=== PATIENT | male | born 1960 | race Caucasian/White ===

== ENCOUNTER 2018-10-30 20:01 | Inpatient (IN) | payer MEDICARE, OTHER ==
[~2018-10-30] VITALS: Ht 363.2 cm; Wt 103.7 kg
[~2018-10-30 20:01] MED LIST: NO MEDS
--- NOTE | 2018-10-30 20:15 | ERD ---
ER Documentation Chief Complaint Chief Complaint Bilateral leg edema HPI The patient is a 58-year-old male, presenting to the ER because of worsening bilateral ankle edema for more than a month and general body swelling, gaining weight. He has been on steroid for more than a month for his kidney disease, denies fever, chills, neck pain, chest pain, dyspnea, abdominal pain, vomiting, complains of constipation, denies dysuria. He does smoke a pack a day, denies drinking Past medical history: Chronic kidney disease, CAD, hypertension Past surgical history: Stent PCI ROS All systems reviewed and are negative except as per history of present illness. Medications Home Meds Reported Medications [No Meds] No Conflict Check 03/09/15 Allergies Allergies: Coded Allergies: No Known Allergy (Unverified , 03/09/15) PMhx/Soc History of Surgery: Yes (NASAL, RIGHT EAR, BILATERAL EYE) Anesthesia Reaction: No Hx Neurological Disorder: No Hx Respiratory Disorders: No Hx Cardiac Disorders: No Hx Psychiatric Problems: No Hx Miscellaneous Medical Probl: No Hx Alcohol Use: No Hx Substance Use: No Hx Tobacco Use: No Physical Exam Vitals Vital Signs Date Temp Pulse Resp B/P (MAP) Pulse Ox O2 O2 Flow FiO2 Time Delivery Rate 10/30/18 97.4 90 23 121/97 100 Room Air 23:44 (105) 10/30/18 92 20 100 Nasal 4.0 23:37 Cannula 10/30/18 98.4 94 16 150/78 100 20:18 (102) Physical Exam Const: No acute distress. Anasarca Head: Atraumatic. Eyes: Normal Conjunctiva. ENT: Normal External Ears, Nose and Mouth. Neck: Full range of motion. No meningismus. Resp: Clear to auscultation bilaterally. Cardio: Regular rate and rhythm. Abd: Soft, non distended, normal bowel sounds, non tender. Skin: No petechiae or rashes. Back: No midline or flank tenderness. Ext: Bilateral leg pitting edema, no calf tenderness Neur: Awake and alert. No focal deficit Psych: Normal Mood and Affect. Result Diagram: 10/30/18203510/30/182035 Results 24 hrs Laboratory Tests Test 10/30/18 20:36 10/30/18 23:31 White Blood Count 14.4 10^3/ul Red Blood Count 1.94 10^6/ul Hemoglobin 5.6 g/dl Hematocrit 17.1 % Mean Corpuscular Volume 88.1 fl Mean Corpuscular Hemoglobin 28.9 pg Mean Corpuscular Hemoglobin Concent 32.7 g/dl Red Cell Distribution Width 16.6 % Platelet Count 221 10^3/UL Mean Platelet Volume 8.9 fl Immature Granulocytes % 2.400 % Neutrophils % % Segmented Neutrophils % (Manual) 79 % Band Neutrophils % (Manual) 3 % Lymphocytes % % Lymphocytes % (Manual) 14 % Monocytes % % Monocytes % (Manual) 4 % Eosinophils % % Basophils % % Nucleated Red Blood Cells % 0.0 /100WBC Immature Granulocytes # 0.340 10^3/ul Neutrophils # 10^3/ul Neutrophils # (Manual) 11.4 10^3/ul Band Neutrophils # 0.4 10^3/ul Lymphocytes (Manual) 2.0 10^3/ul Lymphocytes # 10^3/ul Monocytes # 10^3/ul Monocytes # (Manual) 0.5 10^3/ul Eosinophils # 10^3/ul Basophils # 10^3/ul Nucleated Red Blood Cells # 10^3/ul Platelet Estimate NORMAL Anisocytosis 2+ Microcytosis 2+ Sodium Level 137 mmol/L Potassium Level 5.5 mmol/L Chloride Level 110 mmol/L Carbon Dioxide Level 22 mmol/L Anion Gap 5 Blood Urea Nitrogen 55 mg/dl Creatinine 2.04 mg/dl Est Glomerular Filtrat Rate mL/min 34 mL/min Glucose Level 153 mg/dl Calcium Level 6.7 mg/dl Total Bilirubin 0.2 mg/dl Direct Bilirubin 0.00 mg/dl Indirect Bilirubin 0.2 mg/dl Aspartate Amino Transf (AST/SGOT) 19 IU/L Alanine Aminotransferase (ALT/SGPT) 31 IU/L Alkaline Phosphatase 52 IU/L Troponin I 0.037 ng/ml B-Type Natriuretic Peptide 3220 PG/ML Total Protein 4.0 g/dl Albumin 2.1 g/dl Globulin 1.90 g/dl Albumin/Globulin Ratio 1.10 Bedside Glucose 174 mg/dL Current Medications Medications Dose Sig/Mamadou Start Time Status Last (Trade) Ordered Route PRN Stop Time Admin Dose Reason Admin Ondansetron 4 mg ONCE STAT 10/30/18 DC 10/30/18 HCl (Zofran IV 21:31 22:07 Inj) 10/30/18 21:34 Furosemide 80 mg ONCE ONCE 10/30/18 DC 10/30/18 (Lasix) IV 22:00 22:52 10/30/18 22:01 Sodium 30 gm ONCE STAT 10/30/18 DC 10/30/18 Polystyrene PO 22:07 23:39 Sulfonate 10/30/18 22:13 (Kayexelate 15 Gm Kit (Powder+Sorbi hardeep)) Insulin 5 unit ONCE STAT 10/30/18 DC 10/30/18 Human IVP 22:07 23:38 Regular 10/30/18 22:13 (Humulin R) Dextrose 50 ml ONCE ONCE 10/30/18 DC 10/30/18 (D50w IV 22:30 23:38 Syringe) 10/30/18 22:31 Albuterol 5 mg ONCE STAT 10/30/18 DC 10/30/18 (Proventil HHN 22:07 23:35 0.083% (Neb)) 10/30/18 22:13 IV Flush 3 ml PER 10/30/18 (NS 3 ml) PROTOCOL IV 22:30 Ondansetron 4 mg Q6H PRN 10/30/18 HCl (Zofran PO 22:30 Tab) NAUSEA/VOMITI NG Ondansetron 4 mg Q6H PRN 10/30/18 HCl (Zofran IV 22:30 Inj) NAUSEA/VOMITI NG 650 mg Q6H PRN 10/30/18 Acetaminophen PO .PAIN 1-3 22:30 (Tylenol OR TEMP Tab) 1 tab Q6H PRN 10/30/18 Acetaminophen PO .PAIN 4-6 22:30 / Hydrocodone Bitart ([place] (5/325)) Docusate 100 mg Q12H PRN 10/30/18 Sodium PO 22:30 (Colace) .CONSTIPATION Bisacodyl 5 mg DAILY PRN 10/30/18 (Dulcolax) PO 22:30 .CONSTIPATION Hydralazine 10 mg Q4H PRN 10/30/18 HCl IV ELEVATED 22:30 (Apresoline) BLOOD PRESSURE Procedures/[place] [id number] [place] [id number] Radiology Main Line: [phone] DIAGNOSTIC IMAGING REPORT Patient: PEDRO HERNÁNDEZ : 1960 Age: 58 Sex: M MR #: [id number] DOS: 10/30/182036 Ordering MD: KRISTINE NAVA MD Location: E/R Room/Bed: PROCEDURE: XR Chest. CLINICAL INDICATION: Shortness of breath TECHNIQUE: Frontal chest x-ray was obtained. COMPARISON: None. FINDINGS: The heart is not enlarged. Mediastinum is not widened. No hilar masses seen. Lungs are clear of any infiltrates. There is no effusion or pneumothorax. The osseous structures appear normal. IMPRESSION: No evidence for active cardiopulmonary disease. .Rui Monson MD, Date Time Electronically viewed and signed by .Rui Monson MD, MD on 10/30/2018 22:02 .A/ CC: KRISTINE NAVA MD [id number] [place] [address] Radiology Main Line: [phone] DIAGNOSTIC IMAGING REPORT Patient: PEDRO HERNÁNDEZ : 1960 Age: 58 Sex: M MR #: [id number] DOS: 10/30/182036 Ordering MD: KRISTINE NAVA MD Location: E/R Room/Bed: PROCEDURE: US Lower extremity Venous. CLINICAL INDICATION: Shortness of breath TECHNIQUE: Multiple sonographic images of the bilateral lower extremity deep venous system were obtained utilizing grayscale, color-flow, compressive sonography and doppler imaging with augmentation. The images were reviewed on a PACS workstation. COMPARISON: None. FINDINGS: There is normal compressibility and flow within the bilateral common femoral, deep femoral, superficial femoral and popliteal veins. The deep veins of the calf were incompletely visualized. IMPRESSION: No sonographic evidence for deep venous thrombosis. .Rui Monson MD, Date Time Electronically viewed and signed by .Rui Monson MD, MD on 10/30/2018 22:02 .A/ CC: KRISTINE NAVA MD [phone] EKG: Read by emergency physician Rate/Rhythm: Normal Sinus Rhythm 93 beats/min QRS, ST, T-waves: No ST elevation, no T inversion, nonspecific T abnormality Impression: Abnormal EKG MEDICAL MAKING DECISION: The patient is a 58-year-old male, presenting with acute anasarca, acute symptomatic anemia, acute hyperkalemia. He was treated with Zofran 4 mg IV x2 for nausea, 2 unit of packed red blood cell for acute symptomatic anemia, Lasix 80 mg IV for acute anasarca, 1 amp D50 IV, 5 unit of regular insulin IV, Kayexalate 30 g p.o. and albuterol 5 mg nebulizer for acute hyperkalemia with good response. He requested a Weber catheter The differential diagnoses considered include but are not limited to gastrointestinal bleeding, electrolyte imbalance, asthma, COPD, pneumonia, pulmonary embolus, pleural effusion, congestive heart failure. Critical Care: Time: 35 minutes excluding all billable procedures. Treatments/Evaluations: Close monitoring and treatment of unstable vital signs, cardiorespiratory, and neurologic status, while maintaining tight balance of fluid, respiratory, and cardiac interventions. Departure Diagnosis: Primary Impression: Anasarca Additional Impressions: Hyperkalemia Symptomatic anemia Condition: Stable Comments I discussed the findings with the patient. I discussed the patient with Dr Valiente at 10:10 PM, who was made aware of the lab, the treatment, the patient condition. The patient is admitted to Tel Disclaimer: Inadvertent spelling and grammatical errors are likely due to EHR/dictation software use and do not reflect on the overall quality of patient care. Also, please note that the electronic time recorded on this note does not necessarily reflect the actual time of the patient encounter. KRISTINE NAVA MD Oct 30, 2018 20:15
[2018-10-30] MEDS ORDERED: ONDANSETRON 4 MG INJ IV STA (21:31)
[2018-10-30] MEDS ORDERED: FUROSEMIDE 40 MG INJ IV ONE (22:00)
[2018-10-30] MEDS ORDERED: SODIUM POLYSTYRENE 15 GM KIT (POWDER + SORBITOL) PO STA (22:07)
[2018-10-30] MEDS ORDERED: ALBUTEROL 0.083% (NEB) 2.5 MG/3 ML AMP HHN STA (22:07)
[2018-10-30] MEDS ORDERED: INSULIN REGULAR, HUMAN 100 UNIT/1 ML 3ML VIAL IVP STA (22:07)
[2018-10-30] MEDS ORDERED: HYDROCODONE/APAP (5/325) TAB PO PRN (22:30)
[2018-10-30] MEDS ORDERED: ONDANSETRON 4 MG INJ IV PRN (22:30)
[2018-10-30] MEDS ORDERED: DEXTROSE 50% 50 ML SYRINGE IV ONE (22:30)
[2018-10-30] MEDS ORDERED: ACETAMINOPHEN 325 MG TAB PO PRN (22:30)
[2018-10-30] MEDS ORDERED: NACL 0.9% 3 ML SYG IV SCH (22:30)
[2018-10-30] MEDS ORDERED: BISACODYL (EC) 5 MG TAB PO PRN (22:30)
[2018-10-30] MEDS ORDERED: DOCUSATE SODIUM 100 MG CAP PO PRN (22:30)
[2018-10-30] MEDS ORDERED: ONDANSETRON 4 MG TAB PO PRN (22:30)
[2018-10-30] MEDS ORDERED: hydrALAzine 20 MG INJ IV PRN (22:30)
[2018-10-31] VITALS (27 sets, daily range): BP systolic 132–196; BP diastolic 72–141; PULSE 80–111; RESP 11–25; Ht 363.2 cm; Wt 103.7 kg
[2018-10-31] MEDS ORDERED: CLOP75TA28 PO (00:31)
[2018-10-31] MEDS ORDERED: NIFE90TA11 PO (00:31)
[2018-10-31] MEDS ORDERED: PRED20TA PO (00:43)
[2018-10-31] MEDS ORDERED: CALC1TAB93 PO (01:18)
[2018-10-31] MEDS ORDERED: CARV6.2579 PO (01:18)
[2018-10-31] MEDS ORDERED: FURO20TA3 PO (01:18)
[2018-10-31] MEDS ORDERED: ASPI-817 PO (01:18)
[2018-10-31] MEDS ORDERED: FAMO20TA18 PO (01:18)
[2018-10-31] MEDS ORDERED: FAMOTIDINE IV 40 MG in SOD CHLORIDE 0.9% 250 ML IV SCH (04:00)
--- NOTE | 2018-10-31 04:25 | HP ---
Date/Time of Note Date/Time of Note DATE: 10/31/18 TIME: 03:52 Assessment/Plan VTE Prophylaxis SCD applied (from Nsg): Yes Pharmacological prophylaxis: NA/contraindicated Pharm contraindication: low risk/ambulating Lines/Catheters IV Catheter Type (from Nrsg): Saline Lock Assessment/Plan Hospital Course This is a 58-year-old male who was originally admitted to telemetry but is now being transferred to the ICU for: #1 active GI bleed: Patient does have a history of gastritis based on previous endoscopy/colonoscopy results. He had a dark bloody bowel movement followed by a dark vomitus during my encounter. Patient initially presented with hemoglobin of 5.6. He was ordered 2 units of PRBCs. At the current time I am going to be transferring him him in urgently to the ICU. We will start him on a famotidine drip as well as octreotide drip. I will order an additional 2 units of PRBC so a total of 4. Will check CBC every 6 hours. I will obtain a KUB. Once he is more stabilized will obtain a CT of the abdomen pelvis for a nuclear medicine scan bleeding scan. Will consult GI he has seen him in the past. #2 Acute on chronic kidney disease: I am concerned for possible nephrotic syndrome, though patient reports that his kidneys were fine up until May and that they went bad after he got contrast. He is currently been on steroids for the last month which leads me to believe that he may have some underlying medical renal disease. We will check a renal ultrasound. He microscopic UA, urinalysis, protein [employer]ING [employer]. We will check complement C3-C4. Will consult Dr. Brand. #3 coronary artery disease: Patient is status post stenting in May. He is currently on aspirin and Plavix. Given his GI bleed I will hold these. Will consult cardiology. #4 elevated BNP: we will check an echocardiogram, CHF could explain the lower extremity edema however his generalized anasarca I suspect is more likely secondary to another underlying disease. Will consult cardiology #5 Hyperkalemia: Patient present with a potassium 5.5. He did receive insulin albuterol, Kayexalate in the emergency department. #6 hypoalbuminemia: Possibly secondary to nephrotic syndrome, versus other. Will assess for underlying medical renal disease, #7 hypertension: Monitor closely PRN hydralazine #8 DVT GI prophylaxis: SCDs, famotidine drip Further treatment strategy will be implemented as per the clinical course Greater than 45 minutes critical care time was spent on the care management this patient. Result Diagram: 10/30/18203510/30/182035 Results 24hrs Laboratory Tests Test 10/30/18 20:36 10/30/18 23:31 10/31/18 00:34 White Blood Count 14.4 H Red Blood Count 1.94 L Hemoglobin 5.6 *L Hematocrit 17.1 L Mean Corpuscular Volume 88.1 Mean Corpuscular Hemoglobin 28.9 L Mean Corpuscular Hemoglobin Concent 32.7 Red Cell Distribution Width 16.6 H Platelet Count 221 Mean Platelet Volume 8.9 Immature Granulocytes % 2.400 H Neutrophils % Segmented Neutrophils % (Manual) 79 H Band Neutrophils % (Manual) 3 Lymphocytes % Lymphocytes % (Manual) 14 L Monocytes % Monocytes % (Manual) 4 Eosinophils % Basophils % Nucleated Red Blood Cells % 0.0 Immature Granulocytes # 0.340 H Neutrophils # Neutrophils # (Manual) 11.4 H Band Neutrophils # 0.4 Lymphocytes (Manual) 2.0 Lymphocytes # Monocytes # Monocytes # (Manual) 0.5 Eosinophils # Basophils # Nucleated Red Blood Cells # Platelet Estimate NORMAL Anisocytosis 2+ Microcytosis 2+ Sodium Level 137 Potassium Level 5.5 H Chloride Level 110 Carbon Dioxide Level 22 Anion Gap 5 Blood Urea Nitrogen 55 H Creatinine 2.04 H Est Glomerular Filtrat Rate mL/min 34 L Glucose Level 153 Calcium Level 6.7 L Total Bilirubin 0.2 Direct Bilirubin 0.00 Indirect Bilirubin 0.2 Aspartate Amino Transf (AST/SGOT) 19 Alanine Aminotransferase (ALT/SGPT) 31 Alkaline Phosphatase 52 Troponin I 0.037 B-Type Natriuretic Peptide 3220 H Total Protein 4.0 L Albumin 2.1 L Globulin 1.90 Albumin/Globulin Ratio 1.10 Bedside Glucose 174 248 H HPI/ROS Admit Date/Time Admit Date/Time Oct 30, 2018 at 22:13 Hx of Present Illness cc: worsening body swelling Patient is a poor historian The patient is a 58-year-old male, presenting to the ER because of worsening bilateral ankle edema for more than a month and general body swelling, gaining weight. He has been on steroid for more than a month for his kidney disease. He denies any hemetemesis, or melena, or bright red blood per rectum. During my encounter with the patient he actively had a very dark bowel movement and vomited dark blood as well. He denied any abd pain. he states he was stented in May at an outside hospital and he states he was told he developed kidney problems after due to the contrast he received. He has been on prednisone for that according to him. allergies: nkda meds: see jul ROS Const: As per HPI Eyes : No pain discharge or redness or change in visual acuity ENT: No pain, sore throat, congestion, congestion, dysphagia or discharge Respiratory: No shortness of breath, cough, sputum, wheezing, or pleuritic pain Cardiovascular: No chest pain, palpitation, PND, or edema GI : As per HPI Genitourinary: No dysuria, hematuria, flank pain , discharge or CVA tenderness Musculoskeletal: No joint pain, back pain, neck pain, restricted range of motion in neck or joints Skin: No rash, bruising or hives Neuro: No headache, dizziness, syncope, seizure, focal weakness Endocrine: No polyuria, polydipsia, temperature intolerance Psych: No hallucination, depression, anxiety or suicidal ideation PMH/Family/Social Past Medical History 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?, CAD, hype rtension Medications Current Medications IV Flush (NS 3 ml) 3 ml PER PROTOCOL IV ; Start 10/30/18 at 22:30 Ondansetron HCl (Zofran Tab) 4 mg Q6H PRN PO NAUSEA/VOMITING; Start 10/30/18 at 22:30 Ondansetron HCl (Zofran Inj) 4 mg Q6H PRN IV NAUSEA/VOMITING; Start 10/30/18 at 22:30 Acetaminophen (Tylenol Tab) 650 mg Q6H PRN PO .PAIN 1-3 OR TEMP; Start 10/30/18 at 22:30 Acetaminophen/ Hydrocodone Bitart ([place] (5/325)) 1 tab Q6H PRN PO .PAIN 4-6; Start 10/30/18 at 22:30 Bisacodyl (Dulcolax) 5 mg DAILY PRN PO .CONSTIPATION; Start 10/30/18 at 22:30 Octreotide Acetate 1 mg/ Dextrose 100 ml @ 5 mls/hr Q20H IV ; Start 10/31/18 at 04:00; Status UNV Famotidine 40 mg/ Sodium Chloride 254 ml @ 11 mls/hr Q23H6M IV ; Start 10/31/18 at 04:00; Status UNV Albumin Human 100 ml @ 100 mls/hr Q8H IV ; Start 10/31/18 at 04:00; Stop 10/31/18 at 20:59; Status UNV Metoprolol Tartrate (Lopressor) 2.5 mg Q6 PRN IV ELEVATED BLOOD PRESSURE; Start 10/31/18 at 04:00; Status UNV Miscellaneous Information (* Miscellaneous Pharmacy Order) Discontinue current oral sulfonylur... ONCE ONCE XX ; Start 10/31/18 at 04:00; Stop 10/31/18 at 04:01; Status UNV Diagnostic Test (Pha) (Accu-Chek) 1 XX ; Start 11/01/18 at 02:00; Status UNV Miscellaneous Information (* Miscellaneous Pharmacy Order) HYPOGLYCEMIA PROTOCOL w... ONCE ONCE XX ; Start 10/31/18 at 04:00; Stop 10/31/18 at 04:01; Status UNV Insulin Aspart (Novolog Insulin Pen) NOVOLOG *MILD* ALGORI... Q4 SC ; Start 10/31/18 at 05:00; Status UNV Miscellaneous Information (* Miscellaneous Pharmacy Order) Discontinue all previ... ONCE ONCE XX ; Start 10/31/18 at 04:00; Stop 10/31/18 at 04:01; Status UNV Coded Allergies: No Known Allergy (Unverified , 10/31/18) Past Surgical History Stent PCI Family History Significant Family History: no pertinent family hx Social History Alcohol Use: none Smoking Status: Current every day smoker Drug Use: none Exam/Review of Systems Vital Signs Vitals Vital Signs Date Temp Pulse Resp B/P (MAP) Pulse Ox O2 O2 Flow FiO2 Time Delivery Rate 10/31/18 97.7 102 18 154/86 99 Room Air 02:50 (108) 10/30/18 4.0 23:37 Exam Exam General: Patient is currently sitting upright in bed, he was actively vomiting dark blood while it was during my assessment, he also had a very dark bloody bowel movement HEENT: Atraumatic, normocephalic. The pupils are equal, round and reactive. Extraocular motor are intact Neck: Supple with full range of motion. No rigidity or meningismus Chest: Nontender Lungs: Clear to auscultation bilaterally no crackles rales or wheezing Heart: Normal S1-S2, Regular rhythm and rate. No murmur, S3, or S4 Abdomen: Obese, nontender, nondistended , bowel sounds are present. No guarding no rebound tenderness , No masses or organomegaly. No costovertebral temporal angle mass. Patient had a active dark bowel movement during my encounter Extremities: Normal to inspection, no edema no cyanosis Genitourinary: Weber in place Skin: Generalized anasarca of the bilateral upper and lower extremities as well as abdomen Neurologic: Normal mental status, speech normal, cranial nerves II through XII are intact, motor and sensory are intact, Additional Comments PROCEDURE: XR Chest. CLINICAL INDICATION: Shortness of breath TECHNIQUE: Frontal chest x-ray was obtained. COMPARISON: None. FINDINGS: The heart is not enlarged. Mediastinum is not widened. No hilar masses seen. Lungs are clear of any infiltrates. There is no effusion or pneumothorax. The osseous structures appear normal. IMPRESSION: No evidence for active cardiopulmonary disease. .Rui Monson MD, MD Date Time Electronically viewed and signed by .Rui Monson MD, MD on 10/30/2018 22:02 .A/ CC: KRISTINE NAVA MD [phone] PROCEDURE: US Lower extremity Venous. CLINICAL INDICATION: Shortness of breath TECHNIQUE: Multiple sonographic images of the bilateral lower extremity deep venous system were obtained utilizing grayscale, color-flow, compressive sonography and doppler imaging with augmentation. The images were reviewed on a PACS workstation. COMPARISON: None. FINDINGS: There is normal compressibility and flow within the bilateral common femoral, deep femoral, superficial femoral and popliteal veins. The deep veins of the calf were incompletely visualized. IMPRESSION: No sonographic evidence for deep venous thrombosis. .Rui Monson MD, Date Time Electronically viewed and signed by .Rui Monson MD, MD on 10/30/2018 22:02 .A/ CC: KRISTINE NAVA MD [id number] BONNIE LEACH Oct 31, 2018 04:02
[2018-10-31] MEDS: INSULIN ASPART [NOVOLOG] 3 ML PEN SC SCH ×5 (05:28→20:27)
[2018-10-31] MEDS: ALBUMIN HUMAN 25% 100 ML IV SCH ×3 (05:29→19:33)
[2018-10-31] MEDS: OCTREOTIDE 1 MG in DEXTROSE 5% 95 ML IV SCH (05:39)
[2018-10-31] MEDS ORDERED: METOLAZONE 5 MG TAB PO ONE (08:30)
[2018-10-31] MEDS ORDERED: INSULIN REGULAR, HUMAN 100 UNIT/1 ML 3ML VIAL IVP STA (10:18)
[2018-10-31] MEDS ORDERED: ALBUTEROL 0.083% (NEB) 2.5 MG/3 ML AMP HHN STA (10:26)
[2018-10-31] MEDS ORDERED: DEXTROSE 50% 50 ML SYRINGE IV PRN (10:30)
[2018-10-31] MEDS ORDERED: LIDOCAINE 1% (MPF) 5 ML VIAL SC ONE (10:30)
[2018-10-31] MEDS ORDERED: BUMETANIDE 6 MG in DEXTROSE 5% 36 ML IV ONE (12:00)
--- NOTE | 2018-10-31 12:31 | CONS ---
DATE OF ADMISSION: 10/30/2018 DATE OF CONSULTATION: 10/31/2018 TYPE OF CONSULTATION: Nephrology. REASON FOR CONSULTATION: Acute kidney injury, chronic kidney disease, volume overload. PHYSICIAN REQUESTING CONSULTATION: Dr. Leach. HISTORY OF PRESENT ILLNESS: This is a 58-year-old male with a past medical history of hypertension, history of coronary artery disease who presents to [facility] with increased total body swelling. The patient states that his history began about a month ago when he underwent coronary angiogram with PCI and stent placement. Following that the patient states he went into acute kidney injury. He also developed severe swelling and total body anasarca. The patient went to her primary shroudman, which placed him on steroids. The patient states that his swelling has progressively worsened. As a result, he was brought into [facility] Emergency Room. The patient also describes having abdominal pain and dark stools. Upon arrival to the emergency room, the patient had a CT scan of abdomen and pelvis, which showed mild ascites, diverticulosis and possible cirrhosis of the liver. The patient was placed on octreotide drip and admitted to ICU for observation. In terms of the patient's renal history, the patient as stated above month ago developed acute kidney injury after cardiac procedure. The patient was also told that he had protein in his urine. The patient states his primary shroudman placed him on steroids. Renal biopsy was unable to be performed as the patient was on antiplatelet therapy. The patient states, however, his swelling and edema has progressively worsened. The patient describes frothy urine, no rashes. PAST MEDICAL HISTORY: History of coronary artery disease, history of hypertension, questionable history of nephrotic syndrome. FAMILY HISTORY: No family history of kidney disease. SOCIAL HISTORY: He does not drink, smoke, do drugs. MEDICATIONS: The patient's medications have been reviewed. ALLERGIES: NO KNOWN DRUG ALLERGIES. REVIEW OF SYSTEMS: A 14-point review of systems was conducted. Pertinent positives stated in HPI, otherwise negative. PHYSICAL EXAMINATION: VITAL SIGNS: Blood pressure is 162/83, respirations 25, pulse 104, temperature 97.7. HEENT: Head is normocephalic. NECK: Supple. HEART: Regular rate. LUNGS: Show diminished breath sounds at the base. ABDOMEN: Soft, nontender to palpation. No rebound or guarding. EXTREMITIES: Negative for clubbing, cyanosis. Positive edema, diffuse anasarca. DERMATOLOGIC: No rashes. MUSCULOSKELETAL: No joint effusion. NEUROLOGIC: No deficits. LABORATORY DATA: Reviewed. Urinalysis was reviewed. IMAGING STUDIES: Reviewed. ASSESSMENT AND PLAN: This is a 58-year-old male who presents with: 1. oliguric acute kidney injury with unknown baseline creatinine. Etiology of acute kidney injury is likely possibly multifactorial, i.e. tubular injury, hemodynamics. The patients Fena <1%, which can be seen in decreased effective arterial volume, ie, CRS, sepsis possible Cardiorenal syndrome. Other possibilities include primary glomerulopathy. The patient's urinalysis does show evidence of transitional epithelial cells, which can be seen in tubular injury. The patient has nonglomerular proteinuria approximately 1.8 grams per gram of creatinine. CT scans do not show evidence of obstruction. Recommendation at this point is to undergo full evaluation. We will check serologies. We will re-quantify the patient's proteinuria. Check an SPEP, UPEP. We would continue diuretic therapy, monitor renal function and electrolytes closely. Please note a diagnosis of HRS cannot be made given patients proteinuria which is an exclusionary criteria. 2. Hyperkalemia, likely secondary to acute kidney injury. The patient is status post Kayexalate. The patient will be placed on low potassium diet and monitor. 3. Volume overload, diffuse anasarca. Etiology is unclear, possible heart failure, right-sided diastolic. The possibility of nephrotic syndrome is less likely as the patient does not have significant proteinuria. Plan is to repeat a protein creatinine ratio, microalbumin creatinine ratio. We will continue diuretic therapy. Follow up 2D echo. Monitor closely. 4. Mineral bone disorder, monitor calcium and phosphorus levels. 5. Possible cirrhosis. Continue to monitor. Continue medical management. 6. Active gastrointestinal bleed. Etiology may be secondary to varices. The patient is pending blood transfusion. Continue octreotide, proton pump inhibitor. Follow up with GI. 7. Hypertension. Continue current blood pressure regimen. Continue diuretic therapy. 8. History of coronary artery disease, status post PCI. Continue medical management. 9. Systemic inflammatory response syndrome. The patient has elevated white count. Etiology may be reactive versus infectious in etiology. Continue to monitor. Workup is ongoing. Thank you, Dr. Leach, for this interesting consult. It will be a pleasure to follow the patient with you throughout the hospital course. Dictated By: ARDEN BECKHAM DO NR/NTS Conf#: [id number] DID#: [id number] CC: BONNIE LEACH MD; LENARD PIÑA MD; DAYNA GOODEN MD;*EndCC* MTDD
[2018-10-31] MEDS: METOPROLOL 5 MG INJ IV PRN ×2 (13:14→21:43)
--- NOTE | 2018-10-31 14:58 | CONS ---
Assessment/Plan Assessment/Plan Hospital Course (Demo Recall) Acute kidney injury Volume overload Acute blood loss anemia CAD with history of PCI April 2018 Hypertension Dyslipidemia Tobacco use Patient with evidence of significant volume overload with anasarca, acute kidney injury and hyperkalemia. He is currently being initiated on a Bumex drip as per nephrology. As per the patient, his renal dysfunction began after coronary angiogram of April 2018 Given patient with severe anemia, and cardiac stent greater than 6 months, would hold Plavix at the current time given the risks of antiplatelet therapy appeared to outweigh the benefits. I will request records from [facility] We will restart patient's oral beta-dotty, statin therapy if no contraindication Check echocardiogram Consultation Date/Type/Reason Admit Date/Time Oct 30, 2018 at 22:13 Type of Consult Cardiology Reason for Consultation Cardiology evaluation Date/Time of Note DATE: 10/31/18 TIME: 14:52 Hx of Present Illness This is a 58-year-old male with past medical history of coronary artery disease with PCI in April 2018, hypertension, renal dysfunction who presents with progressive worsening edema over the past 6 months, and shortness of breath since yesterday. Symptoms of edema began after he had his cardiac catheterization in April 2018. Patient was admitted at [facility] and had an angiogram and had a stent placed at that time. As per the patient, this was not in the setting of a myocardial infarction. After that, he noticed abnormal renal function and progressive worsening edema. 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 He has noticed more fatigue over the past few weeks and shortness of breath which began yesterday with exertion. His symptoms are improved at rest. Denies any exertional chest pain. Denies any dizziness or lightheadedness. 12 point review of systems was performed with all pertinent positives and negatives mentioned above and all else is negative Past Medical History Medical History: coronary artery disease, high cholesterol, hypertension Home Meds Reported Medications Aspirin* (Aspirin* EC) 81 Mg Tablet.dr, 81 MG PO DAILY for 30 Days, #30 10/31/18 Furosemide* (Furosemide*) 20 Mg Tablet, 20 MG PO for EVERY OTHER DAY for 30 Days TAKE ONE TABLET BY MOUTH EVERY OTHER DAY 10/31/18 Calcium Carbonate/Vitamin D3 (OYSTER SHELL 500 MG + VIT D TB) 1 Each Tablet, 1 TAB PO BID TAKE ONE TABLET BY MOUTH 2 TIMES A DAY 10/31/18 Carvedilol* (Carvedilol*) 6.25 Mg Tablet, 6.25 MG PO Q12H for 30 Days TAKE 1 TAB BY MOUTH EVERY 12 HOURS HOLD IF HEART RATE UNDER 60 OR SBP UNDER 100 10/31/18 Famotidine* (Famotidine*) 20 Mg Tablet, 20 MG PO DAILY for 30 Days, #30 10/31/18 Prednisone* (Prednisone*) 20 Mg Tab, 20 MG PO DAILY 10/31/18 Clopidogrel Bisulfate (Clopidogrel) 75 Mg Tablet, 75 MG PO DAILY 10/31/18 Nifedipine* (Nifedipine ER*) 90 Mg Tablet.er, 90 MG PO DAILY for 30 Days, #30 10/31/18 Discontinued Reported Medications [No Meds] No Conflict Check 03/09/15 Medications Current Medications IV Flush (NS 3 ml) 3 ml PER PROTOCOL IV ; Start 10/30/18 at 22:30 Ondansetron HCl (Zofran Tab) 4 mg Q6H PRN PO NAUSEA/VOMITING; Start 10/30/18 at 22:30 Ondansetron HCl (Zofran Inj) 4 mg Q6H PRN IV NAUSEA/VOMITING; Start 10/30/18 at 22:30 Acetaminophen (Tylenol Tab) 650 mg Q6H PRN PO .PAIN 1-3 OR TEMP; Start 10/30/18 at 22:30 Acetaminophen/ Hydrocodone Bitart (Metaline (5/325)) 1 tab Q6H PRN PO .PAIN 4-6; Start 10/30/18 at 22:30 Bisacodyl (Dulcolax) 5 mg DAILY PRN PO .CONSTIPATION; Start 10/30/18 at 22:30 Octreotide Acetate 1 mg/ Dextrose 100 ml @ 5 mls/hr Q20H IV Last administered on 10/31/18at 05:39; Admin Dose 5 MLS/HR; Start 10/31/18 at 04:00 Famotidine 40 mg/ Sodium Chloride 254 ml @ 11 mls/hr Q23H6M IV Last administered on 10/31/18at 05:39; Admin Dose 11 MLS/HR; Start 10/31/18 at 04:00 Albumin Human 100 ml @ 100 mls/hr Q8H IV Last administered on 10/31/18at 13:03; Admin Dose 100 MLS/HR; Start 10/31/18 at 04:00; Stop 10/31/18 at 20:59 Metoprolol Tartrate (Lopressor) 2.5 mg Q6H PRN IV for systolic above 170 Last administered on 10/31/18at 13:14; Admin Dose 2.5 MG; Start 10/31/18 at 04:00 Insulin Aspart (Novolog Insulin Pen) NOVOLOG *MILD* ALGORI... Q4 SC Last a dministered on 10/31/18at 05:28; Admin Dose 1 UNIT; Start 10/31/18 at 05:00 Dextrose (D50w Syringe) ONCE PRN IV DECREASED GLUCOSE Last administered on 10/31/18at 11:36; Admin Dose 50 ML; Start 10/31/18 at 10:30; Stop 11/01/18 at 10:29 Bumetanide 6 mg/ Dextrose 60 ml @ 10 mls/hr Q6H ONCE IV Last administered on 10/31/18at 13:05; Admin Dose 10 MLS/HR; Start 10/31/18 at 12:00; Stop 10/31/18 at 17:59 Allergies: Coded Allergies: No Known Allergy (Unverified , 10/31/18) Past Surgical History Past Surgical Hx: angioplasty Social History Alcohol Use: none Smoking Status: Current every day smoker Drug Use: none Exam/Review of Systems Vital Signs Vitals Vital Signs Date Temp Pulse Resp B/P (MAP) Pulse Ox O2 O2 Flow FiO2 Time Delivery Rate 10/31/18 101 12:00 10/31/18 15 98 21 11:09 10/31/18 162/83 Room Air 07:00 (109) 10/31/18 97.7 05:05 10/30/18 4.0 23:37 Intake and Output 10/30/18 10/30/18 10/31/18 1515:00 23:00 07:00 IntakeIntake Total 350 ml OutputOutput Total 35 ml BalanceBalance 315 ml Exam Constitutional: alert, oriented, other (Obese, no apparent distress, no dyspnea with speaking) Head: normocephalic Respiratory: other (Coarse breath sounds bilaterally, no wheezing) Cardiovascular: regular rate and rhythm (S1-S2 heard) Gastrointestinal: soft, non-tender, bowel sounds Extremities: edema Labs Result Diagram: 10/31/18 1425 10/31/18 0819 Results 24hrs Laboratory Tests Test 10/30/18 20:36 10/30/18 23:31 10/31/18 00:34 10/31/18 03:10 White Blood Count 14.4 H Red Blood Count 1.94 L Hemoglobin 5.6 *L Hematocrit 17.1 L Mean Corpuscular 88.1 Volume Mean Corpuscular 28.9 L Hemoglobin Mean Corpuscular 32.7 Hemoglobin Concent Red Cell 16.6 H Distribution Width Platelet Count 221 Mean Platelet Volume 8.9 Immature 2.400 H Granulocytes % Neutrophils % Segmented 79 H Neutrophils % (Manual) Band Neutrophils % 3 (Manual) Lymphocytes % Lymphocytes % 14 L (Manual) Monocytes % Monocytes % (Manual) 4 Eosinophils % Basophils % Nucleated Red Blood 0.0 Cells % Immature 0.340 H Granulocytes # Neutrophils # Neutrophils # 11.4 H (Manual) Band Neutrophils # 0.4 Lymphocytes (Manual) 2.0 Lymphocytes # Monocytes # Monocytes # (Manual) 0.5 Eosinophils # Basophils # Nucleated Red Blood Cells # Platelet Estimate NORMAL Anisocytosis 2+ Microcytosis 2+ Sodium Level 137 Potassium Level 5.5 H Chloride Level 110 Carbon Dioxide Level 22 Anion Gap 5 Blood Urea Nitrogen 55 H Creatinine 2.04 H Est Glomerular 34 L Filtrat Rate mL/min Glucose Level 153 Calcium Level 6.7 L Total Bilirubin 0.2 Direct Bilirubin 0.00 Indirect Bilirubin 0.2 Aspartate Amino 19 Transf (AST/SGOT) Alanine 31 Aminotransferase (AL T/SGPT) Alkaline Phosphatase 52 Troponin I 0.037 B-Type Natriuretic 3220 H Peptide Total Protein 4.0 L Albumin 2.1 L Globulin 1.90 Albumin/Globulin 1.10 Ratio Bedside Glucose 174 248 H Urine Color YELLOW Urine Clarity CLOUDY A Urine pH 5.0 Urine Specific 1.013 Streeter Urine Ketones NEGATIVE Urine Nitrite NEGATIVE Urine Bilirubin NEGATIVE Urine Urobilinogen NEGATIVE Urine Leukocyte NEGATIVE Esterase Urine Microscopic 9 H RBC Urine Microscopic 3 WBC Urine Squamous FEW Epithelial Cells Urine Transitional FEW A Epithelial Cells Urine Bacteria FEW A Urine Mucus FEW A Urine Hemoglobin 1+ H Urine Random 96.11 Creatinine Urine Random Sodium 26 L Urine 1.80 Protein/Creatinine Ratio Urine Glucose 1+ H Urine Total Protein 173.0 H Test 10/31/18 05:25 10/31/18 08:19 10/31/18 08:20 10/31/18 08:26 Bedside Glucose 145 107 White Blood Count 19.0 #H Red Blood Count 2.17 L Hemoglobin 6.3 *L Hematocrit 19.1 L Mean Corpuscular 88.0 Volume Mean Corpuscular 29.0 Hemoglobin Mean Corpuscular 33.0 Hemoglobin Concent Red Cell 16.1 H Distribution Width Platelet Count 164 # Mean Platelet Volume 9.5 Immature 2.300 H Granulocytes % Neutrophils % 60.9 Lymphocytes % 26.3 Monocytes % 10.1 Eosinophils % 0.3 Basophils % 0.1 Nucleated Red Blood 0.2 H Cells % Immature 0.430 H Granulocytes # Neutrophils # 11.6 H Lymphocytes # 5.0 H Monocytes # 1.9 H Eosinophils # 0.1 Basophils # 0.0 Nucleated Red Blood 0.0 Cells # Prothrombin Time 16.5 H Prothrombin Time 1.3 Ratio INR International 1.32 Normalized Ratio Activated 27.1 Partial Thromboplast Time Sodium Level 140 Potassium Level 5.9 H Chloride Level 110 Carbon Dioxide Level 21 Anion Gap 9 Blood Urea Nitrogen 65 H Creatinine 2.51 H Est Glomerular 27 L Filtrat Rate mL/min Glucose Level 93 # Hemoglobin A1c 5.7 Calcium Level 6.3 L Phosphorus Level 5.9 H Ferritin 1270.0 H Hepatitis B Surface NEGATIVE Antibody Magnesium Level 2.1 Iron Level 129 Total Iron Binding 168 L Capacity Percent Iron 77 H Saturation Triglycerides Level 338 H Cholesterol Level 174 LDL Cholesterol, 72 Calculated HDL Cholesterol 34 Cholesterol/HDL 5.1 Ratio Thyroid Stimulating 4.950 H Hormone (TSH) Complement C3 61 L Complement C4 23 Hepatitis A Antibody POSITIVE H Total Hepatitis B Surface NEGATIVE Antigen Hepatitis B Core NEGATIVE Total Antibody Hepatitis C Antibody NEGATIVE Test 10/31/18 09:00 10/31/18 11:35 10/31/18 12:16 10/31/18 13:04 Urine Color YELLOW Urine Clarity CLOUDY A Urine pH 5.0 Urine Specific 1.014 Streeter Urine Ketones NEGATIVE Urine Nitrite NEGATIVE Urine Bilirubin NEGATIVE Urine Urobilinogen NEGATIVE Urine Leukocyte TRACE A Esterase Urine Microscopic 4 RBC Urine Microscopic 11 H WBC Urine Squamous FEW Epithelial Cells Urine Amorphous FEW A Crystals Urine Bacteria FEW A Urine Mucus FEW A Urine Hemoglobin 1+ H Urine Random 154.52 Creatinine Urine Random Sodium < 13 L Urine Glucose NEGATIVE Urine Total Protein 193.0 H Bedside Glucose 114 138 89 Test 10/31/18 14:25 White Blood Count 16.0 H Red Blood Count 2.72 #L Hemoglobin 8.1 #L Hematocrit 23.7 #L Mean Corpuscular 87.1 Volume Mean Corpuscular 29.8 Hemoglobin Mean Corpuscular 34.2 Hemoglobin Concent Red Cell 16.3 H Distribution Width Platelet Count 116 #L Mean Platelet Volume 10.5 H Immature 2.100 H Granulocytes % Neutrophils % 61.2 Lymphocytes % 27.9 Monocytes % 8.2 Eosinophils % 0.5 Basophils % 0.1 Nucleated Red Blood 0.2 H Cells % Immature 0.340 H Granulocytes # Neutrophils # 9.8 H Lymphocytes # 4.5 H Monocytes # 1.3 H Eosinophils # 0.1 Basophils # 0.0 Nucleated Red Blood 0.0 Cells # Imaging Imaging ECG with sinus rhythm at 93 bpm, normal QRS duration, nonspecific ST abnormalities Medications Medications Current Medications IV Flush (NS 3 ml) 3 ml PER PROTOCOL IV ; Start 10/30/18 at 22:30 Ondansetron HCl (Zofran Tab) 4 mg Q6H PRN PO NAUSEA/VOMITING; Start 10/30/18 at 22:30 Ondansetron HCl (Zofran Inj) 4 mg Q6H PRN IV NAUSEA/VOMITING; Start 10/30/18 at 22:30 Acetaminophen (Tylenol Tab) 650 mg Q6H PRN PO .PAIN 1-3 OR TEMP; Start 10/30/18 at 22:30 Acetaminophen/ Hydrocodone Bitart (Metaline (5/325)) 1 tab Q6H PRN PO .PAIN 4-6; Start 10/30/18 at 22:30 Bisacodyl (Dulcolax) 5 mg DAILY PRN PO .CONSTIPATION; Start 10/30/18 at 22:30 Octreotide Acetate 1 mg/ Dextrose 100 ml @ 5 mls/hr Q20H IV Last administered on 10/31/18at 05:39; Admin Dose 5 MLS/HR; Start 10/31/18 at 04:00 Famotidine 40 mg/ Sodium Chloride 254 ml @ 11 mls/hr Q23H6M IV Last administered on 10/31/18at 05:39; Admin Dose 11 MLS/HR; Start 10/31/18 at 04:00 Albumin Human 100 ml @ 100 mls/hr Q8H IV Last administered on 10/31/18at 13:03; Admin Dose 100 MLS/HR; Start 10/31/18 at 04:00; Stop 10/31/18 at 20:59 Metoprolol Tartrate (Lopressor) 2.5 mg Q6H PRN IV for systolic above 170 Last administered on 10/31/18at 13:14; Admin Dose 2.5 MG; Start 10/31/18 at 04:00 Insulin Aspart (Novolog Insulin Pen) NOVOLOG *MILD* ALGORI... Q4 SC Last administered on 10/31/18 05:28; Admin Dose 1 UNIT; Start 10/31/18 at 05:00 Dextrose (D50w Syringe) ONCE PRN IV DECREASED GLUCOSE Last administered on 10/31/18at 11:36; Admin Dose 50 ML; Start 10/31/18 at 10:30; Stop 11/01/18 at 10:29 Bumetanide 6 mg/ Dextrose 60 ml @ 10 mls/hr Q6H ONCE IV Last administered on 10/31/18at 13:05; Admin Dose 10 MLS/HR; Start 10/31/18 at 12:00; Stop 10/31/18 at 17:59 Anirudh Downey DO Oct 31, 2018 14:58
[2018-10-31] MEDS ORDERED: hydrALAzine 20 MG INJ IV PRN ×2 (15:00→23:00)
--- NOTE | 2018-10-31 15:01 | PN ---
Date/Time of Note Date/Time of Note DATE: 10/31/18 TIME: 14:51 Assessment/Plan VTE Prophylaxis SCD applied (from Nsg): Yes Pharmacological prophylaxis: NA/contraindicated Pharm contraindication: bleeding Lines/Catheters IV Catheter Type (from Nrsg): Peripheral IV Assessment/Plan Hospital Course 1. Anemia secondary to active GI bleed Patient with a history of gastritis per previous endoscopy, patient with melena and upper GI bleed on admission as well as anemia Status post blood transfusion Continue famotidine drip as well as octreotide drip. GI consultation with Dr. Whitaker has been obtained CT abdomen does show cirrhosis and possible colitis 2. Acute kidney injury on possible CKD Nephrology consultation appreciated Baseline creatinine unknown 3. Anasarca secondary to cirrhosis and/or heart failure Nephrotic syndrome less likely as patient does not have significant proteinuria Bumex IV Follow-up on echo 4. Coronary disease Patient is status post stenting in May Hold home aspirin and Plavix given GI bleed Cardiology consultation obtained 5. Hypertension Hydralazine PRN 6. Morbid obesity Lifestyle changes Prophylaxis: SCDs, famotidine drip Result Diagram: 10/31/18 1425 10/31/18 0819 Results 24hrs Laboratory Tests Test 10/30/18 20:36 10/30/18 23:31 10/31/18 00:34 10/31/18 03:10 White Blood Count 14.4 H Red Blood Count 1.94 L Hemoglobin 5.6 *L Hematocrit 17.1 L Mean Corpuscular 88.1 Volume Mean Corpuscular 28.9 L Hemoglobin Mean Corpuscular 32.7 Hemoglobin Concent Red Cell 16.6 H Distribution Width Platelet Count 221 Mean Platelet Volume 8.9 Immature 2.400 H Granulocytes % Neutrophils % Segmented 79 H Neutrophils % (Manual) Band Neutrophils % 3 (Manual) Lymphocytes % Lymphocytes % 14 L (Manual) Monocytes % Monocytes % (Manual) 4 Eosinophils % Basophils % Nucleated Red Blood 0.0 Cells % Immature 0.340 H Granulocytes # Neutrophils # Neutrophils # 11.4 H (Manual) Band Neutrophils # 0.4 Lymphocytes (Manual) 2.0 Lymphocytes # Monocytes # Monocytes # (Manual) 0.5 Eosinophils # Basophils # Nucleated Red Blood Cells # Platelet Estimate NORMAL Anisocytosis 2+ Microcytosis 2+ Sodium Level 137 Potassium Level 5.5 H Chloride Level 110 Carbon Dioxide Level 22 Anion Gap 5 Blood Urea Nitrogen 55 H Creatinine 2.04 H Est Glomerular 34 L Filtrat Rate mL/min Glucose Level 153 Calcium Level 6.7 L Total Bilirubin 0.2 Direct Bilirubin 0.00 Indirect Bilirubin 0.2 Aspartate Amino 19 Transf (AST/SGOT) Alanine 31 Aminotransferase (AL T/SGPT) Alkaline Phosphatase 52 Troponin I 0.037 B-Type Natriuretic 3220 H Peptide Total Protein 4.0 L Albumin 2.1 L Globulin 1.90 Albumin/Globulin 1.10 Ratio Bedside Glucose 174 248 H Urine Color YELLOW Urine Clarity CLOUDY A Urine pH 5.0 Urine Specific 1.013 [place] Urine Ketones NEGATIVE Urine Nitrite NEGATIVE Urine Bilirubin NEGATIVE Urine Urobilinogen NEGATIVE Urine Leukocyte NEGATIVE Esterase Urine Microscopic 9 H RBC Urine Microscopic 3 WBC Urine Squamous FEW Epithelial Cells Urine Transitional FEW A Epithelial Cells Urine Bacteria FEW A Urine Mucus FEW A Urine Hemoglobin 1+ H Urine Random 96.11 Creatinine Urine Random Sodium 26 L Urine 1.80 Protein/Creatinine Ratio Urine Glucose 1+ H Urine Total Protein 173.0 H Test 10/31/18 05:25 10/31/18 08:19 10/31/18 08:20 10/31/18 08:26 Bedside Glucose 145 107 White Blood Count 19.0 #H Red Blood Count 2.17 L Hemoglobin 6.3 *L Hematocrit 19.1 L Mean Corpuscular 88.0 Volume Mean Corpuscular 29.0 Hemoglobin Mean Corpuscular 33.0 Hemoglobin Concent Red Cell 16.1 H Distribution Width Platelet Count 164 # Mean Platelet Volume 9.5 Immature 2.300 H Granulocytes % Neutrophils % 60.9 Lymphocytes % 26.3 Monocytes % 10.1 Eosinophils % 0.3 Basophils % 0.1 Nucleated Red Blood 0.2 H Cells % Immature 0.430 H Granulocytes # Neutrophils # 11.6 H Lymphocytes # 5.0 H Monocytes # 1.9 H Eosinophils # 0.1 Basophils # 0.0 Nucleated Red Blood 0.0 Cells # Prothrombin Time 16.5 H Prothrombin Time 1.3 Ratio INR International 1.32 Normalized Ratio Activated 27.1 Partial Thromboplast Time Sodium Level 140 Potassium Level 5.9 H Chloride Level 110 Carbon Dioxide Level 21 Anion Gap 9 Blood Urea Nitrogen 65 H Creatinine 2.51 H Est Glomerular 27 L Filtrat Rate mL/min Glucose Level 93 # Hemoglobin A1c 5.7 Calcium Level 6.3 L Phosphorus Level 5.9 H Ferritin 1270.0 H Hepatitis B Surface NEGATIVE Antibody Magnesium Level 2.1 Iron Level 129 Total Iron Binding 168 L Capacity Percent Iron 77 H Saturation Triglycerides Level 338 H Cholesterol Level 174 LDL Cholesterol, 72 Calculated HDL Cholesterol 34 Cholesterol/HDL 5.1 Ratio Thyroid Stimulating 4.950 H Hormone (TSH) Complement C3 61 L Complement C4 23 Hepatitis A Antibody POSITIVE H Total Hepatitis B Surface NEGATIVE Antigen Hepatitis B Core NEGATIVE Total Antibody Hepatitis C Antibody NEGATIVE Test 10/31/18 09:00 10/31/18 11:35 10/31/18 12:16 10/31/18 13:04 Urine Color YELLOW Urine Clarity CLOUDY A Urine pH 5.0 Urine Specific 1.014 [place] Urine Ketones NEGATIVE Urine Nitrite NEGATIVE Urine Bilirubin NEGATIVE Urine Urobilinogen NEGATIVE Urine Leukocyte TRACE A Esterase Urine Microscopic 4 RBC Urine Microscopic 11 H WBC Urine Squamous FEW Epithelial Cells Urine Amorphous FEW A Crystals Urine Bacteria FEW A Urine Mucus FEW A Urine Hemoglobin 1+ H Urine Random 154.52 Creatinine Urine Random Sodium < 13 L Urine Glucose NEGATIVE Urine Total Protein 193.0 H Bedside Glucose 114 138 89 Test 10/31/18 14:25 White Blood Count 16.0 H Red Blood Count 2.72 #L Hemoglobin 8.1 #L Hematocrit 23.7 #L Mean Corpuscular 87.1 Volume Mean Corpuscular 29.8 Hemoglobin Mean Corpuscular 34.2 Hemoglobin Concent Red Cell 16.3 H Distribution Width Platelet Count 116 #L Mean Platelet Volume 10.5 H Immature 2.100 H Granulocytes % Neutrophils % 61.2 Lymphocytes % 27.9 Monocytes % 8.2 Eosinophils % 0.5 Basophils % 0.1 Nucleated Red Blood 0.2 H Cells % Immature 0.340 H Granulocytes # Neutrophils # 9.8 H Lymphocytes # 4.5 H Monocytes # 1.3 H Eosinophils # 0.1 Basophils # 0.0 Nucleated Red Blood 0.0 Cells # Subjective 24 Hr Interval Summary Constitutional: no complaints Exam/Review of Systems Exam Vitals Vital Signs Date Temp Pulse Resp B/P (MAP) Pulse Ox O2 O2 Flow FiO2 Time Delivery Rate 10/31/18 101 12:00 10/31/18 15 98 21 11:09 10/31/18 162/83 Room Air 07:00 (109) 10/31/18 97.7 05:05 10/30/18 4.0 23:37 Intake and Output 10/30/18 10/30/18 10/31/18 1515:00 23:00 07:00 IntakeIntake Total 350 ml OutputOutput Total 35 ml BalanceBalance 315 ml Constitutional: alert, oriented Respiratory: clear to auscultation Cardiovascular: regular rate and rhythm Gastrointestinal: soft; No distended Musculoskeletal: nl extremities to inspection Results Results 24hrs Laboratory Tests Test 10/30/18 20:36 10/30/18 23:31 10/31/18 00:34 10/31/18 03:10 White Blood Count 14.4 H Red Blood Count 1.94 L Hemoglobin 5.6 *L Hematocrit 17.1 L Mean Corpuscular 88.1 Volume Mean Corpuscular 28.9 L Hemoglobin Mean Corpuscular 32.7 Hemoglobin Concent Red Cell 16.6 H Distribution Width Platelet Count 221 Mean Platelet Volume 8.9 Immature 2.400 H Granulocytes % Neutrophils % Segmented 79 H Neutrophils % (Manual) Band Neutrophils % 3 (Manual) Lymphocytes % Lymphocytes % 14 L (Manual) Monocytes % Monocytes % (Manual) 4 Eosinophils % Basophils % Nucleated Red Blood 0.0 Cells % Immature 0.340 H Granulocytes # Neutrophils # Neutrophils # 11.4 H (Manual) Band Neutrophils # 0.4 Lymphocytes (Manual) 2.0 Lymphocytes # Monocytes # Monocytes # (Manual) 0.5 Eosinophils # Basophils # Nucleated Red Blood Cells # Platelet Estimate NORMAL Anisocytosis 2+ Microcytosis 2+ Sodium Level 137 Potassium Level 5.5 H Chloride Level 110 Carbon Dioxide Level 22 Anion Gap 5 Blood Urea Nitrogen 55 H Creatinine 2.04 H Est Glomerular 34 L Filtrat Rate mL/min Glucose Level 153 Calcium Level 6.7 L Total Bilirubin 0.2 Direct Bilirubin 0.00 Indirect Bilirubin 0.2 Aspartate Amino 19 Transf (AST/SGOT) Alanine 31 Aminotransferase (AL T/SGPT) Alkaline Phosphatase 52 Troponin I 0.037 B-Type Natriuretic 3220 H Peptide Total Protein 4.0 L Albumin 2.1 L Globulin 1.90 Albumin/Globulin 1.10 Ratio Bedside Glucose 174 248 H Urine Color YELLOW Urine Clarity CLOUDY A Urine pH 5.0 Urine Specific 1.013 [place] Urine Ketones NEGATIVE Urine Nitrite NEGATIVE Urine Bilirubin NEGATIVE Urine Urobilinogen NEGATIVE Urine Leukocyte NEGATIVE Esterase Urine Microscopic 9 H RBC Urine Microscopic 3 WBC Urine Squamous FEW Epithelial Cells Urine Transitional FEW A Epithelial Cells Urine Bacteria FEW A Urine Mucus FEW A Urine Hemoglobin 1+ H Urine Random 96.11 Creatinine Urine Random Sodium 26 L Urine 1.80 Protein/Creatinine Ratio Urine Glucose 1+ H Urine Total Protein 173.0 H Test 10/31/18 05:25 10/31/18 08:19 10/31/18 08:20 10/31/18 08:26 Bedside Glucose 145 107 White Blood Count 19.0 #H Red Blood Count 2.17 L Hemoglobin 6.3 *L Hematocrit 19.1 L Mean Corpuscular 88.0 Volume Mean Corpuscular 29.0 Hemoglobin Mean Corpuscular 33.0 Hemoglobin Concent Red Cell 16.1 H Distribution Width Platelet Count 164 # Mean Platelet Volume 9.5 Immature 2.300 H Granulocytes % Neutrophils % 60.9 Lymphocytes % 26.3 Monocytes % 10.1 Eosinophils % 0.3 Basophils % 0.1 Nucleated Red Blood 0.2 H Cells % Immature 0.430 H Granulocytes # Neutrophils # 11.6 H Lymphocytes # 5.0 H Monocytes # 1.9 H Eosinophils # 0.1 Basophils # 0.0 Nucleated Red Blood 0.0 Cells # Prothrombin Time 16.5 H Prothrombin Time 1.3 Ratio INR International 1.32 Normalized Ratio Activated 27.1 Partial Thromboplast Time Sodium Level 140 Potassium Level 5.9 H Chloride Level 110 Carbon Dioxide Level 21 Anion Gap 9 Blood Urea Nitrogen 65 H Creatinine 2.51 H Est Glomerular 27 L Filtrat Rate mL/min Glucose Level 93 # Hemoglobin A1c 5.7 Calcium Level 6.3 L Phosphorus Level 5.9 H Ferritin 1270.0 H Hepatitis B Surface NEGATIVE Antibody Magnesium Level 2.1 Iron Level 129 Total Iron Binding 168 L Capacity Percent Iron 77 H Saturation Triglycerides Level 338 H Cholesterol Level 174 LDL Cholesterol, 72 Calculated HDL Cholesterol 34 Cholesterol/HDL 5.1 Ratio Thyroid Stimulating 4.950 H Hormone (TSH) Complement C3 61 L Complement C4 23 Hepatitis A Antibody POSITIVE H Total Hepatitis B Surface NEGATIVE Antigen Hepatitis B Core NEGATIVE Total Antibody Hepatitis C Antibody NEGATIVE Test 10/31/18 09:00 10/31/18 11:35 10/31/18 12:16 10/31/18 13:04 Urine Color YELLOW Urine Clarity CLOUDY A Urine pH 5.0 Urine Specific 1.014 [place] Urine Ketones NEGATIVE Urine Nitrite NEGATIVE Urine Bilirubin NEGATIVE Urine Urobilinogen NEGATIVE Urine Leukocyte TRACE A Esterase Urine Microscopic 4 RBC Urine Microscopic 11 H WBC Urine Squamous FEW Epithelial Cells Urine Amorphous FEW A Crystals Urine Bacteria FEW A Urine Mucus FEW A Urine Hemoglobin 1+ H Urine Random 154.52 Creatinine Urine Random Sodium < 13 L Urine Glucose NEGATIVE Urine Total Protein 193.0 H Bedside Glucose 114 138 89 Test 10/31/18 14:25 White Blood Count 16.0 H Red Blood Count 2.72 #L Hemoglobin 8.1 #L Hematocrit 23.7 #L Mean Corpuscular 87.1 Volume Mean Corpuscular 29.8 Hemoglobin Mean Corpuscular 34.2 Hemoglobin Concent Red Cell 16.3 H Distribution Width Platelet Count 116 #L Mean Platelet Volume 10.5 H Immature 2.100 H Granulocytes % Neutrophils % 61.2 Lymphocytes % 27.9 Monocytes % 8.2 Eosinophils % 0.5 Basophils % 0.1 Nucleated Red Blood 0.2 H Cells % Immature 0.340 H Granulocytes # Neutrophils # 9.8 H Lymphocytes # 4.5 H Monocytes # 1.3 H Eosinophils # 0.1 Basophils # 0.0 Nucleated Red Blood 0.0 Cells # Medications Medication Current Medications IV Flush (NS 3 ml) 3 ml PER PROTOCOL IV ; Start 10/30/18 at 22:30 Ondansetron HCl (Zofran Tab) 4 mg Q6H PRN PO NAUSEA/VOMITING; Start 10/30/18 at 22:30 Ondansetron HCl (Zofran Inj) 4 mg Q6H PRN IV NAUSEA/VOMITING; Start 10/30/18 at 22:30 Acetaminophen (Tylenol Tab) 650 mg Q6H PRN PO .PAIN 1-3 OR TEMP; Start 10/30/18 at 22:30 Acetaminophen/ Hydrocodone Bitart (Branch (5/325)) 1 tab Q6H PRN PO .PAIN 4-6; Start 10/30/18 at 22:30 Bisacodyl (Dulcolax) 5 mg DAILY PRN PO .CONSTIPATION; Start 10/30/18 at 22:30 Octreotide Acetate 1 mg/ Dextrose 100 ml @ 5 mls/hr Q20H IV Last administered on 10/31/18at 05:39; Admin Dose 5 MLS/HR; Start 10/31/18 at 04:00 Famotidine 40 mg/ Sodium Chloride 254 ml @ 11 mls/hr Q23H6M IV Last administered on 10/31/18at 05:39; Admin Dose 11 MLS/HR; Start 10/31/18 at 04:00 Albumin Human 100 ml @ 100 mls/hr Q8H IV Last administered on 10/31/18 13:03; Admin Dose 100 MLS/HR; Start 10/31/18 at 04:00; Stop 10/31/18 at 20:59 Metoprolol Tartrate (Lopressor) 2.5 mg Q6H PRN IV for systolic above 170 Last administered on 10/31/18 13:14; Admin Dose 2.5 MG; Start 10/31/18 at 04:00 Insulin Aspart (Novolog Insulin Pen) NOVOLOG *MILD* ALGORI... Q4 SC Last administered on 10/31/18 05:28; Admin Dose 1 UNIT; Start 10/31/18 at 05:00 Dextrose (D50w Syringe) ONCE PRN IV DECREASED GLUCOSE Last administered on 10/31/18 11:36; Admin Dose 50 ML; Start 10/31/18 at 10:30; Stop 11/01/18 at 10:29 Bumetanide 6 mg/ Dextrose 60 ml @ 10 mls/hr Q6H ONCE IV Last administered on 10/31/18 13:05; Admin Dose 10 MLS/HR; Start 10/31/18 at 12:00; Stop 10/31/18 at 17:59 LENARD PIÑA Oct 31, 2018 15:01
--- NOTE | 2018-10-31 16:05 | RADRPT ---
Echocardiogram Report Patient Name: PEDRO HERNÁNDEZPatient ID: [id number] : 1960 (58y 5m)Study Date: 10/31/2018 7:27:42 AM Gender: MAccession #: [id number] Tech: Chris Mccarthy RDCS Location: 119 Ref.Physician: BONNIE LEACH Height(Cm): BSA: Weight(Kg): Quality: AdequateOrder Physician: BONNIE LEACH Account #: Procedures: Echocardiographic Report: Transthoracic echocardiogram with complete 2D, M-Mode, and doppler examination. Indications: Elevated bnp. Measurements: 2D/M Mode Doppler Measurement Value Normal Range Measurement Value Normal Range LVIDd 2D 4.1 [ 4.2 - 5.8 ] cm AV Peak Adrian 1.4 [ 100.0 - 170.0 ] cm/sec LVIDs 2D 2.9 [ 2.5 - 4.0 ] cm AV Peak PG 8.0 [ 2.0 - 9.0 ] mmHg LVPWd 2D 1.5 [ 0.6 - 1.0 ] cm LVOT Peak Adrian 1.0 [ 70.0 - 110.0 ] cm/sec IVSd 2D 1.4 [ 0.6 - 1.0 ] cm LVOT Peak PG 4.0 [ 2.0 - 6.0 ] mmHg AoR Diam 2D 3.6 [ 2.6 - 3.4 ] cm MV E Peak Adrian 0.8 [ 60.0 - 130.0 ] cm/sec EDV 2D 74.2 [ 62.0 - 150.0 ] ml MV A Peak Adrian 1.0 [ 100.0 - 120.0 ] cm/sec ESV 2D 33.0 [ 21.0 - 61.0 ] ml MV E/A 0.8 [ 0.8 - 1.5 ] ratio EF 2D 55.5 [ 52.0 - 72.0 ] percent MV Decel Time 155 [ 104 - 258 ] msec LA Dimen 2D 2.6 [ 3.0 - 4.0 ] cm Lat E` Adrian 0.1 [ 10.0 - 15.0 ] cm/sec Lateral E/E` 11.2 [ 1.0 - 2.0 ] ratio MV E/A 0.8 [ 0.8 - 1.5 ] ratio Findings: Left Ventricle: Overall, normal left ventricular systolic function. Not all segments visualized. Normal left ventricular cavity size. Moderate concentric left ventricular hypertrophy. Ejection fraction is visually estimated at 55 %. Tissue Doppler/Mitral Doppler indices are consistent with impaired relaxation (Stage I diastolic dysfunction). Right Ventricle: Normal right ventricular size. Normal right ventricular systolic function. Left Atrium: The left atrium is normal in size. Right Atrium: The right atrium is normal in size. Mitral Valve: Normal appearance and function of the mitral valve with trace physiologic regurgitation. Aortic Valve: Normal appearance of the aortic valve. No significant aortic stenosis or insufficiency. Tricuspid Valve: Normal appearance and function of the tricuspid valve with trace physiologic regurgitation. Pulmonic Valve: Normal pulmonic valve appearance. Pericardium: Normal pericardium with no significant pericardial effusion. Aorta: Normal aortic root. IVC: Normal size and normal respiratory collapse consistent with normal right atrial pressure. Conclusions: Overall, normal left ventricular systolic function. Not all segments visualized. Normal left ventricular cavity size. Moderate concentric left ventricular hypertrophy. Ejection fraction is visually estimated at 55 %. Tissue Doppler/Mitral Doppler indices are consistent with impaired relaxation (Stage I diastolic dysfunction). Normal right ventricular size. Normal right ventricular systolic function. The left atrium is normal in size. The right atrium is normal in size. No significant valvular stenosis or regurgitation seen. Normal pericardium with no significant pericardial effusion. Electronically Signed By: Anirudh Downey 2018-10-31 16:04:02 PDT
[2018-10-31] MEDS: BUMETANIDE 25 MG in DEXTROSE 5% 150 ML IV SCH (18:20)
[2018-10-31] MEDS ORDERED: ATORVASTATIN 40 MG TAB PO SCH (21:00)
[2018-10-31] MEDS ORDERED: NITROGLYCERIN (SL) 0.4 MG TAB SL ONE (21:00)
[2018-10-31] MEDS ORDERED: hydrALAzine 20 MG INJ IV ONE (22:00)
--- NOTE | 2018-10-31 23:00 | CONS ---
DATE OF ADMISSION: 10/30/2018 DATE OF CONSULTATION: Dear Dr. Leach: Thank you for asking me to see Mr. Jha in GI consultation. HISTORY OF PRESENT ILLNESS: The patient, as you know, is a 58-year-old Citizen Of [place] gentleman who was br ought to the hospital because of history of severe ankle edema which has been getting worse. He also gives a history of vomiting coffee-ground material prior to the admission, and he had several dark b loody stools prior to the admission. Hemoglobin was 5.6 on admission. He got 2 units of packed cell s transfusion. He has history of possible cirrhosis, history of chronic nephrotic syndrome with ankl e edema, history of coronary artery disease with stent placement in May, got high BUN and creatin ine, electrolyte imbalance, hypoalbuminemia, and hypertension. He has no history of vomiting blood in the past, for several years or so, although had a colonoscopy and EGD in the past. MEDICATIONS: Prior to this admission includes: 1. Zofran. 2. Tylenol. 3. Hydrocodone. 4. Dulcolax. 5. Famotidine 6. Octreotide drip in the ICU. 7. Lopressor. 8. NovoLog. PAST SURGICAL HISTORY: Includes coronary stent placement. PHYSICAL EXAMINATION: GENERAL: The patient is a 58-year-old Citizen [place] gentleman who, at this time, is mildly obese. He is alert. He is in ICU. VITAL SIGNS: Blood pressure 162/83. Pulse is 98%. CARDIOVASCULAR: Normal heart sounds. RESPIRATORY: Normal breath sounds. ABDOMEN: Shows soft abdomen with no palpable masses, no tenderness, and no distention. LABORATORY WORKUP: On admission, hemoglobin 5.6, subsequently 6.3 at 8:00 in the morning. WBC is 19 ,000, platelet 164,000. Potassium 5.9 early this morning. The liver panel, alkaline phosphatase is 52, ALT 31, AST 19. CT of the abdomen shows some small heterogenous liver consistent with cirrhosis, cyst noted in the ri ght kidney, and diverticulosis noted in the colon. CLINICAL IMPRESSION: 1. From the GI standpoint, he has history of hematemesis, rule out esophageal varices and peptic ulc er disease. He also has bloody stools, rule out colorectal neoplasm, arteriovenous malformation. He does have diverticulosis. 2. Coronary artery stent placement in the past. 3. Chronic kidney disease. 4. Electrolyte imbalance. PLAN: Recommend to continue Pepcid IV and octreotide. Recommend upper endoscopy, and when he is sta ble, colonoscopy as well. Once again, doctor, thank you for this consultation. Sincerely, Dictated By: DAYNA GOODEN MD NC/NTS Conf#: [id number] DID#: [id number] CC: LENARD PIÑA MD; BONNIE LEACH MD;*EndCC*
[2018-11-01] VITALS (73 sets, daily range): BP systolic 123–187; BP diastolic 59–139; PULSE 64–122; RESP 0–34
[2018-11-01] MEDS: OCTREOTIDE 1 MG in DEXTROSE 5% 95 ML IV SCH ×2 (00:16→17:14)
[2018-11-01] MEDS: INSULIN ASPART [NOVOLOG] 3 ML PEN SC SCH ×6 (00:29→21:00)
[2018-11-01] MEDS ORDERED: ACCU-CHEK XX SCH (02:00)
[2018-11-01] MEDS: PANTOPRAZOLE IV 80 MG in SOD CHLORIDE 0.9% 100 ML IVPB SCH ×3 (03:06→22:55)
[2018-11-01] MEDS ORDERED: METOLAZONE 5 MG TAB PO ONE (08:30)
[2018-11-01] MEDS ORDERED: BUMETANIDE 6 MG in DEXTROSE 5% 36 ML IV ONE (09:00)
--- NOTE | 2018-11-01 10:25 | PN ---
DATE: 11/01/2018 SUBJECTIVE: The patient remains stable, no acute events overnight. The patient had excellent urinar y output after being initiated on Bumex drip. No other events noted. OBJECTIVE: VITAL SIGNS: Blood pressure is 146/84, respirations 27, pulse 87, temperature 98.6. HEENT: Head is normocephalic. NECK: Supple. HEART: Regular rate. LUNGS: Show diminished breath sounds at the base. ABDOMEN: Soft, nontender to palpation without rebound or guarding. EXTREMITIES: Negative for clubbing, cyanosis. Diffuse anasarca. DERMATOLOGIC: No rashes. MUSCULOSKELETAL: No joint effusion. NEUROLOGIC: No change in exam. MEDICATIONS: Reviewed. LABORATORY DATA: Reviewed. IMAGING STUDIES: Reviewed. MICROBIOLOGY: Reviewed. ASSESSMENT AND PLAN: 1. Nonoliguric acute kidney injury with unknown previous baseline creatinine. Etiology of acute kid lupe injury is likely multifactorial secondary to hemodynamics, acute tubular necrosis. Possibility o f a cardiorenal syndrome or a primary glomerulopathy are considerations. The patient remains in inju ry phase of acute kidney injury as creatinine continues to decline. Plan at this point is to continu e current diuretic regimen. A serological workup was initiated. The patient does have a mildly low C3 level. Further serologies are pending. At this point, we will continue current treatment plan, s upportive care, renally dose all medications. We will also attempt to contact the patient's primary manager skilled, Dr. Rendon to ascertain underlying baseline renal function. 2. Hyperkalemia secondary to acute kidney injury, improved. Continue to monitor. 3. Volume overload, etiology may be multifactorial secondary to acute kidney injury, diastolic heart failure. The patient is grossly volume overloaded. Continue current diuretic regimen, monitor clos efraín. 4. Mineral bone disorder, monitor calcium and phosphorus levels. 5. Possible cirrhosis, per imaging studies the patient has evidence of cirrhotic liver. Continue to monitor. Continue medical management. 6. Acute gastrointestinal bleed. Etiology is unclear. The patient is pending possible EGD. Contin ue octreotide and proton pump inhibitor. 7. Hypertension. Continue current blood pressure regimen. 8. History of coronary artery disease, status post PCI. Continue medical management. Followup with cardiology. 9. Systemic inflammatory response syndrome. Continue to monitor. Please note I spent over 30 minutes of critical care time with this patient. Dictated By: ARDEN BECKHAM DO NR/NTS Conf#: [id number] DID#: [id number] CC: DAYNA GOODEN MD; LENARD PIÑA MD; BONNIE LEACH MD;*EndCC*
[2018-11-01] MEDS: hydrALAzine 20 MG INJ IV PRN (11:05)
[2018-11-01] MEDS: METOPROLOL 5 MG INJ IV SCH ×3 (12:57→21:28)
--- NOTE | 2018-11-01 14:42 | PN ---
Date/Time of Note Date/Time of Note DATE: 11/01/18 TIME: 14:38 Assessment/Plan VTE Prophylaxis Risk score (from Nsg)>0 risk: 4 Pharmacological prophylaxis: NA/contraindicated Pharm contraindication: bleeding Assessment/Plan Hospital Course 1. Anemia secondary to active GI bleed Patient with a history of gastritis per previous endoscopy, patient with melena and upper GI bleed on admission as well as anemia Status post blood transfusion Continue famotidine drip as well as octreotide drip. GI consultation with Dr. Whitaker appreciated CT abdomen does show cirrhosis and possible colitis 2. Acute kidney injury on possible CKD Nephrology consultation appreciated Patient with nephrotic syndrome at baseline, on steroid therapy with improvement 3. Anasarca secondary to cirrhosis and/or heart failure Patient does have a history of nephrotic syndrome Bumex IV Follow-up on echo 4. Coronary disease Patient is status post stenting in May Hold home aspirin and Plavix given GI bleed Cardiology consultation appreciated 5. Non-STEMI secondary to demand Troponin is rising Cardiology consultation appreciated, etiology recommendation is for transfer to patient's primary hospital [facility] as [employer] is currently down 5. Hypertension Hydralazine PRN 6. Morbid obesity Lifestyle changes Prophylaxis: SCDs, famotidine drip DC planning: Attempt transfer to [facility] Result Diagram: 11/01/18 0524 11/01/18 0511 Results 24hrs Laboratory Tests Test 10/31/18 17:08 10/31/18 17:11 10/31/18 20:27 10/31/18 21:00 Bedside Glucose 121 114 Potassium Level 5.2 H Creatine Kinase 54 Creatine Kinase 4.5 Index Creatinine Kinase 2.42 H MB (Mass) Troponin I 0.077 Test 10/31/18 23:09 11/01/18 00:28 11/01/18 03:00 11/01/18 04:48 Hemoglobin 7.6 L Hematocrit 22.5 L Bedside Glucose 129 129 Creatinine Kinase 3.55 H MB (Mass) Troponin I 0.316 *H Test 11/01/18 05:11 11/01/18 05:11 11/01/18 05:24 11/01/18 08:37 Sodium Level 139 Potassium Level 4.8 Chloride Level 105 Carbon Dioxide 26 Level Anion Gap 8 Blood Urea 67 H Nitrogen Creatinine 2.72 H Est Glomerular 24 L Filtrat Rate mL/min Glucose Level 107 Calcium Level 7.4 L Lab Scanned BLOOD TRANSFUSIO Report N White Blood Count 13.3 H Red Blood Count 2.73 L Hemoglobin 8.1 L Hematocrit 24.1 L Mean Corpuscular 88.3 Volume Mean Corpuscular 29.7 Hemoglobin Mean Corpuscular 33.6 Hemoglobin Concen t Red Cell 16.2 H Distribution Width Platelet Count 100 L Mean Platelet 9.5 Volume Immature 1.100 H Granulocytes % Neutrophils % 77.9 H Lymphocytes % 12.1 L Monocytes % 8.0 Eosinophils % 0.8 Basophils % 0.1 Nucleated Red 0.0 Blood Cells % Immature 0.150 H Granulocytes # Neutrophils # 10.4 H Lymphocytes # 1.6 Monocytes # 1.1 H Eosinophils # 0.1 Basophils # 0.0 Nucleated Red 0.0 Blood Cells # Creatine Kinase 102 Creatine Kinase 11.5 Index Creatinine Kinase 11.70 H MB (Mass) Troponin I 5.580 *H Test 11/01/18 09:33 11/01/18 13:04 Bedside Glucose 139 143 Subjective 24 Hr Interval Summary Constitutional: no complaints Exam/Review of Systems Exam Vitals Vital Signs Date Temp Pulse Resp B/P (MAP) Pulse Ox O2 O2 Flow FiO2 Time Delivery Rate 11/01/18 92 20 160/86 98 14:00 (110) 11/01/18 99.8 12:47 11/01/18 Nasal 10:00 Cannula 11/01/18 3.0 07:00 10/31/18 21 11:09 Intake and Output 10/31/18 10/31/18 11/01/18 1515:00 23:00 07:00 IntakeIntake Total 948 ml 464 ml 235 ml OutputOutput Total 1450 ml 1950 ml BalanceBalance 948 ml -986 ml -1715 ml Constitutional: alert, oriented Respiratory: clear to auscultation Cardiovascular: regular rate and rhythm Gastrointestinal: soft; No distended Musculoskeletal: nl extremities to inspection Results Results 24hrs Laboratory Tests Test 10/31/18 17:08 10/31/18 17:11 10/31/18 20:27 10/31/18 21:00 Bedside Glucose 121 114 Potassium Level 5.2 H Creatine Kinase 54 Creatine Kinase 4.5 Index Creatinine Kinase 2.42 H MB (Mass) Troponin I 0.077 Test 10/31/18 23:09 11/01/18 00:28 11/01/18 03:00 11/01/18 04:48 Hemoglobin 7.6 L Hematocrit 22.5 L Bedside Glucose 129 129 Creatinine Kinase 3.55 H MB (Mass) Troponin I 0.316 *H Test 11/01/18 05:11 11/01/18 05:11 11/01/18 05:24 11/01/18 08:37 Sodium Level 139 Potassium Level 4.8 Chloride Level 105 Carbon Dioxide 26 Level Anion Gap 8 Blood Urea 67 H Nitrogen Creatinine 2.72 H Est Glomerular 24 L Filtrat Rate mL/min Glucose Level 107 Calcium Level 7.4 L Lab Scanned BLOOD TRANSFUSIO Report N White Blood Count 13.3 H Red Blood Count 2.73 L Hemoglobin 8.1 L Hematocrit 24.1 L Mean Corpuscular 88.3 Volume Mean Corpuscular 29.7 Hemoglobin Mean Corpuscular 33.6 Hemoglobin Concen t Red Cell 16.2 H Distribution Width Platelet Count 100 L Mean Platelet 9.5 Volume Immature 1.100 H Granulocytes % Neutrophils % 77.9 H Lymphocytes % 12.1 L Monocytes % 8.0 Eosinophils % 0.8 Basophils % 0.1 Nucleated Red 0.0 Blood Cells % Immature 0.150 H Granulocytes # Neutrophils # 10.4 H Lymphocytes # 1.6 Monocytes # 1.1 H Eosinophils # 0.1 Basophils # 0.0 Nucleated Red 0.0 Blood Cells # Creatine Kinase 102 Creatine Kinase 11.5 Index Creatinine Kinase 11.70 H MB (Mass) Troponin I 5.580 *H Test 11/01/18 09:33 11/01/18 13:04 Bedside Glucose 139 143 Medications Medication Current Medications IV Flush (NS 3 ml) 3 ml PER PROTOCOL IV ; Start 10/30/18 at 22:30 Ondansetron HCl (Zofran Tab) 4 mg Q6H PRN PO NAUSEA/VOMITING; Start 10/30/18 at 22:30 Ondansetron HCl (Zofran Inj) 4 mg Q6H PRN IV NAUSEA/VOMITING Last administered on 10/31/18at 20:56; Admin Dose 4 MG; Start 10/30/18 at 22:30 Acetaminophen (Tylenol Tab) 650 mg Q6H PRN PO .PAIN 1-3 OR TEMP Last administered on 11/01/18at 12:47; Admin Dose 650 MG; Start 10/30/18 at 22:30 Acetaminophen/ Hydrocodone Bitart ([place] (5/325)) 1 tab Q6H PRN PO .PAIN 4-6; Start 10/30/18 at 22:30 Bisacodyl (Dulcolax) 5 mg DAILY PRN PO .CONSTIPATION; Start 10/30/18 at 22:30 Octreotide Acetate 1 mg/ Dextrose 100 ml @ 5 mls/hr Q20H IV Last administered on 11/01/18at 00:16; Admin Dose 5 MLS/HR; Start 10/31/18 at 04:00 Metoprolol Tartrate (Lopressor) 2.5 mg Q6H PRN IV for systolic above 170 Last administered on 10/31/18at 21:43; Admin Dose 2.5 MG; Start 10/31/18 at 04:00 Insulin Aspart (Novolog Insulin Pen) NOVOLOG *MILD* ALGORI... Q4 SC Last administered on 11/01/18at 13:13; Admin Dose 1 UNIT; Start 10/31/18 at 05:00 Pantoprazole 80 mg/Sodium Chloride 100 ml @ 10 mls/hr Q10H IVPB Last administered on 11/01/18at 12:55; Admin Dose 10 MLS/HR; Start 11/01/18 at 02:00 IV Flush (NS 10 ml) 10 ml PRN PRN IV IV PROTOCOL; Start 10/31/18 at 17:00 Bumetanide 25 mg/ Dextrose 250 ml @ 10 mls/hr Q24H IV Last administered on 10/31/18at 18:20; Admin Dose 10 MLS/HR; Start 10/31/18 at 18:00 Hydralazine HCl (Apresoline) 10 mg Q4H PRN IV systolic > 170 Last administered on 11/01/18at 11:05; Admin Dose 10 MG; Start 10/31/18 at 23:00 Hydralazine HCl (Apresoline) 20 mg Q6H PRN IV systolic > 190 ; Start 10/31/18 at 23:00 Bumetanide 6 mg/ Dextrose 60 ml @ 10 mls/hr Q6H ONCE IV ; Start 11/01/18 at 09:00; Stop 11/01/18 at 14:59 Prednisone (Prednisone) 40 mg DAILY PO ; Start 11/02/18 at 09:00 Atorvastatin Calcium (Lipitor) 80 mg HS PO ; Start 11/01/18 at 21:00 Metoprolol Tartrate (Lopressor) 2.5 mg Q4H IV Last administered on 11/01/18at 12:57; Admin Dose 2.5 MG; Start 11/01/18 at 13:00 Carvedilol (Coreg) 12.5 mg BID PO ; Start 11/01/18 at 21:00 Labetalol HCl (Labetalol) 10 mg Q4H PRN IV sbp>160; Start 11/01/18 at 15:00 LENARD PIÑA Nov 01, 2018 14:42
--- NOTE | 2018-11-01 14:43 | CONS ---
Assessment/Plan Assessment/Plan Hospital Course (Demo Recall) Non-ST elevation myocardial infarction Left ventricular ejection fraction 55% Acute kidney injury Volume overload Acute blood loss anemia CAD with history of PCI April 2018 Hypertension Dyslipidemia Tobacco use Patient with chest burning yesterday evening, troponins this morning at 5. ECG with no significant ischemic abnormalities Hemoglobin has improved and remained stable this on the lower side, given the setting of myocardial infarction, would request an additional unit of packed red blood cells Volume status has improved after IV Bumex. I did speak to our nephrology colleague as well as patient's outpatient market development specialist. It appears his kidney function worsened after his angiogram in April 2018. Also appears to be an element of poor follow-up and noncompliant Patient with myocardial infarction, severe anemia likely secondary to GI bleed as well as acute kidney injury. Given his multiple pathologies and the concern if cardiac catheterization is necessary, would not be able to be performed at our facility given [employer] is currently nonfunctional. I did discuss this with the patient's market development specialist who is making arrangements for transfer to patient's primary hospital at [facility] in [place]. Patient did have his last coronary angiogram there April 2018. I did speak to accepting hospitalist at [facility] Dr. Amberly Rodrigues who is accepting the patient. In the interim, increase patient's statin dose, increased dose of carvedilol, add IV Lopressor for heart rate control. Check serial troponins, follow hemoglobin closely Greater than 65 minutes of care time taken in the care of this patient including multiple calls to patient's market development specialist, accepting physician at [facility], our physicians, nursing staff Consultation Date/Type/Reason Admit Date/Time Oct 30, 2018 at 22:13 Initial Consult Date Type of Consult Cardiology Date/Time of Note DATE: 11/01/18 TIME: 14:34 24 HR Interval Summary Free Text/Dictation Had an episode of chest burning last night. Unsure if chest pain. Denies any symptoms currently. Shortness of breath is better. Exam/Review of Systems Vital Signs Vitals Vital Signs Date Temp Pulse Resp B/P (MAP) Pulse Ox O2 O2 Flow FiO2 Time Delivery Rate 11/01/18 92 20 160/86 98 14:00 (110) 11/01/18 99.8 12:47 11/01/18 Nasal 10:00 Cannula 11/01/18 3.0 07:00 10/31/18 11:09 Intake and Output 10/31/18 10/31/18 11/01/18 1515:00 23:00 07:00 IntakeIntake Total 948 ml 464 ml 235 ml OutputOutput Total 1450 ml 1950 ml BalanceBalance 948 ml -986 ml -1715 ml Exam Constitutional: alert, oriented (No apparent distress, nurse at bedside, obesity) Head: normocephalic Respiratory: other (Coarse breath sounds bilaterally, no wheezing) Cardiovascular: regular rate and rhythm (S1-S2 heard, no murmurs appreciated) Gastrointestinal: soft, non-tender, bowel sounds Genitourinary - Male: other (Weber present) Extremities: edema Neurological: other (Following commands, moving all extremities) Labs Result Diagram: 11/01/18 0524 11/01/18 0511 Results 24hrs Laboratory Tests Test 10/31/18 17:08 10/31/18 17:11 10/31/18 20:27 10/31/18 21:00 Bedside Glucose 121 114 Potassium Level 5.2 H Creatine Kinase 54 Creatine Kinase 4.5 Index Creatinine Kinase 2.42 H MB (Mass) Troponin I 0.077 Test 10/31/18 23:09 11/01/18 00:28 11/01/18 03:00 11/01/18 04:48 Hemoglobin 7.6 L Hematocrit 22.5 L Bedside Glucose 129 129 Creatinine Kinase 3.55 H MB (Mass) Troponin I 0.316 *H Test 11/01/18 05:11 11/01/18 05:11 11/01/18 05:24 11/01/18 08:37 Sodium Level 139 Potassium Level 4.8 Chloride Level 105 Carbon Dioxide 26 Level Anion Gap 8 Blood Urea 67 H Nitrogen Creatinine 2.72 H Est Glomerular 24 L Filtrat Rate mL/min Glucose Level 107 Calcium Level 7.4 L Lab Scanned BLOOD TRANSFUSIO Report N White Blood Count 13.3 H Red Blood Count 2.73 L Hemoglobin 8.1 L Hematocrit 24.1 L Mean Corpuscular 88.3 Volume Mean Corpuscular 29.7 Hemoglobin Mean Corpuscular 33.6 Hemoglobin Concen t Red Cell 16.2 H Distribution Width Platelet Count 100 L Mean Platelet 9.5 Volume Immature 1.100 H Granulocytes % Neutrophils % 77.9 H Lymphocytes % 12.1 L Monocytes % 8.0 Eosinophils % 0.8 Basophils % 0.1 Nucleated Red 0.0 Blood Cells % Immature 0.150 H Granulocytes # Neutrophils # 10.4 H Lymphocytes # 1.6 Monocytes # 1.1 H Eosinophils # 0.1 Basophils # 0.0 Nucleated Red 0.0 Blood Cells # Creatine Kinase 102 Creatine Kinase 11.5 Index Creatinine Kinase 11.70 H MB (Mass) Troponin I 5.580 *H Test 11/01/18 09:33 11/01/18 13:04 Bedside Glucose 139 143 Medications Medications Current Medications IV Flush (NS 3 ml) 3 ml PER PROTOCOL IV ; Start 10/30/18 at 22:30 Ondansetron HCl (Zofran Tab) 4 mg Q6H PRN PO NAUSEA/VOMITING; Start 10/30/18 at 22:30 Ondansetron HCl (Zofran Inj) 4 mg Q6H PRN IV NAUSEA/VOMITING Last administered on 10/31/18at 20:56; Admin Dose 4 MG; Start 10/30/18 at 22:30 Acetaminophen (Tylenol Tab) 650 mg Q6H PRN PO .PAIN 1-3 OR TEMP Last administered on 11/01/18at 12:47; Admin Dose 650 MG; Start 10/30/18 at 22:30 Acetaminophen/ Hydrocodone Bitart ([place] (5/325)) 1 tab Q6H PRN PO .PAIN 4-6; Start 10/30/18 at 22:30 Bisacodyl (Dulcolax) 5 mg DAILY PRN PO .CONSTIPATION; Start 10/30/18 at 22:30 Octreotide Acetate 1 mg/ Dextrose 100 ml @ 5 mls/hr Q20H IV Last administered on 11/01/18at 00:16; Admin Dose 5 MLS/HR; Start 10/31/18 at 04:00 Metoprolol Tartrate (Lopressor) 2.5 mg Q6H PRN IV for systolic above 170 Last a dministered on 10/31/18at 21:43; Admin Dose 2.5 MG; Start 10/31/18 at 04:00 Insulin Aspart (Novolog Insulin Pen) NOVOLOG *MILD* ALGORI... Q4 SC Last administered on 11/01/18 13:13; Admin Dose 1 UNIT; Start 10/31/18 at 05:00 Hydralazine HCl (Apresoline) 10 mg Q4H PRN IV sbp>160 Last administered on 10/31/18at 19:56; Admin Dose 10 MG; Start 10/31/18 at 15:00 Pantoprazole 80 mg/Sodium Chloride 100 ml @ 10 mls/hr Q10H IVPB Last administered on 11/01/18at 12:55; Admin Dose 10 MLS/HR; Start 11/01/18 at 02:00 IV Flush (NS 10 ml) 10 ml PRN PRN IV IV PROTOCOL; Start 10/31/18 at 17:00 Bumetanide 25 mg/ Dextrose 250 ml @ 10 mls/hr Q24H IV Last administered on 10/31/18at 18:20; Admin Dose 10 MLS/HR; Start 10/31/18 at 18:00 Hydralazine HCl (Apresoline) 10 mg Q4H PRN IV systolic > 170 Last administered on 11/01/18at 11:05; Admin Dose 10 MG; Start 10/31/18 at 23:00 Hydralazine HCl (Apresoline) 20 mg Q6H PRN IV systolic > 190 ; Start 10/31/18 at 23:00 Bumetanide 6 mg/ Dextrose 60 ml @ 10 mls/hr Q6H ONCE IV ; Start 11/01/18 at 09:00; Stop 11/01/18 at 14:59 Prednisone (Prednisone) 40 mg DAILY PO ; Start 11/02/18 at 09:00 Atorvastatin Calcium (Lipitor) 80 mg HS PO ; Start 11/01/18 at 21:00 Metoprolol Tartrate (Lopressor) 2.5 mg Q4H IV Last administered on 11/01/18at 12:57; Admin Dose 2.5 MG; Start 11/01/18 at 13:00 Carvedilol (Coreg) 12.5 mg BID PO ; Start 11/01/18 at 21:00; Status Anirudh Mendez DO Nov 01, 2018 14:43
[2018-11-01] MEDS: BUMETANIDE 25 MG in DEXTROSE 5% 150 ML IV SCH (18:01)
[2018-11-01] MEDS: ATORVASTATIN 40 MG TAB PO SCH (21:28)
[2018-11-02] VITALS (24 sets, daily range): BP systolic 120–174; BP diastolic 55–79; PULSE 62–79; RESP 15–34
[2018-11-02] MEDS: INSULIN ASPART [NOVOLOG] 3 ML PEN SC SCH ×6 (01:00→22:14)
[2018-11-02] MEDS: METOPROLOL 5 MG INJ IV SCH ×3 (01:24→09:00)
--- NOTE | 2018-11-02 07:39 | RADRPT ---
Vent Rate: 94 bpm RR Interval: 640 msec VT Interval: 131 msec QRS Duration: 88 msec QT Interval: 353 msec QTC Interval: 441 msec P-R-T [place]: 65 - 62 - 198 degrees Sinus rhythm...normal P axis, V-rate 50- 99 Repol abnrm suggests ischemia, lateral leads...ST dep, T neg, I aVL V5 V6 Electronically Signed By: Dick Sims
[2018-11-02] MEDS: PANTOPRAZOLE IV 80 MG in SOD CHLORIDE 0.9% 100 ML IVPB SCH ×3 (08:00→17:24)
[2018-11-02] MEDS ORDERED: POTASSIUM CHLORIDE (SR) 20 MEQ TAB PO STA (08:02)
--- NOTE | 2018-11-02 08:44 | PN ---
DATE: 11/02/2018 SUBJECTIVE: The patient remains critically ill on Bumex drip. Overnight, the patient had excellent urinary output approximately 6 liters. No other events noted. No hemoptysis, hematemesis, or hemato chezia. OBJECTIVE: VITAL SIGNS: Blood pressure is 130/59, respirations 15, pulse 72, temperature 98.6. HEENT: Head is normocephalic. NECK: Supple. HEART: Tachycardic. LUNGS: Show diminished breath sounds at the base. ABDOMEN: Soft, nontender to palpation without rebound or guarding. EXTREMITIES: Negative for clubbing, cyanosis. Diffuse anasarca. DERMATOLOGIC: No rashes. MUSCULOSKELETAL: No joint effusion. NEUROLOGIC: No focal deficits. MEDICATIONS: Reviewed. LABORATORY DATA: Reviewed. IMAGING STUDIES: Reviewed. ASSESSMENT AND PLAN: 1. Nonoliguric acute kidney injury on top of chronic kidney disease with previous baseline creatinin e of approximately 2 to 3 mg/dL. Etiology of current acute kidney injury is likely secondary to hemo dynamics, acute tubular necrosis. 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 I did speak with the patient's primary rod cup filler, Dr. Luo, who stated the patient was on e mpiric steroids for possible primary nephrotic syndrome. The patient was not able to obtain a biopsy . Currently, during this hospital course, the patient has had an initial decline, but stabilization of renal function in last 48 to 72 hours. At this point, we would continue current medical managemen t. Continue diuretic therapy. Continue supportive care, renally dose all medications and avoid neph rotoxins. 2. Chronic kidney disease with presumed nephrotic syndrome. Etiology is unclear, possible FSGS, mem branous nephropathy, minimal change disease. The patient is currently on prednisone, we will continu e outpatient dose of 40 mg daily. Continue to treat acute kidney injury as stated above. Continue d iuretic regimen and monitor closely. 3. Anemia. Monitor hemoglobin and hematocrit levels. 4. Mineral bone disorder. Monitor calcium and phosphorus levels. 5. Hyperkalemia, resolved. 6. Volume overload. Etiology is multifactorial secondary to acute kidney injury, possible recent ne phrotic syndrome, diastolic heart failure. The patient is grossly volume overloaded, currently diure sing well. Continue Bumex drip. We will add metolazone to augment diuresis as needed. 7. Mineral bone disorder, monitor calcium and phosphorus levels. 8. Possible cirrhosis. Continue to monitor. Continue medical management. 9. Acute gastrointestinal bleed, etiology is unclear, possibly due to gastritis. Continue medical m anagement. Continue proton pump inhibitor. 10. Hypertension. Continue current blood pressure regimen. 11. History of coronary artery disease with PCI. Continue medical management. 12. Non-St elevation myocardial infarction. The patient may have elevated troponins. Continue curr ent medical management. Unfortunately, the patient is unable to have catheterization in this hospita l due to non-working catheterization lab. Continue to monitor. Follow up with Cardiology for recomm endations. Continue medical management. 13. Systemic inflammatory response syndrome. Continue to monitor. Please note, I spent over 30 minutes of critical care time with this patient. Dictated By: ARDEN BECKHAM DO NR/NTS Conf#: [id number] DID#: [id number] CC: LENARD PIÑA MD; DAYNA GOODEN MD; BONNIE LEACH MD;*EndCC*
[2018-11-02] MEDS: predniSONE 20 MG TAB PO SCH (09:42)
[2018-11-02] MEDS: SEVELAMER CARBONATE 800 MG TABLET PO SCH ×2 (12:32→17:03)
[2018-11-02] MEDS: OCTREOTIDE 1 MG in DEXTROSE 5% 95 ML IV SCH ×2 (12:54→16:00)
--- NOTE | 2018-11-02 14:24 | CONS ---
Consultation Date/Type/Reason Admit Date/Time Oct 30, 2018 at 22:13 Initial Consult Date Type of Consult Cardiology Date/Time of Note DATE: 11/02/18 TIME: 14:18 24 HR Interval Summary Free Text/Dictation Non-ST elevation myocardial infarction Left ventricular ejection fraction 55% Acute kidney injury Volume overload Acute blood loss anemia CAD with history of PCI April 2018 Hypertension Dyslipidemia Tobacco use Hemoglobin has improved and remained stable Volume status has improved after IV Bumex. Dr Downey spoke to our nephrology colleague as well as patient's outpatient marketing analytics lead. It appears his kidney function worsened after his angiogram in April 2018. Also appears to be an element of poor follow-up and noncompliant Patient with myocardial infarction, severe anemia likely secondary to GI bleed as well as acute kidney injury. Given his multiple pathologies and the concern if cardiac catheterization is necessary, would not be able to be performed at our facility given Press Catcher is currently nonfunctional. dr downey dis discuss with the patient's marketing analytics lead who is making arrangements for transfer to patient's primary hospital at [facility] in [place]. Patient did have his last coronary angiogram there April [address]. [address] downey spoke to accepting hospitalist at [facility] Dr. Amberly Rodrigues who is accepting the patient. In the interim, increase patient's statin dose, increased dose of carvedilol, add IV Lopressor for heart rate control. Check serial troponins, follow hemoglobin closely Exam/Review of Systems Vital Signs Vitals Vital Signs Date Temp Pulse Resp B/P (MAP) Pulse Ox O2 O2 Flow FiO2 Time Delivery Rate 11/02/18 64 13:16 11/02/18 97.6 22 120/74 98 Nasal 11:14 (89) Cannula 11/02/18 3.0 07:00 10/31/18 21 11:09 Intake and Output 11/01/18 11/01/18 11/02/18 1515:00 23:00 07:00 IntakeIntake Total 1030 ml 950 ml 325 ml OutputOutput Total 2700 ml 1950 ml 1380 ml BalanceBalance -1670 ml -1000 ml -1055 ml Labs Result Diagram: 11/02/18 0420 11/02/18 0420 Results 24hrs Laboratory Tests Test 11/01/18 15:13 11/01/18 17:26 11/01/18 21:23 11/01/18 21:30 White Blood Count 12.4 H Red Blood Count 2.60 L Hemoglobin 7.8 L 9.0 L Hematocrit 23.2 L 26.5 L Mean Corpuscular 89.2 Volume Mean Corpuscular 30.0 Hemoglobin Mean Corpuscular 33.6 Hemoglobin Concen t Red Cell 16.2 H Distribution Width Platelet Count 93 L Mean Platelet 9.2 Volume Immature 1.000 H Granulocytes % Neutrophils % 79.9 H Lymphocytes % 9.5 L Monocytes % 8.8 Eosinophils % 0.6 Basophils % 0.2 Nucleated Red 0.0 Blood Cells % Immature 0.120 H Granulocytes # Neutrophils # 9.9 H Lymphocytes # 1.2 Monocytes # 1.1 H Eosinophils # 0.1 Basophils # 0.0 Nucleated Red 0.0 Blood Cells # Creatine Kinase 84 Creatine Kinase 10.6 Index Creatinine Kinase 8.92 H MB (Mass) Troponin I 5.920 *H 5.160 *H Bedside Glucose 155 136 Test 11/02/18 01:18 11/02/18 01:26 11/02/18 04:20 11/02/18 05:07 Troponin I 3.890 *H 3.100 *H Bedside Glucose 128 White Blood Count 11.6 H Red Blood Count 2.96 L Hemoglobin 8.8 L Hematocrit 26.6 L Mean Corpuscular 89.9 Volume Mean Corpuscular 29.7 Hemoglobin Mean Corpuscular 33.1 Hemoglobin Concen t Red Cell 15.4 H Distribution Width Platelet Count 89 L Mean Platelet 9.4 Volume Immature 1.100 H Granulocytes % Neutrophils % 79.8 H Lymphocytes % 9.6 L Monocytes % 8.5 Eosinophils % 0.9 Basophils % 0.1 Nucleated Red 0.0 Blood Cells % Immature 0.130 H Granulocytes # Neutrophils # 9.3 H Lymphocytes # 1.1 Monocytes # 1.0 H Eosinophils # 0.1 Basophils # 0.0 Nucleated Red 0.0 Blood Cells # Sodium Level 136 Potassium Level 3.5 Chloride Level 98 Carbon Dioxide 31 Level Anion Gap 7 Blood Urea 68 H Nitrogen Creatinine 2.77 H Est Glomerular 24 L Filtrat Rate mL/min Glucose Level 120 Calcium Level 7.6 L Phosphorus Level 7.2 H Magnesium Level 1.7 Lab Scanned BLOOD TRANSFUSIO Report N Test 11/02/18 05:19 11/02/18 09:40 11/02/18 11:47 11/02/18 12:10 Bedside Glucose 133 144 205 Troponin I 2.140 *H Medications Medications Current Medications IV Flush (NS 3 ml) 3 ml PER PROTOCOL IV ; Start 10/30/18 at 22:30 Ondansetron HCl (Zofran Tab) 4 mg Q6H PRN PO NAUSEA/VOMITING; Start 10/30/18 at 22:30 Ondansetron HCl (Zofran Inj) 4 mg Q6H PRN IV NAUSEA/VOMITING Last administered on 10/31/18 20:56; Admin Dose 4 MG; Start 10/30/18 at 22:30 Acetaminophen (Tylenol Tab) 650 mg Q6H PRN PO .PAIN 1-3 OR TEMP Last administered on 11/01/18 12:47; Admin Dose 650 MG; Start 10/30/18 at 22:30 Acetaminophen/ Hydrocodone Bitart ([place] (5/325)) 1 tab Q6H PRN PO .PAIN 4-6; Start 10/30/18 at 22:30 Bisacodyl (Dulcolax) 5 mg DAILY PRN PO .CONSTIPATION; Start 10/30/18 at 22:30 Octreotide Acetate 1 mg/ Dextrose 100 ml @ 5 mls/hr Q20H IV Last administered on 11/02/18at 12:54; Admin Dose 5 MLS/HR; Start 10/31/18 at 04:00 Metoprolol Tartrate (Lopressor) 2.5 mg Q6H PRN IV for systolic above 170 Last administered on 10/31/18 21:43; Admin Dose 2.5 MG; Start 10/31/18 at 04:00 Insulin Aspart (Novolog Insulin Pen) NOVOLOG *MILD* ALGORI... Q4 SC Last administered on 11/02/18 12:15; Admin Dose 2 UNIT; Start 10/31/18 at 05:00 Pantoprazole 80 mg/Sodium Chloride 100 ml @ 10 mls/hr Q10H IVPB Last administered on 11/02/18at 11:54; Admin Dose 10 MLS/HR; Start 11/01/18 at 02:00 IV Flush (NS 10 ml) 10 ml PRN PRN IV IV PROTOCOL; Start 10/31/18 at 17:00 Bumetanide 25 mg/ Dextrose 250 ml @ 10 mls/hr Q24H IV Last administered on 11/01/18 18:01; Admin Dose 10 MLS/HR; Start 10/31/18 at 18:00 Hydralazine HCl (Apresoline) 10 mg Q4H PRN IV systolic > 170 Last administered on 11/01/18 11:05; Admin Dose 10 MG; Start 10/31/18 at 23:00 Hydralazine HCl (Apresoline) 20 mg Q6H PRN IV systolic > 190 ; Start 10/31/18 at 23:00 Prednisone (Prednisone) 40 mg DAILY PO Last administered on 11/02/18 09:42; Admin Dose 40 MG; Start 11/02/18 at 09:00 Atorvastatin Calcium (Lipitor) 80 mg HS PO Last administered on 11/01/18at 21:28; Admin Dose 80 MG; Start 11/01/18 at 21:00 Carvedilol (Coreg) 12.5 mg BID PO Last administered on 11/02/18 09:42; Admin D ose 12.5 MG; Start 11/01/18 at 21:00 Labetalol HCl (Labetalol) 10 mg Q4H PRN IV sbp>160; Start 11/01/18 at 15:00 Sevelamer Carbonate (Renvela) 800 mg WITH MEALS PO Last administered on 11/02/18 12:32; Admin Dose 800 MG; Start 11/02/18 at 11:30 CR CASTELAN MD Nov 02, 2018 14:24
--- NOTE | 2018-11-02 15:41 | PN ---
Date/Time of Note Date/Time of Note DATE: 11/02/18 TIME: 15:37 Assessment/Plan VTE Prophylaxis Risk score (from Ns)>0 risk: 4 SCD applied (from Ns): Yes Pharmacological prophylaxis: NA/contraindicated Pharm contraindication: bleeding Lines/Catheters IV Catheter Type (from [facility]): [facility] Assessment/Plan Hospital Course 1. Anemia secondary to active GI bleed Patient with a history of gastritis per previous endoscopy, patient with melena and upper GI bleed on admission as well as anemia Status post blood transfusion Continue famotidine drip as well as octreotide drip. GI consultation with Dr. Whitaker appreciated CT abdomen does show cirrhosis and possible colitis 2. Acute kidney injury on possible CKD Nephrology consultation appreciated Patient with nephrotic syndrome at baseline, has been on steroid therapy with improvement 3. Anasarca secondary to cirrhosis and nephrotic syndrome Patient does have a history of nephrotic syndrome and was started on steroid therapy by primary log cooker Bumex IV Echo shows preserved EF 4. Coronary disease Patient is status post stenting in May Hold home aspirin and Plavix given GI bleed Cardiology consultation appreciated 5. Non-STEMI secondary to demand Troponin is now stabilizing Cardiology consultation appreciated, recommendation is for transfer to patient's primary hospital [facility] as Supervisor Powdered Metal is currently down 5. Hypertension Hydralazine PRN 6. Morbid obesity Lifestyle changes Prophylaxis: SCDs, famotidine drip DC planning: Have been attempting to transfer to [facility] with no success as well there is an accepting hospitalist there is no excepting rug frame mounter, in addition patient does not want to be transferred, follow-up with staffing consultant recommendations Result Diagram: 11/02/18 0420 11/02/18 0420 Results 24hrs Laboratory Tests Test 11/01/18 17:26 11/01/18 21:23 11/01/18 21:30 11/02/18 01:18 Bedside Glucose 155 136 Hemoglobin 9.0 L Hematocrit 26.5 L Troponin I 5.160 *H 3.890 *H Test 11/02/18 01:26 11/02/18 04:20 11/02/18 05:07 11/02/18 05:19 Bedside Glucose 128 133 White Blood Count 11.6 H Red Blood Count 2.96 L Hemoglobin 8.8 L Hematocrit 26.6 L Mean Corpuscular 89.9 Volume Mean Corpuscular 29.7 Hemoglobin Mean Corpuscular 33.1 Hemoglobin Concen t Red Cell 15.4 H Distribution Width Platelet Count 89 L Mean Platelet 9.4 Volume Immature 1.100 H Granulocytes % Neutrophils % 79.8 H Lymphocytes % 9.6 L Monocytes % 8.5 Eosinophils % 0.9 Basophils % 0.1 Nucleated Red 0.0 Blood Cells % Immature 0.130 H Granulocytes # Neutrophils # 9.3 H Lymphocytes # 1.1 Monocytes # 1.0 H Eosinophils # 0.1 Basophils # 0.0 Nucleated Red 0.0 Blood Cells # Sodium Level 136 Potassium Level 3.5 Chloride Level 98 Carbon Dioxide 31 Level Anion Gap 7 Blood Urea 68 H Nitrogen Creatinine 2.77 H Est Glomerular 24 L Filtrat Rate mL/min Glucose Level 120 Calcium Level 7.6 L Phosphorus Level 7.2 H Magnesium Level 1.7 Troponin I 3.100 *H Lab Scanned BLOOD TRANSFUSIO Report N Test 11/02/18 09:40 11/02/18 11:47 11/02/18 12:10 Bedside Glucose 144 205 Troponin I 2.140 *H Subjective 24 Hr Interval Summary Constitutional: no complaints Exam/Review of Systems Exam Vitals Vital Signs Date Temp Pulse Resp B/P (MAP) Pulse Ox O2 O2 Flow FiO2 Time Delivery Rate 11/02/18 98.5 78 18 122/65 98 Nasal 15:01 (84) Cannula 11/02/18 3.0 09:20 10/31/18 21 11:09 Intake and Output 11/01/18 11/01/18 11/02/18 1515:00 23:00 07:00 IntakeIntake Total 1030 ml 950 ml 325 ml OutputOutput Total 2700 ml 1950 ml 1380 ml BalanceBalance -1670 ml -1000 ml -1055 ml Constitutional: alert, oriented Respiratory: clear to auscultation Cardiovascular: regular rate and rhythm Gastrointestinal: soft; No distended Musculoskeletal: nl extremities to inspection Results Results 24hrs Laboratory Tests Test 11/01/18 17:26 11/01/18 21:23 11/01/18 21:30 11/02/18 01:18 Bedside Glucose 155 136 Hemoglobin 9.0 L Hematocrit 26.5 L Troponin I 5.160 *H 3.890 *H Test 11/02/18 01:26 11/02/18 04:20 11/02/18 05:07 11/02/18 05:19 Bedside Glucose 128 133 White Blood Count 11.6 H Red Blood Count 2.96 L Hemoglobin 8.8 L Hematocrit 26.6 L Mean Corpuscular 89.9 Volume Mean Corpuscular 29.7 Hemoglobin Mean Corpuscular 33.1 Hemoglobin Concen t Red Cell 15.4 H Distribution Width Platelet Count 89 L Mean Platelet 9.4 Volume Immature 1.100 H Granulocytes % Neutrophils % 79.8 H Lymphocytes % 9.6 L Monocytes % 8.5 Eosinophils % 0.9 Basophils % 0.1 Nucleated Red 0.0 Blood Cells % Immature 0.130 H Granulocytes # Neutrophils # 9.3 H Lymphocytes # 1.1 Monocytes # 1.0 H Eosinophils # 0.1 Basophils # 0.0 Nucleated Red 0.0 Blood Cells # Sodium Level 136 Potassium Level 3.5 Chloride Level 98 Carbon Dioxide 31 Level Anion Gap 7 Blood Urea 68 H Nitrogen Creatinine 2.77 H Est Glomerular 24 L Filtrat Rate mL/min Glucose Level 120 Calcium Level 7.6 L Phosphorus Level 7.2 H Magnesium Level 1.7 Troponin I 3.100 *H Lab Scanned BLOOD TRANSFUSIO Report N Test 11/02/18 09:40 11/02/18 11:47 11/02/18 12:10 Bedside Glucose 144 205 Troponin I 2.140 *H Medications Medication Current Medications IV Flush (NS 3 ml) 3 ml PER PROTOCOL IV ; Start 10/30/18 at 22:30 Ondansetron HCl (Zofran Tab) 4 mg Q6H PRN PO NAUSEA/VOMITING; Start 10/30/18 at 22:30 Ondansetron HCl (Zofran Inj) 4 mg Q6H PRN IV NAUSEA/VOMITING Last administered on 10/31/18at 20:56; Admin Dose 4 MG; Start 10/30/18 at 22:30 Acetaminophen (Tylenol Tab) 650 mg Q6H PRN PO .PAIN 1-3 OR TEMP Last administered on 11/01/18at 12:47; Admin Dose 650 MG; Start 10/30/18 at 22:30 Acetaminophen/ Hydrocodone Bitart ([place] (5/325)) 1 tab Q6H PRN PO .PAIN 4-6; Start 10/30/18 at 22:30 Bisacodyl (Dulcolax) 5 mg DAILY PRN PO .CONSTIPATION; Start 10/30/18 at 22:30 Octreotide Acetate 1 mg/ Dextrose 100 ml @ 5 mls/hr Q20H IV Last administered on 11/02/18 12:54; Admin Dose 5 MLS/HR; Start 10/31/18 at 04:00 Metoprolol Tartrate (Lopressor) 2.5 mg Q6H PRN IV for systolic above 170 Last administered on 10/31/18at 21:43; Admin Dose 2.5 MG; Start 10/31/18 at 04:00 Insulin Aspart (Novolog Insulin Pen) NOVOLOG *MILD* ALGORI... Q4 SC Last administered on 11/02/18 12:15; Admin Dose 2 UNIT; Start 10/31/18 at 05:00 Pantoprazole 80 mg/Sodium Chloride 100 ml @ 10 mls/hr Q10H IVPB Last administered on 11/02/18 11:54; Admin Dose 10 MLS/HR; Start 11/01/18 at 02:00 IV Flush (NS 10 ml) 10 ml PRN PRN IV IV PROTOCOL; Start 10/31/18 at 17:00 Bumetanide 25 mg/ Dextrose 250 ml @ 10 mls/hr Q24H IV Last administered on 11/01/18 18:01; Admin Dose 10 MLS/HR; Start 10/31/18 at 18:00 Hydralazine HCl (Apresoline) 10 mg Q4H PRN IV systolic > 170 Last administered on 11/01/18at 11:05; Admin Dose 10 MG; Start 10/31/18 at 23:00 Hydralazine HCl (Apresoline) 20 mg Q6H PRN IV systolic > 190 ; Start 10/31/18 at 23:00 Prednisone (Prednisone) 40 mg DAILY PO Last administered on 11/02/18 09:42; Admin Dose 40 MG; Start 11/02/18 at 09:00 Atorvastatin Calcium (Lipitor) 80 mg HS PO Last administered on 11/01/18at 21:28; Admin Dose 80 MG; Start 11/01/18 at 21:00 Carvedilol (Coreg) 12.5 mg BID PO Last administered on 11/02/18at 09:42; Admin Dose 12.5 MG; Start 11/01/18 at 21:00 Labetalol HCl (Labetalol) 10 mg Q4H PRN IV sbp>160; Start 11/01/18 at 15:00 Sevelamer Carbonate (Renvela) 800 mg WITH MEALS PO Last administered on 11/02/18at 12:32; Admin Dose 800 MG; Start 11/02/18 at 11:30 LENARD PIÑA Nov 02, 2018 15:41
[2018-11-02] MEDS: BUMETANIDE 25 MG in DEXTROSE 5% 150 ML IV SCH (17:52)
[2018-11-02] MEDS: ATORVASTATIN 40 MG TAB PO SCH (20:14)
[2018-11-02] MEDS: hydrALAzine 20 MG INJ IV PRN (20:14)
--- NOTE | 2018-11-02 22:21 | CONS ---
DATE OF ADMISSION: 10/30/2018 DATE OF CONSULTATION: 11/02/2018 HISTORY OF PRESENT ILLNESS: The patient was admitted because of GI bleeding and the patient is known to have cirrhosis and severe anemia with hemoglobin around 5.6, subsequently he was transfused up 8 to 9 grams. He has been having melenic stool periodically. However, in the past couple of days, his troponin went up to 5.9 and hence cardiology consultation has been requested. Dr. Downey and Dr. Venita ham had been evaluating the patient from the cardiology standpoint. Cardiac catheterization was tram nned. However, because the cardiac cath lab radiology technologist in the [facility] is nonfunctional, the patient was tram nned to be transferred to [facility]. However, it seems the patient has refused to be transferred. At this time, no history of vomiting, no history of passing blood from the rectum. PHYSICAL EXAMINATION: GENERAL: He is alert. VITAL SIGNS: He is afebrile. Blood pressure is 174/79. CARDIOVASCULAR: Normal heart sounds. RESPIRATORY: Normal breath sounds. ABDOMEN: Showed unremarkable findings. CLINICAL IMPRESSION: Severe anemia due to gastrointestinal bleeding, rule out esophageal varices, pe ptic ulcer disease. PLAN: At this time, EGD cannot be performed without stabilizing the heart status. He needs a cardia c catheterization perhaps stent placement and then when he is stable, endoscopy can be performed. m Meanwhile, continue Protonix. Dictated By: DAYNA GOODEN MD NC/NTS Conf#: [id number] DID#: [id number] CC: BONNIE LEACH MD; LENARD PIÑA MD;*[facility]*
[2018-11-03] VITALS (11 sets, daily range): BP systolic 118–136; BP diastolic 65–79; PULSE 66–92; RESP 18–22
[2018-11-03] MEDS: ACCUCHECK AT 2AM (Patients on SS coverage) XX SCH (02:03)
[2018-11-03] MEDS: LABETALOL HCL 20MG INJ IV PRN (02:26)
[2018-11-03] MEDS: PANTOPRAZOLE IV 80 MG in SOD CHLORIDE 0.9% 100 ML IVPB SCH ×3 (04:13→23:46)
[2018-11-03] MEDS ORDERED: INSULIN ASPART [NOVOLOG] 3 ML PEN SC SCH (07:25)
[2018-11-03] MEDS: SEVELAMER CARBONATE 800 MG TABLET PO SCH ×3 (08:02→17:20)
[2018-11-03] MEDS: predniSONE 20 MG TAB PO SCH (08:02)
[2018-11-03] MEDS: Insulin NOVOLOG SS MILD Algorithm (SS with meals and bedtime) SC SCH ×2 (08:38→12:40)
--- NOTE | 2018-11-03 09:50 | CONS ---
Assessment/Plan Assessment/Plan Assessment/Plan (Daily) Non-ST elevation myocardial infarction Left ventricular ejection fraction 55% Acute kidney injury Volume overload Acute blood loss anemia CAD with history of PCI April 2018 Hypertension Dyslipidemia Tobacco use Hemoglobin has improved and remained stable Volume status has improved after IV Bumex. Dr Downey spoke to our nephrology colleague as well as patient's outpatient proposal review analyst. It appears his kidney function worsened after his angiogram in April 2018. Also appears to be an element of poor follow-up and noncompliant Patient with myocardial infarction, severe anemia likely secondary to GI bleed as well as acute kidney injury. Given his multiple pathologies and the concern if cardiac catheterization is necessary, would not be able to be performed at our facility given [employer] Supervisor is currently nonfunctional. dr downey dis discuss with the patient's proposal review analyst who is making arrangements for transfer to patient's primary hospital at [facility] in [place]. Patient did have his last coronary angiogram there April 2018. dr downey spoke to accepting hospitalist at [facility] Dr. Amberly Rodrigues who is accepting the patient.Currenty patient has high risk of bleeding if patient has a cath and pci In the interim, increase patient's statin dose, increased dose of carvedilol, add IV Lopressor for heart rate control. follow hemoglobin closely Consultation Date/Type/Reason Admit Date/Time Oct 30, 2018 at 22:13 Initial Consult Date Type of Consult Cardiology Date/Time of Note DATE: 11/03/18 TIME: 09:49 24 HR Interval Summary Free Text/Dictation the aptient improved Exam/Review of Systems Vital Signs Vitals Vital Signs Date Temp Pulse Resp B/P (MAP) Pulse Ox O2 O2 Flow FiO2 Time Delivery Rate 11/03/18 98.2 73 18 136/71 97 Nasal 07:22 (92) Cannula 11/03/18 3.0 06:05 10/31/18 21 11:09 Intake and Output 11/02/18 11/02/18 11/03/18 1515:00 23:00 07:00 IntakeIntake Total 675 ml 510 ml OutputOutput Total 2150 ml 820 ml 3450 ml BalanceBalance -1475 ml -310 ml -3450 ml Labs Result Diagram: 11/03/18 0550 11/03/18 0550 Results 24hrs Laboratory Tests Test 11/02/18 11:47 11/02/18 12:10 11/02/18 16:53 11/02/18 18:01 Troponin I 2.140 *H 1.530 *H Bedside Glucose 205 214 Test 11/02/18 20:05 11/03/18 00:32 11/03/18 01:51 11/03/18 05:50 Bedside Glucose 254 H 194 Troponin I 1.170 *H 1.060 *H White Blood Count 8.7 # Red Blood Count 3.04 L Hemoglobin 9.0 L Hematocrit 26.4 L Mean Corpuscular 86.8 Volume Mean Corpuscular 29.6 Hemoglobin Mean Corpuscular 34.1 Hemoglobin Concent Red Cell 14.6 H Distribution Width Platelet Count 99 L Mean Platelet Volume 10.0 Immature 0.700 H Granulocytes % Neutrophils % 82.6 H Lymphocytes % 8.3 L Monocytes % 8.3 Eosinophils % 0.0 Basophils % 0.1 Nucleated Red Blood 0.0 Cells % Immature 0.060 H Granulocytes # Neutrophils # 7.2 Lymphocytes # 0.7 L Monocytes # 0.7 Eosinophils # 0.0 Basophils # 0.0 Nucleated Red Blood 0.0 Cells # Sodium Level 138 Potassium Level 3.3 L Chloride Level 90 L Carbon Dioxide Level 36 H Anion Gap 12 Blood Urea Nitrogen 67 H Creatinine 2.60 H Est Glomerular 25 L Filtrat Rate mL/min Glucose Level 154 Calcium Level 7.7 L Phosphorus Level 7.2 H Magnesium Level 1.7 Test 11/03/18 07:59 Bedside Glucose 256 H Medications Medications Current Medications IV Flush (NS 3 ml) 3 ml PER PROTOCOL IV ; Start 10/30/18 at 22:30 Ondansetron HCl (Zofran Tab) 4 mg Q6H PRN PO NAUSEA/VOMITING; Start 10/30/18 at 22:30 Ondansetron HCl (Zofran Inj) 4 mg Q6H PRN IV NAUSEA/VOMITING Last administered on 10/31/18at 20:56; Admin Dose 4 MG; Start 10/30/18 at 22:30 Acetaminophen (Tylenol Tab) 650 mg Q6H PRN PO .PAIN 1-3 OR TEMP Last administered on 11/01/18at 12:47; Admin Dose 650 MG; Start 10/30/18 at 22:30 Acetaminophen/ Hydrocodone Bitart ([place] (5/325)) 1 tab Q6H PRN PO .PAIN 4-6; Start 10/30/18 at 22:30 Bisacodyl (Dulcolax) 5 mg DAILY PRN PO .CONSTIPATION; Start 10/30/18 at 22:30 Octreotide Acetate 1 mg/ Dextrose 100 ml @ 5 mls/hr Q20H IV Last administered on 11/02/18at 12:54; Admin Dose 5 MLS/HR; Start 10/31/18 at 04:00 Metoprolol Tartrate (Lopressor) 2.5 mg Q6H PRN IV for systolic above 170 Last administered on 10/31/18at 21:43; Admin Dose 2.5 MG; Start 10/31/18 at 04:00 Pantoprazole 80 mg/Sodium Chloride 100 ml @ 10 mls/hr Q10H IVPB Last administered on 11/03/18at 04:13; Admin Dose 10 MLS/HR; Start 11/01/18 at 02:00 IV Flush (NS 10 ml) 10 ml PRN PRN IV IV PROTOCOL; Start 10/31/18 at 17:00 Bumetanide 25 mg/ Dextrose 250 ml @ 10 mls/hr Q24H IV Last administered on 11/02/18at 17:52; Admin Dose 10 MLS/HR; Start 10/31/18 at 18:00 Hydralazine HCl (Apresoline) 10 mg Q4H PRN IV systolic > 170 Last administered on 11/02/18at 20:14; Admin Dose 10 MG; Start 10/31/18 at 23:00 Hydralazine HCl (Apresoline) 20 mg Q6H PRN IV systolic > 190 ; Start 10/31/18 at 23:00 Prednisone (Prednisone) 40 mg DAILY PO Last administered on 11/03/18at 08:02; Admin Dose 40 MG; Start 11/02/18 at 09:00 Atorvastatin Calcium (Lipitor) 80 mg HS PO Last administered on 11/02/18at 20:14; Admin Dose 80 MG; Start 11/01/18 at 21:00 Carvedilol (Coreg) 12.5 mg BID PO Last administered on 11/03/18at 08:02; Admin Dose 12.5 MG; Start 11/01/18 at 21:00 Labetalol HCl (Labetalol) 10 mg Q4H PRN IV sbp>160 Last administered on 11/03/18 02:26; Admin Dose 10 MG; Start 11/01/18 at 15:00 Sevelamer Carbonate (Renvela) 800 mg WITH MEALS PO Last administered on 11/03/18 08:02; Admin Dose 800 MG; Start 11/02/18 at 11:30 Insulin Aspart (Novolog Insulin Pen) (Adult SC Insulin - Mild Algorithm)... AC MEALS AND BEDTIME SC Last administered on 11/03/18 08:38; Admin Dose 3 UNIT; Start 11/03/18 at 07:25 Diagnostic Test (Pha) (Accu-Chek) 1 ea 02 XX Last administered on 11/03/18 02:03; Admin Dose 1 EA; Start 11/03/18 at 02:00 CR CASTELAN MD Nov 03, 2018 09:50
--- NOTE | 2018-11-03 11:10 | CONS ---
Consult Date/Type/Reason Admit Date/Time Oct 30, 2018 at 22:13 Initial Consult Date Date/Time of Note DATE: 11/03/18 TIME: 11:04 Subjective Volume status has improved after IV Bumex. It appears his kidney function worsened after his angiogram in April 2018. Also appears to be an element of poor follow-up and noncompliant Patient with myocardial infarction, severe anemia likely secondary to GI bleed as well as acute kidney injury. the patient had excellent urinary output since admission . No other events noted. No hemoptysis, hematemesis, or hematochezia. OBJECTIVE: VITAL SIGNS: Blood pressure is 130/59, respirations 15, pulse 72, temperature 98.6. HEENT: Head is normocephalic. NECK: Supple. HEART: Tachycardic. LUNGS: Show diminished breath sounds at the base. ABDOMEN: Soft, nontender to palpation without rebound or guarding. EXTREMITIES: Negative for clubbing, cyanosis. Diffuse anasarca. DERMATOLOGIC: No rashes. MUSCULOSKELETAL: No joint effusion. NEUROLOGIC: No focal deficits. Objective Vitals Vital Signs Date Temp Pulse Resp B/P (MAP) Pulse Ox O2 O2 Flow FiO2 Time Delivery Rate 11/03/18 92 08:00 11/03/18 98.2 18 136/71 97 Nasal 07:22 (92) Cannula 11/03/18 3.0 06:05 10/31/18 21 11:09 Intake and Output 11/02/18 11/02/18 11/03/18 1515:00 23:00 07:00 IntakeIntake Total 675 ml 510 ml OutputOutput Total 2150 ml 820 ml 3450 ml BalanceBalance -1475 ml -310 ml -3450 ml Results/Medications Result Diagram: 11/03/18 0550 11/03/18 0550 Results 24 hrs Laboratory Tests Test 11/02/18 11:47 11/02/18 12:10 11/02/18 16:53 11/02/18 18:01 Troponin I 2.140 *H 1.530 *H Bedside Glucose 205 214 Test 11/02/18 20:05 11/03/18 00:32 11/03/18 01:51 11/03/18 05:50 Bedside Glucose 254 H 194 Troponin I 1.170 *H 1.060 *H White Blood Count 8.7 # Red Blood Count 3.04 L Hemoglobin 9.0 L Hematocrit 26.4 L Mean Corpuscular 86.8 Volume Mean Corpuscular 29.6 Hemoglobin Mean Corpuscular 34.1 Hemoglobin Concent Red Cell 14.6 H Distribution Width Platelet Count 99 L Mean Platelet Volume 10.0 Immature 0.700 H Granulocytes % Neutrophils % 82.6 H Lymphocytes % 8.3 L Monocytes % 8.3 Eosinophils % 0.0 Basophils % 0.1 Nucleated Red Blood 0.0 Cells % Immature 0.060 H Granulocytes # Neutrophils # 7.2 Lymphocytes # 0.7 L Monocytes # 0.7 Eosinophils # 0.0 Basophils # 0.0 Nucleated Red Blood 0.0 Cells # Sodium Level 138 Potassium Level 3.3 L Chloride Level 90 L Carbon Dioxide Level 36 H Anion Gap 12 Blood Urea Nitrogen 67 H Creatinine 2.60 H Est Glomerular 25 L Filtrat Rate mL/min Glucose Level 154 Calcium Level 7.7 L Phosphorus Level 7.2 H Magnesium Level 1.7 Test 11/03/18 07:59 Bedside Glucose 256 H Home Meds Reported Medications Furosemide* (Furosemide*) 20 Mg Tablet, 20 MG PO for EVERY OTHER DAY for 30 Days TAKE ONE TABLET BY MOUTH EVERY OTHER DAY 10/31/18 Calcium Carbonate/Vitamin D3 (OYSTER SHELL 500 MG + VIT D TB) 1 Each Tablet, 1 TAB PO BID TAKE ONE TABLET BY MOUTH 2 TIMES A DAY 10/31/18 Carvedilol* (Carvedilol*) 6.25 Mg Tablet, 6.25 MG PO Q12H for 30 Days TAKE 1 TAB BY MOUTH EVERY 12 HOURS HOLD IF HEART RATE UNDER 60 OR SBP UNDER 100 10/31/18 Famotidine* (Famotidine*) 20 Mg Tablet, 20 MG PO DAILY for 30 Days, #30 10/31/18 Prednisone* (Prednisone*) 20 Mg Tab, 20 MG PO DAILY 10/31/18 Nifedipine* (Nifedipine ER*) 90 Mg Tablet.er, 90 MG PO DAILY for 30 Days, #30 10/31/18 Discontinued Reported Medications Aspirin* (Aspirin* EC) 81 Mg Tablet.dr, 81 MG PO DAILY for 30 Days, #30 10/31/18 Clopidogrel Bisulfate (Clopidogrel) 75 Mg Tablet, 75 MG PO DAILY 10/31/18 [No Meds] No Conflict Check 03/09/15 Medications Current Medications IV Flush (NS 3 ml) 3 ml PER PROTOCOL IV ; Start 10/30/18 at 22:30 Ondansetron HCl (Zofran Tab) 4 mg Q6H PRN PO NAUSEA/VOMITING; Start 10/30/18 at 22:30 Ondansetron HCl (Zofran Inj) 4 mg Q6H PRN IV NAUSEA/VOMITING Last administered on 10/31/18 20:56; Admin Dose 4 MG; Start 10/30/18 at 22:30 Acetaminophen (Tylenol Tab) 650 mg Q6H PRN PO .PAIN 1-3 OR TEMP Last administered on 11/01/18 12:47; Admin Dose 650 MG; Start 10/30/18 at 22:30 Acetaminophen/ Hydrocodone Bitart ([place] (5/325)) 1 tab Q6H PRN PO .PAIN 4-6; Start 10/30/18 at 22:30 Bisacodyl (Dulcolax) 5 mg DAILY PRN PO .CONSTIPATION; Start 10/30/18 at 22:30 Octreotide Acetate 1 mg/ Dextrose 100 ml @ 5 mls/hr Q20H IV Last administered on 11/02/18 12:54; Admin Dose 5 MLS/HR; Start 10/31/18 at 04:00 Metoprolol Tartrate (Lopressor) 2.5 mg Q6H PRN IV for systolic above 170 Last administered on 10/31/18 21:43; Admin Dose 2.5 MG; Start 10/31/18 at 04:00 Pantoprazole 80 mg/Sodium Chloride 100 ml @ 10 mls/hr Q10H IVPB Last administered on 11/03/18 04:13; Admin Dose 10 MLS/HR; Start 11/01/18 at 02:00 IV Flush (NS 10 ml) 10 ml PRN PRN IV IV PROTOCOL; Start 10/31/18 at 17:00 Bumetanide 25 mg/ Dextrose 250 ml @ 10 mls/hr Q24H IV Last administered on 11/02/18 17:52; Admin Dose 10 MLS/HR; Start 10/31/18 at 18:00 Hydralazine HCl (Apresoline) 10 mg Q4H PRN IV systolic > 170 Last administered on 11/02/18 20:14; Admin Dose 10 MG; Start 10/31/18 at 23:00 Hydralazine HCl (Apresoline) 20 mg Q6H PRN IV systolic > 190 ; Start 10/31/18 at 23:00 Prednisone (Prednisone) 40 mg DAILY PO Last administered on 11/03/18 08:02; Admin Dose 40 MG; Start 11/02/18 at 09:00 Atorvastatin Calcium (Lipitor) 80 mg HS PO Last administered on 11/02/18 20:14; Admin Dose 80 MG; Start 11/01/18 at 21:00 Carvedilol (Coreg) 12.5 mg BID PO Last administered on 11/03/18 08:02; Admin Dose 12.5 MG; Start 11/01/18 at 21:00 Labetalol HCl (Labetalol) 10 mg Q4H PRN IV sbp>160 Last administered on 11/03/18 02:26; Admin Dose 10 MG; Start 11/01/18 at 15:00 Sevelamer Carbonate (Renvela) 800 mg WITH MEALS PO Last administered on 11/03/18 08:02; Admin Dose 800 MG; Start 11/02/18 at 11:30 Insulin Aspart (Novolog Insulin Pen) (Adult SC Insulin - Mild Algorithm)... AC MEALS AND BEDTIME SC Last administered on 11/03/18 08:38; Admin Dose 3 UNIT; Start 11/03/18 at 07:25 Diagnostic Test (Pha) (Accu-Chek) 1 ea 02 XX Last administered on 11/03/18 02:03; Admin Dose 1 EA; Start 11/03/18 at 02:00 Assessment/Plan Assessment/Plan (Daily) 1. Nonoliguric acute kidney injury on top of chronic kidney disease with previous baseline creatinine of approximately 2 to 3 mg/dL. Etiology of current acute kidney injury is likely secondary to hemodynamics, acute tubular necrosis. 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 discussed with the patient's primary border machine operator, Dr. Luo, who stated the patient was on empiric steroids for possible primary nephrotic syndrome. The patient was not able to obtain a biopsy. Currently, during this hospital course, the patient has had an initial decline, but stabilization of renal function in last 48 to 72 hours. At this point, we would continue current medical management. Continue diuretic therapy. Continue supportive care, renally dose all medications and avoid nephrotoxins. 2. Chronic kidney disease with presumed nephrotic syndrome. Etiology is unclear, possible FSGS, membranous nephropathy, minimal change disease. The patient is currently on prednisone, we will continue outpatient dose of 40 mg daily. Continue to treat acute kidney injury as stated above. Continue d iuretic regimen and monitor closely. consider biopsy. likely to be transferred to previous hospital, border machine operator. 3. Anemia. Monitor hemoglobin and hematocrit levels. egd unable to be done until cath done 4. Mineral bone disorder. Monitor calcium and phosphorus levels. 5. Hyperkalemia, resolved. 6. Volume overload. Etiology is multifactorial secondary to acute kidney injury, possible recent nephrotic syndrome, diastolic heart failure, and mineralocorticoid effect of steroids. The patient is grossly volume overloaded, currently diuresing well. Continue Bumex drip. sp add metolazone to augment diuresis as needed. 7. Mineral bone disorder, monitor calcium and phosphorus levels. 8. Possible cirrhosis. Continue to monitor. Continue medical management. 9. Acute gastrointestinal bleed, etiology is unclear, possibly due to gastritis. Continue medical management. Continue proton pump inhibitor. 10. Hypertension. Continue current blood pressure regimen. 11. History of coronary artery disease with PCI. Continue medical management. 12. Non-St elevation myocardial infarction. The patient may have elevated troponins. Continue current medical management. Unfortunately, the patient is unable to have catheterization in this hospital due to non-working catheterization lab. Continue to monitor. Follow up with Cardiology for recommendations. Continue medical management. 13. Systemic inflammatory response syndrome. Continue to monitor. PILAR GO MD Nov 03, 2018 11:10
[2018-11-03] MEDS: OCTREOTIDE 1 MG in DEXTROSE 5% 95 ML IV SCH (11:55)
--- NOTE | 2018-11-03 17:06 | PN ---
Date/Time of Note Date/Time of Note DATE: 11/03/18 TIME: 17:01 Assessment/Plan VTE Prophylaxis Risk score (from Ns)>0 risk: 4 SCD applied (from Ns): Yes SCD contraindicated: low risk/ambulating Pharmacological prophylaxis: NA/contraindicated Pharm contraindication: bleeding Lines/Catheters IV Catheter Type (from [facility]): Peripheral IV Urinary Cath still in place: Yes Reason Cath still needed: urinary retention Assessment/Plan Hospital Course Hospitalist coverage Assessment and plan 1. Gi Bleed; egd planned post cath 2. Ac NSTEMI; cath at [facility] or here once cork slabs sawyer has been fixed. 3. CKD ~2-3.0 w ARF; h/o contrast induced injury. 4. Tobacco abuse 5. Cirrhosis; cryptogenic? 6. Copd/ emphysema? 7. ABL anemia 8. Subclinical hypothyroidism 9. Nonadherence 10. Pre Dm 11. CAD/ pci 05/01 [facility]. hold asa/ plavix due to #1. 12. Nephrotic syndrome? no h/o biopsy; cont steriods. 13. Vit D Def 14. PAT; replace lytes S: no distress. O: vss sr PE no pallor/ jvd reg s1s2 no mrg ctab bs+ nt nd no r r g mild edema Result Diagram: 11/03/18 0550 11/03/18 0550 Results 24hrs Laboratory Tests Test 11/02/18 18:01 11/02/18 20:05 11/03/18 00:32 11/03/18 01:51 Troponin I 1.530 *H 1.170 *H Bedside Glucose 254 H 194 Test 11/03/18 05:50 11/03/18 07:59 11/03/18 11:54 White Blood Count 8.7 # Red Blood Count 3.04 L Hemoglobin 9.0 L Hematocrit 26.4 L Mean Corpuscular 86.8 Volume Mean Corpuscular 29.6 Hemoglobin Mean Corpuscular 34.1 Hemoglobin Concent Red Cell 14.6 H Distribution Width Platelet Count 99 L Mean Platelet Volume 10.0 Immature 0.700 H Granulocytes % Neutrophils % 82.6 H Lymphocytes % 8.3 L Monocytes % 8.3 Eosinophils % 0.0 Basophils % 0.1 Nucleated Red Blood 0.0 Cells % Immature 0.060 H Granulocytes # Neutrophils # 7.2 Lymphocytes # 0.7 L Monocytes # 0.7 Eosinophils # 0.0 Basophils # 0.0 Nucleated Red Blood 0.0 Cells # Sodium Level 138 Potassium Level 3.3 L Chloride Level 90 L Carbon Dioxide Level 36 H Anion Gap 12 Blood Urea Nitrogen 67 H Creatinine 2.60 H Est Glomerular 25 L Filtrat Rate mL/min Glucose Level 154 Calcium Level 7.7 L Phosphorus Level 7.2 H Magnesium Level 1.7 Troponin I 1.060 *H Bedside Glucose 256 H 245 H Exam/Review of Systems Exam Vitals Vital Signs Date Temp Pulse Resp B/P (MAP) Pulse Ox O2 O2 Flow FiO2 Time Delivery Rate 11/03/18 98.2 73 20 96 Room Air 15:20 11/03/18 3.0 08:10 10/31/18 21 11:09 Intake and Output 11/02/18 11/02/18 11/03/18 1515:00 23:00 07:00 IntakeIntake Total 675 ml 510 ml OutputOutput Total 2150 ml 820 ml 3450 ml BalanceBalance -1475 ml -310 ml -3450 ml Results Results 24hrs Laboratory Tests Test 11/02/18 18:01 11/02/18 20:05 11/03/18 00:32 11/03/18 01:51 Troponin I 1.530 *H 1.170 *H Bedside Glucose 254 H 194 Test 11/03/18 05:50 11/03/18 07:59 11/03/18 11:54 White Blood Count 8.7 # Red Blood Count 3.04 L Hemoglobin 9.0 L Hematocrit 26.4 L Mean Corpuscular 86.8 Volume Mean Corpuscular 29.6 Hemoglobin Mean Corpuscular 34.1 Hemoglobin Concent Red Cell 14.6 H Distribution Width Platelet Count 99 L Mean Platelet Volume 10.0 Immature 0.700 H Granulocytes % Neutrophils % 82.6 H Lymphocytes % 8.3 L Monocytes % 8.3 Eosinophils % 0.0 Basophils % 0.1 Nucleated Red Blood 0.0 Cells % Immature 0.060 H Granulocytes # Neutrophils # 7.2 Lymphocytes # 0.7 L Monocytes # 0.7 Eosinophils # 0.0 Basophils # 0.0 Nucleated Red Blood 0.0 Cells # Sodium Level 138 Potassium Level 3.3 L Chloride Level 90 L Carbon Dioxide Level 36 H Anion Gap 12 Blood Urea Nitrogen 67 H Creatinine 2.60 H Est Glomerular 25 L Filtrat Rate mL/min Glucose Level 154 Calcium Level 7.7 L Phosphorus Level 7.2 H Magnesium Level 1.7 Troponin I 1.060 *H Bedside Glucose 256 H 245 H Medications Medication Current Medications IV Flush (NS 3 ml) 3 ml PER PROTOCOL IV ; Start 10/30/18 at 22:30 Ondansetron HCl (Zofran Tab) 4 mg Q6H PRN PO NAUSEA/VOMITING; Start 10/30/18 at 22:30 Ondansetron HCl (Zofran Inj) 4 mg Q6H PRN IV NAUSEA/VOMITING Last administered on 10/31/18 20:56; Admin Dose 4 MG; Start 10/30/18 at 22:30 Acetaminophen (Tylenol Tab) 650 mg Q6H PRN PO .PAIN 1-3 OR TEMP Last administered on 11/01/18 12:47; Admin Dose 650 MG; Start 10/30/18 at 22:30 Acetaminophen/ Hydrocodone Bitart ([place] (5/325)) 1 tab Q6H PRN PO .PAIN 4-6; Start 10/30/18 at 22:30 Bisacodyl (Dulcolax) 5 mg DAILY PRN PO .CONSTIPATION; Start 10/30/18 at 22:30 Octreotide Acetate 1 mg/ Dextrose 100 ml @ 5 mls/hr Q20H IV Last administered on 11/03/18 11:55; Admin Dose 5 MLS/HR; Start 10/31/18 at 04:00 Metoprolol Tartrate (Lopressor) 2.5 mg Q6H PRN IV for systolic above 170 Last administered on 10/31/18 21:43; Admin Dose 2.5 MG; Start 10/31/18 at 04:00 Pantoprazole 80 mg/Sodium Chloride 100 ml @ 10 mls/hr Q10H IVPB Last administered on 11/03/18 14:12; Admin Dose 10 MLS/HR; Start 11/01/18 at 02:00 IV Flush (NS 10 ml) 10 ml PRN PRN IV IV PROTOCOL; Start 10/31/18 at 17:00 Bumetanide 25 mg/ Dextrose 250 ml @ 10 mls/hr Q24H IV Last administered on 11/02/18at 17:52; Admin Dose 10 MLS/HR; Start 10/31/18 at 18:00 Hydralazine HCl (Apresoline) 10 mg Q4H PRN IV systolic > 170 Last administered on 11/02/18 20:14; Admin Dose 10 MG; Start 10/31/18 at 23:00 Hydralazine HCl (Apresoline) 20 mg Q6H PRN IV systolic > 190 ; Start 10/31/18 at 23:00 Prednisone (Prednisone) 40 mg DAILY PO Last administered on 11/03/18 08:02; Admin Dose 40 MG; Start 11/02/18 at 09:00 Atorvastatin Calcium (Lipitor) 80 mg HS PO Last administered on 11/02/18 20:14; Admin Dose 80 MG; Start 11/01/18 at 21:00 Carvedilol (Coreg) 12.5 mg BID PO Last administered on 11/03/18 08:02; Admin Dose 12.5 MG; Start 11/01/18 at 21:00 Labetalol HCl (Labetalol) 10 mg Q4H PRN IV sbp>160 Last administered on 11/03 02:26; Admin Dose 10 MG; Start 11/01/18 at 15:00 Sevelamer Carbonate (Renvela) 800 mg WITH MEALS PO Last administered on 11/03/18at 11:55; Admin Dose 800 MG; Start 11/02/18 at 11:30 Diagnostic Test (Pha) (Accu-Chek) 1 ea 02 XX Last administered on 11/03/18 02:03; Admin Dose 1 EA; Start 11/03/18 at 02:00 Insulin Aspart (Novolog Insulin Pen) NOVOLOG *MODERATE* ALGORITHM WITH MEALS BEDTIME SC ; Start 11/03/18 at 17:55 RADHA CONTRERAS MD Nov 03, 2018 17:06
[2018-11-03] MEDS: BUMETANIDE 25 MG in DEXTROSE 5% 150 ML IV SCH (17:20)
[2018-11-03] MEDS: INSULIN ASPART [NOVOLOG] 3 ML PEN SC SCH ×2 (17:30→22:16)
[2018-11-03] MEDS: POTASSIUM CHLORIDE 20 MEQ POWDER FOR ORAL SOLN PO SCH (17:31)
[2018-11-03] MEDS: ATORVASTATIN 40 MG TAB PO SCH (21:32)
[2018-11-03] MEDS: MAGNESIUM OXIDE 400 MG TAB PO SCH (21:32)
[2018-11-04] VITALS (14 sets, daily range): BP systolic 138–173; BP diastolic 63–82; PULSE 64–77; RESP 18–20
[2018-11-04] MEDS: hydrALAzine 20 MG INJ IV PRN ×3 (00:44→12:10)
[2018-11-04] MEDS: ACCUCHECK AT 2AM (Patients on SS coverage) XX SCH (01:40)
[2018-11-04] MEDS: OCTREOTIDE 1 MG in DEXTROSE 5% 95 ML IV SCH (07:51)
[2018-11-04] MEDS: SEVELAMER CARBONATE 800 MG TABLET PO SCH ×3 (07:53→17:10)
[2018-11-04] MEDS: predniSONE 20 MG TAB PO SCH (07:54)
[2018-11-04] MEDS: MAGNESIUM OXIDE 400 MG TAB PO SCH ×2 (07:54→21:01)
[2018-11-04] MEDS: POTASSIUM CHLORIDE 20 MEQ POWDER FOR ORAL SOLN PO SCH ×2 (07:54→21:06)
--- NOTE | 2018-11-04 08:27 | CONS ---
Consult Date/Type/Reason Admit Date/Time Oct 30, 2018 at 22:13 Initial Consult Date Date/Time of Note DATE: 11/04/18 TIME: 08:21 Subjective ho kidney function worsened after his angiogram in April 2018. Also appears to be an element of poor follow-up and noncompliant Patient with myocardial infarction, severe anemia likely secondary to GI bleed as well as acute kidney injury. the patient had excellent urinary output since admission . No other events noted. No hemoptysis, hematemesis, or hematochezia. labs pending this am. states he doesn't want to be transferred to other hospital and wants to stay in the [facility]. OBJECTIVE: HEENT: Head is normocephalic. NECK: Supple. HEART: Tachycardic. LUNGS: Show diminished breath sounds at the base. ABDOMEN: Soft, nontender to palpation without rebound or guarding. EXTREMITIES: Negative for clubbing, cyanosis. Diffuse anasarca. DERMATOLOGIC: No rashes. MUSCULOSKELETAL: No joint effusion. NEUROLOGIC: No focal deficits. Objective Vitals Vital Signs Date Temp Pulse Resp B/P (MAP) Pulse Ox O2 O2 Flow FiO2 Time Delivery Rate 11/04/18 98.3 71 20 152/70 95 07:33 (97) 11/04/18 Room Air 04:00 11/03/18 3.0 20:00 11/03/18 21 18:41 Intake and Output 11/03/18 11/03/18 11/04/18 1515:00 23:00 07:00 IntakeIntake Total 920 ml 900 ml 580 ml OutputOutput Total 3050 ml 1850 ml 1900 ml BalanceBalance -2130 ml -950 ml -1320 ml Results/Medications Result Diagram: 11/03/18 0550 11/03/18 0550 Results 24 hrs Laboratory Tests Test 11/03/18 11:54 11/03/18 17:22 11/03/18 21:31 11/04/18 01:37 Bedside Glucose 245 H 228 H 240 H 183 Test 11/04/18 07:53 Bedside Glucose 154 Home Meds Reported Medications Furosemide* (Furosemide*) 20 Mg Tablet, 20 MG PO for EVERY OTHER DAY for 30 Days TAKE ONE TABLET BY MOUTH EVERY OTHER DAY 10/31/18 Calcium Carbonate/Vitamin D3 (OYSTER SHELL 500 MG + VIT D TB) 1 Each Tablet, 1 TAB PO BID TAKE ONE TABLET BY MOUTH 2 TIMES A DAY 10/31/18 Carvedilol* (Carvedilol*) 6.25 Mg Tablet, 6.25 MG PO Q12H for 30 Days TAKE 1 TAB BY MOUTH EVERY 12 HOURS HOLD IF HEART RATE UNDER 60 OR SBP UNDER 100 10/31/18 Famotidine* (Famotidine*) 20 Mg Tablet, 20 MG PO DAILY for 30 Days, #30 10/31/18 Prednisone* (Prednisone*) 20 Mg Tab, 20 MG PO DAILY 10/31/18 Nifedipine* (Nifedipine ER*) 90 Mg Tablet.er, 90 MG PO DAILY for 30 Days, #30 10/31/18 Discontinued Reported Medications Aspirin* (Aspirin* EC) 81 Mg Tablet.dr, 81 MG PO DAILY for 30 Days, #30 10/31/18 Clopidogrel Bisulfate (Clopidogrel) 75 Mg Tablet, 75 MG PO DAILY 10/31/18 [No Meds] No Conflict Check 03/09/15 Medications Current Medications IV Flush (NS 3 ml) 3 ml PER PROTOCOL IV ; Start 10/30/18 at 22:30 Ondansetron HCl (Zofran Tab) 4 mg Q6H PRN PO NAUSEA/VOMITING; Start 10/30/18 at 22:30 Ondansetron HCl (Zofran Inj) 4 mg Q6H PRN IV NAUSEA/VOMITING Last administered on 10/31/18at 20:56; Admin Dose 4 MG; Start 10/30/18 at 22:30 Acetaminophen (Tylenol Tab) 650 mg Q6H PRN PO .PAIN 1-3 OR TEMP Last administered on 11/01/18at 12:47; Admin Dose 650 MG; Start 10/30/18 at 22:30 Acetaminophen/ Hydrocodone Bitart ([place] (5/325)) 1 tab Q6H PRN PO .PAIN 4-6; Start 10/30/18 at 22:30 Bisacodyl (Dulcolax) 5 mg DAILY PRN PO .CONSTIPATION; Start 10/30/18 at 22:30 Octreotide Acetate 1 mg/ Dextrose 100 ml @ 5 mls/hr Q20H IV Last administered on 11/03/18at 11:55; Admin Dose 5 MLS/HR; Start 10/31/18 at 04:00 Metoprolol Tartrate (Lopressor) 2.5 mg Q6H PRN IV for systolic above 170 Last administered on 10/31/18 21:43; Admin Dose 2.5 MG; Start 10/31/18 at 04:00 Pantoprazole 80 mg/Sodium Chloride 100 ml @ 10 mls/hr Q10H IVPB Last administe red on 11/03/18 23:46; Admin Dose 10 MLS/HR; Start 11/01/18 at 02:00 IV Flush (NS 10 ml) 10 ml PRN PRN IV IV PROTOCOL; Start 10/31/18 at 17:00 Bumetanide 25 mg/ Dextrose 250 ml @ 10 mls/hr Q24H IV Last administered on 11/03/18 17:20; Admin Dose 10 MLS/HR; Start 10/31/18 at 18:00 Hydralazine HCl (Apresoline) 10 mg Q4H PRN IV systolic > 170 Last administered on 11/04/18 04:41; Admin Dose 10 MG; Start 10/31/18 at 23:00 Hydralazine HCl (Apresoline) 20 mg Q6H PRN IV systolic > 190 ; Start 10/31/18 at 23:00 Prednisone (Prednisone) 40 mg DAILY PO Last administered on 11/03/18 08:02; Admin Dose 40 MG; Start 11/02/18 at 09:00 Atorvastatin Calcium (Lipitor) 80 mg HS PO Last administered on 11/03/18 21:32; Admin Dose 80 MG; Start 11/01/18 at 21:00 Carvedilol (Coreg) 12.5 mg BID PO Last administered on 11/03/18 21:32; Admin Dose 12.5 MG; Start 11/01/18 at 21:00 Labetalol HCl (Labetalol) 10 mg Q4H PRN IV sbp>160 Last administered on 11/03/18 02:26; Admin Dose 10 MG; Start 11/01/18 at 15:00 Sevelamer Carbonate (Renvela) 800 mg WITH MEALS PO Last administered on 11/03/18 17:20; Admin Dose 800 MG; Start 11/02/18 at 11:30 Diagnostic Test (Pha) (Accu-Chek) 1 ea 02 XX Last administered on 11/04/18at 01:40; Admin Dose 1 EA; Start 11/03/18 at 02:00 Insulin Aspart (Novolog Insulin Pen) NOVOLOG *MODERATE* ALGORITHM WITH MEALS BEDTIME SC Last administered on 11/03/18at 22:16; Admin Dose 2 UNIT; Start 11/03/18 at 17:55 Potassium Chloride (Potassium Chloride Pwd/Soln) 40 meq DAILY PO Last administered on 11/03/18at 17:31; Admin Dose 40 MEQ; Start 11/03/18 at 17:30 Magnesium Oxide (Mag-Ox 400) 400 mg BID PO Last administered on 11/03/18at 21:32; Admin Dose 400 MG; Start 11/03/18 at 21:00 Assessment/Plan Hospital Course (Demo Recall) 1. Nonoliguric acute kidney injury on top of chronic kidney disease with previous baseline creatinine of approximately 2 to 3 mg/dL. Etiology of current acute kidney injury is likely secondary to hemodynamics, acute tubular necrosis. 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 discussed with the patient's primary superintendent automotive, Dr. Luo, who stated the patient was on empiric steroids for possible primary nephrotic syndrome. The patient was not able to obtain a biopsy. Currently, during this hospital course, the patient has had an initial decline, but stabilization of renal function in last 48 to 72 hours. At this point, we would continue current medical management. C ontinue diuretic therapy. Continue supportive care, renally dose all medications and avoid nephrotoxins. 2. Chronic kidney disease with presumed nephrotic syndrome. Etiology is unclear, possible FSGS, membranous nephropathy, minimal change disease. The patient is currently on prednisone, we will continue outpatient dose of 40 mg daily. Continue to treat acute kidney injury as stated above. Continue diuretic regimen and monitor closely. consider biopsy. likely to be transferred to previous hospital/ superintendent automotive. 3. Anemia. Monitor hemoglobin and hematocrit levels. egd unable to be done until cath done 4. Mineral bone disorder. Monitor calcium and phosphorus levels. 5. Hyperkalemia, resolved. 6. Volume overload. Etiology is multifactorial secondary to acute kidney injury, possible recent nephrotic syndrome, diastolic heart failure, and mineralocorticoid effect of steroids. The patient is grossly volume overloaded, currently diuresing well. Continue Bumex drip. sp add metolazone to augment diuresis as needed. 7. Mineral bone disorder, monitor calcium and phosphorus levels. 8. Possible cirrhosis. Continue to monitor. Continue medical management. 9. Acute gastrointestinal bleed, etiology is unclear, possibly due to gastritis. Continue medical management. Continue proton pump inhibitor. on octreotide 10. Hypertension. Continue current blood pressure regimen. 11. History of coronary artery disease with PCI. Continue medical management. 12. Non-St elevation myocardial infarction. The patient may have elevated troponins. Continue current medical management. Unfortunately, the patient is unable to have catheterization in this hospital due to non-working catheterization lab. Continue to monitor. Follow up with Cardiology for recommendations. Continue medical management. 13. Systemic inflammatory response syndrome. Continue to monitor. PILAR GO MD Nov 04, 2018 08:27
[2018-11-04] MEDS: INSULIN ASPART [NOVOLOG] 3 ML PEN SC SCH ×4 (09:08→21:48)
[2018-11-04] MEDS ORDERED: BUMETANIDE 6 MG in DEXTROSE 5% 36 ML IV ONE (09:30)
[2018-11-04] MEDS: PANTOPRAZOLE IV 80 MG in SOD CHLORIDE 0.9% 100 ML IVPB SCH ×2 (10:53→21:01)
--- NOTE | 2018-11-04 13:59 | PN ---
Date/Time of Note Date/Time of Note DATE: 11/04/18 TIME: 13:57 Assessment/Plan VTE Prophylaxis Risk score (from Ns)>0 risk: 6 SCD applied (from Ns): Yes SCD contraindicated: low risk/ambulating Pharmacological prophylaxis: NA/contraindicated Pharm contraindication: bleeding Lines/Catheters IV [facility]from [facility] Peripheral IV Urinary Cath still in place: Yes Reason Cath still needed: urinary retention Assessment/Plan Hospital Course Hospitalist coverage Assessment and plan 1. Gi Bleed; egd planned post cath 2. 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 [facility] if [facility]. 3. CKD ~2-3.0 w ARF; suspected h/o contrast induced injury. 4. Tobacco abuse 5. Cirrhosis; cryptogenic? 6. Copd/ emphysema? 7. ABL anemia 8. Subclinical hypothyroidism 9. Nonadherence 10. Pre Dm 11. CAD/ pci 05/01 [facility]. hold asa/ plavix due to #1. Risk of stenosis discussed with patient. I advised him to take the first opportunity feasible for cath. 12. Nephrotic syndrome? no h/o biopsy; cont steriods. 13. Vit D Def 14. PAT; replace lytes S: 11/03 no distress. 11/04 no distress. O: vss sr PE no pallor/ jvd reg s1s2 no mrg ctab bs+ nt nd no r r g mild edema Result Diagram: 11/04/18 1152 11/04/18 1152 Results 24hrs Laboratory Tests Test 11/03/18 17:22 11/03/18 21:31 11/04/18 01:37 11/04/18 07:53 Bedside Glucose 228 H 240 H 183 154 Test 11/04/18 11:52 11/04/18 12:07 White Blood Count 10.9 #H Red Blood Count 3.16 L Hemoglobin 9.3 L Hematocrit 27.8 L Mean Corpuscular 88.0 Volume Mean Corpuscular 29.4 Hemoglobin Mean Corpuscular 33.5 Hemoglobin Concent Red Cell 15.3 H Distribution Width Platelet Count 157 # Mean Platelet Volume 9.9 Immature 0.600 H Granulocytes % Neutrophils % 83.2 H Lymphocytes % 7.3 L Monocytes % 8.2 Eosinophils % 0.6 Basophils % 0.1 Nucleated Red Blood 0.0 Cells % Immature 0.070 H Granulocytes # Neutrophils # 9.0 H Lymphocytes # 0.8 Monocytes # 0.9 Eosinophils # 0.1 Basophils # 0.0 Nucleated Red Blood 0.0 Cells # Sodium Level 133 L Potassium Level 3.4 L Chloride Level 85 L Carbon Dioxide Level Anion Gap 8 Blood Urea Nitrogen 75 H Creatinine 2.33 H Est Glomerular 29 L Filtrat Rate mL/min Glucose Level 147 Calcium Level 7.3 L Total Bilirubin 0.3 Direct Bilirubin 0.00 Indirect Bilirubin 0.3 Aspartate Amino 18 Transf (AST/SGOT) Alanine 47 Aminotransferase (AL T/SGPT) Alkaline Phosphatase 36 L Total Protein 5.1 L Albumin 2.8 L Globulin 2.30 Albumin/Globulin 1.21 Ratio Bedside Glucose 165 Exam/Review of Systems Exam Vitals Vital Signs Date Temp Pulse Resp B/P (MAP) Pulse Ox O2 O2 Flow FiO2 Time Delivery Rate 11/04/18 64 12:00 11/04/18 98.3 20 162/77 91 11:32 (105) 11/04/18 Room Air 04:00 11/03/18 3.0 20:00 11/03/18 21 18:41 Intake and Output 11/03/18 11/03/18 11/04/18 1515:00 23:00 07:00 IntakeIntake Total 920 ml 900 ml 580 ml OutputOutput Total 3050 ml 1850 ml 1900 ml BalanceBalance -2130 ml -950 ml -1320 ml Results Results 24hrs Laboratory Tests Test 11/03/18 17:22 11/03/18 21:31 11/04/18 01:37 11/04/18 07:53 Bedside Glucose 228 H 240 H 183 154 Test 11/04/18 11:52 11/04/18 12:07 White Blood Count 10.9 #H Red Blood Count 3.16 L Hemoglobin 9.3 L Hematocrit 27.8 L Mean Corpuscular 88.0 Volume Mean Corpuscular 29.4 Hemoglobin Mean Corpuscular 33.5 Hemoglobin Concent Red Cell 15.3 H Distribution Width Platelet Count 157 # Mean Platelet Volume 9.9 Immature 0.600 H Granulocytes % Neutrophils % 83.2 H Lymphocytes % 7.3 L Monocytes % 8.2 Eosinophils % 0.6 Basophils % 0.1 Nucleated Red Blood 0.0 Cells % Immature 0.070 H Granulocytes # Neutrophils # 9.0 H Lymphocytes # 0.8 Monocytes # 0.9 Eosinophils # 0.1 Basophils # 0.0 Nucleated Red Blood 0.0 Cells # Sodium Level 133 L Potassium Level 3.4 L Chloride Level 85 L Carbon Dioxide Level Anion Gap 8 Blood Urea Nitrogen 75 H Creatinine 2.33 H Est Glomerular 29 L Filtrat Rate mL/min Glucose Level 147 Calcium Level 7.3 L Total Bilirubin 0.3 Direct Bilirubin 0.00 Indirect Bilirubin 0.3 Aspartate Amino 18 Transf (AST/SGOT) Alanine 47 Aminotransferase (AL T/SGPT) Alkaline Phosphatase 36 L Total Protein 5.1 L Albumin 2.8 L Globulin 2.30 Albumin/Globulin 1.21 Ratio Bedside Glucose 165 Medications Medication Current Medications IV Flush (NS 3 ml) 3 ml PER PROTOCOL IV ; Start 10/30/18 at 22:30 Ondansetron HCl (Zofran Tab) 4 mg Q6H PRN PO NAUSEA/VOMITING; Start 10/30/18 at 22:30 Ondansetron HCl (Zofran Inj) 4 mg Q6H PRN IV NAUSEA/VOMITING Last administered on 10/31/18at 20:56; Admin Dose 4 MG; Start 10/30/18 at 22:30 Acetaminophen (Tylenol Tab) 650 mg Q6H PRN PO .PAIN 1-3 OR TEMP Last administered on 11/01/18at 12:47; Admin Dose 650 MG; Start 10/30/18 at 22:30 Acetaminophen/ Hydrocodone Bitart ([place] (5/325)) 1 tab Q6H PRN PO .PAIN 4-6; Start 10/30/18 at 22:30 Bisacodyl (Dulcolax) 5 mg DAILY PRN PO .CONSTIPATION; Start 10/30/18 at 22:30 Octreotide Acetate 1 mg/ Dextrose 100 ml @ 5 mls/hr Q20H IV Last administered on 11/04/18at 07:51; Admin Dose 5 MLS/HR; Start 10/31/18 at 04:00 Metoprolol Tartrate (Lopressor) 2.5 mg Q6H PRN IV for systolic above 170 Last administered on 10/31/18 21:43; Admin Dose 2.5 MG; Start 10/31/18 at 04:00 Pantoprazole 80 mg/Sodium Chloride 100 ml @ 10 mls/hr Q10H IVPB Last administered on 11/04/18 10:53; Admin Dose 10 MLS/HR; Start 11/01/18 at 02:00 IV Flush (NS 10 ml) 10 ml PRN PRN IV IV PROTOCOL; Start 10/31/18 at 17:00 Hydralazine HCl (Apresoline) 10 mg Q4H PRN IV systolic > 170 Last administered on 11/04/18 12:10; Admin Dose 10 MG; Start 10/31/18 at 23:00 Hydralazine HCl (Apresoline) 20 mg Q6H PRN IV systolic > 190 ; Start 10/31/18 at 23:00 Prednisone (Prednisone) 40 mg DAILY PO Last administered on 11/04/18 07:54; Admin Dose 40 MG; Start 11/02/18 at 09:00 Atorvastatin Calcium (Lipitor) 80 mg HS PO Last administered on 11/03/18 21:32; Admin Dose 80 MG; Start 11/01/18 at 21:00 Carvedilol (Coreg) 12.5 mg BID PO Last administered on 11/04/18 07:54; Admin Dose 12.5 MG; Start 11/01/18 at 21:00 Labetalol HCl (Labetalol) 10 mg Q4H PRN IV sbp>160 Last administered on 11/03/18 02:26; Admin Dose 10 MG; Start 11/01/18 at 15:00 Sevelamer Carbonate (Renvela) 800 mg WITH MEALS PO Last administered on 11/04/18 12:10; Admin Dose 800 MG; Start 11/02/18 at 11:30 Diagnostic Test (Pha) (Accu-Chek) 1 ea 02 XX Last administered on 11/04/18 01:40; Admin Dose 1 EA; Start 11/03/18 at 02:00 Insulin Aspart (Novolog Insulin Pen) NOVOLOG *MODERATE* ALGORITHM WITH MEALS BEDTIME SC Last administered on 11/04/18 12:27; Admin Dose 2 UNIT; Start 11/03/18 at 17:55 Potassium Chloride (Potassium Chloride Pwd/Soln) 40 meq DAILY PO Last administered on 11/04/18 07:54; Admin Dose 40 MEQ; Start 11/03/18 at 17:30 Magnesium Oxide (Mag-Ox 400) 400 mg BID PO Last administered on 6/23/19at 07:54; Admin Dose 400 MG; Start 11/03/18 at 21:00 Bumetanide 6 mg/ Dextrose 60 ml @ 10 mls/hr Q6H ONCE IV Last administered on 11/04/18at 10:54; Admin Dose 10 MLS/HR; Start 11/04/18 at 09:30; Stop 11/04/18 at 15:29 Isosorbide Mononitrate (Imdur) 30 mg DAILY PO ; Start 11/04/18 at 14:00 RADHA CONTRERAS MD Nov 04, 2018 13:59
[2018-11-04] MEDS: ISOSORBIDE MONONITRATE(SR)30 MG TAB PO SCH (15:01)
[2018-11-04] MEDS: ATORVASTATIN 40 MG TAB PO SCH (21:01)
[2018-11-05] VITALS (11 sets, daily range): BP systolic 131–167; BP diastolic 70–87; PULSE 66–87; RESP 18–20
[2018-11-05] MEDS: hydrALAzine 20 MG INJ IV PRN (00:15)
[2018-11-05] MEDS: ACCUCHECK AT 2AM (Patients on SS coverage) XX SCH (02:28)
[2018-11-05] MEDS: OCTREOTIDE 1 MG in DEXTROSE 5% 95 ML IV SCH (03:04)
[2018-11-05] MEDS: PANTOPRAZOLE IV 80 MG in SOD CHLORIDE 0.9% 100 ML IVPB SCH ×2 (05:41→13:55)
[2018-11-05] MEDS: INSULIN ASPART [NOVOLOG] 3 ML PEN SC SCH ×4 (07:47→21:25)
[2018-11-05] MEDS ORDERED: POTASSIUM CHLORIDE (SR) 20 MEQ TAB PO STA (08:06)
[2018-11-05] MEDS ORDERED: ACETAZOLAMIDE 500 MG INJ IV ONE (08:30)
[2018-11-05] MEDS: predniSONE 20 MG TAB PO SCH (08:36)
[2018-11-05] MEDS: ISOSORBIDE MONONITRATE(SR)30 MG TAB PO SCH (08:36)
[2018-11-05] MEDS: SEVELAMER CARBONATE 800 MG TABLET PO SCH ×3 (08:36→17:51)
[2018-11-05] MEDS: MAGNESIUM OXIDE 400 MG TAB PO SCH ×2 (08:37→21:13)
[2018-11-05] MEDS: POTASSIUM CHLORIDE 20 MEQ POWDER FOR ORAL SOLN PO SCH ×2 (08:37→21:14)
--- NOTE | 2018-11-05 08:43 | PN ---
DATE: 11/05/2018 SUBJECTIVE: The patient is clinically improving. Edema is markedly improved. No other events noted . No hemoptysis, hematemesis. OBJECTIVE: VITAL SIGNS: Blood pressure is 163/87, respiration 18, pulse 87, temperature 97.5. HEENT: Head is normocephalic. NECK: Supple. HEART: Regular rate. LUNGS: Show diminished breath sounds at the base. ABDOMEN: Soft, nontender to palpation without rebound or guarding. EXTREMITIES: Negative for clubbing, cyanosis. Positive edema, improved. DERMATOLOGIC: No rashes. MUSCULOSKELETAL: No joint effusion. NEUROLOGIC: No change in exam. MEDICATIONS: Have been reviewed. LABORATORY DATA: Has been reviewed. IMAGING STUDIES: Have been reviewed. ASSESSMENT AND PLAN: 1. Nonoliguric acute kidney injury on top of chronic kidney disease with baseline creatinine approxi mately 2 to 3 mg/dL. Etiology of acute kidney injury is secondary to hemodynamics, acute tubular nec rosis with possible underlying primary glomerulopathy. The patient's renal function is fluctuating, but overall stable. At this point, would continue current treatment plan, supportive care, renally d ose all meds, continue intermittent diuretic therapy. Continue prednisone, monitor closely. 2. 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 Naomie ology is unclear, possible FSGS, membranous nephropathy, minimal change disease. The patient was sta rted on empiric prednisone by his primary cartridge feeder in outpatient setting. Currently, the patient is on prednisone 40 mg daily. The patient had significant improvement in proteinuria, is currently approximately 1.8 grams per gram of creatinine with improvement from previous proteinuria of over 10 grams per gram of creatinine. At this point, we will continue to treat acute kidney injury as stated above. Continue prednisone, monitor closely. 3. Volume overload, diffuse anasarca. Etiology is secondary to acute kidney injury, possible nephro tic syndrome, diastolic heart failure, steroids. The patient is clinically improving. Continue curr ent diuretic regimen. We will hold Bumex. Will give the patient a dose of Diamox as he is becoming alkalotic, and will monitor closely. 4. Metabolic alkalosis likely secondary to diuretic therapy. The patient will be given a dose of Di amox. Monitor closely. 5. Anemia. Monitor hemoglobin and hematocrit levels. Follow up with GI. 6. Mineral bone disorder. Monitor calcium and phosphorus levels. 7. Hyperkalemia, resolved. 8. Possible cirrhosis. Continue to monitor. 9. Acute gastrointestinal bleed. Etiology is unclear, possibly due to gastritis. Continue proton p ump inhibitor and octreotide. Follow up with GI. 10. Hypertension. Continue current blood pressure regimen. 11. History of coronary artery disease with PCI. Continue medical management. 12. Non-ST elevation myocardial infarction. Patient noted to have elevated troponins. Continue med ical management. Follow up with cardiology. 13. Systemic inflammatory response syndrome. Continue to monitor. Dictated By: ARDEN BECKHAM DO NR/NTS Conf#: [id number] DID#: [id number] CC: BONNIE LEACH MD;*EndCC*
[2018-11-05] MEDS: CLOPIDOGREL 75 MG TAB PO SCH (17:51)
[2018-11-05] MEDS: ASPIRIN (EC) 81 MG TAB PO SCH (17:51)
--- NOTE | 2018-11-05 18:40 | PN ---
Date/Time of Note Date/Time of Note DATE: 11/05/18 TIME: 18:36 Assessment/Plan VTE Prophylaxis Risk score (from Ns)>0 risk: 2 SCD applied (from Ns): Yes SCD contraindicated: low risk/ambulating Pharmacological prophylaxis: NA/contraindicated Pharm contraindication: low risk/ambulating Lines/Catheters IV Catheter Type (from [facility]): PICC Line Central line still needed: Yes Urinary Cath still in place: Yes Reason Cath still needed: urinary retention Assessment/Plan Hospital Course Hospitalist coverage Assessment and plan 1. Gi Bleed; EGD planned down the line when stable 2. Ac NSTEMI; planned cath at [facility]. patient refused transfer. Likely anemia induced; therefore will try plavix & conservative mngmnt and cancel cath option. 3. CKD ~2-3.0 w ARF; suspected h/o contrast induced injury. cath risk noted. 4. Tobacco abuse 5. Cirrhosis; cryptogenic? 6. Copd/ emphysema? 7. ABL anemia 8. Subclinical hypothyroidism 9. Nonadherence 10. Pre Dm 11. CAD/ pci 05/01 [facility]. held asa/ plavix due to #1. Will restart plavix. if tolerable over the next 48hrs, dc home. 12. Nephrotic syndrome? no h/o biopsy; cont steriods. 13. Vit D Def 14. PAT; replace lytes S: 11/03 no distress. 11/04 no distress. 11/05: no distress, wants to go home. O: vss sr PE no pallor/ jvd reg s1s2 no mrg ctab bs+ nt nd no r r g mild edema Result Diagram: 11/05/1845 11/05/18 0545 Results 24hrs Laboratory Tests Test 11/04/18 21:32 11/05/18 01:16 11/05/18 05:45 11/05/18 07:42 Bedside Glucose 230 H 168 142 White Blood Count 10.7 Red Blood Count 3.15 L Hemoglobin 9.2 L Hematocrit 28.0 L Mean Corpuscular 88.9 Volume Mean Corpuscular 29.2 Hemoglobin Mean Corpuscular 32.9 Hemoglobin Concent Red Cell 15.0 H Distribution Width Platelet Count 175 Mean Platelet Volume 9.7 Immature 0.500 H Granulocytes % Neutrophils % 74.7 Lymphocytes % 13.0 L Monocytes % 11.7 H Eosinophils % 0.1 Basophils % 0.0 Nucleated Red Blood 0.0 Cells % Immature 0.050 H Granulocytes # Neutrophils # 8.0 H Lymphocytes # 1.4 Monocytes # 1.3 H Eosinophils # 0.0 Basophils # 0.0 Nucleated Red Blood 0.0 Cells # Sodium Level 136 Potassium Level 3.5 Chloride Level 89 L Carbon Dioxide Level 37 H Anion Gap 10 Blood Urea Nitrogen 81 H Creatinine 2.35 H Est Glomerular 29 L Filtrat Rate mL/min Glucose Level 136 Calcium Level 7.1 L Phosphorus Level 4.9 # Magnesium Level 2.0 Total Bilirubin 0.5 Direct Bilirubin 0.00 Indirect Bilirubin 0.5 Aspartate Amino 20 Transf (AST/SGOT) Alanine 42 Aminotransferase (AL T/SGPT) Alkaline Phosphatase 40 L Total Protein 4.9 L Albumin 2.7 L Globulin 2.20 Albumin/Globulin 1.22 Ratio Test 11/05/18 12:06 11/05/18 17:18 Bedside Glucose 221 H 261 H Exam/Review of Systems Exam Vitals Vital Signs Date Temp Pulse Resp B/P (MAP) Pulse Ox O2 O2 Flow FiO2 Time Delivery Rate 11/05/18 98.6 67 18 131/76 98 Room Air 15:09 (94) 11/04/18 3.0 19:56 11/03/18 21 18:41 Intake and Output 11/04/18 11/04/18 11/05/18 1515:00 23:00 07:00 IntakeIntake Total 440 ml 470 ml 580 ml OutputOutput Total 2250 ml 400 ml 1400 ml BalanceBalance -1810 ml 70 ml -820 ml Results Results 24hrs Laboratory Tests Test 11/04/18 21:32 11/05/18 01:16 11/05/18 05:45 11/05/18 07:42 Bedside Glucose 230 H 168 142 White Blood Count 10.7 Red Blood Count 3.15 L Hemoglobin 9.2 L Hematocrit 28.0 L Mean Corpuscular 88.9 Volume Mean Corpuscular 29.2 Hemoglobin Mean Corpuscular 32.9 Hemoglobin Concent Red Cell 15.0 H Distribution Width Platelet Count 175 Mean Platelet Volume 9.7 Immature 0.500 H Granulocytes % Neutrophils % 74.7 Lymphocytes % 13.0 L Monocytes % 11.7 H Eosinophils % 0.1 Basophils % 0.0 Nucleated Red Blood 0.0 Cells % Immature 0.050 H Granulocytes # Neutrophils # 8.0 H Lymphocytes # 1.4 Monocytes # 1.3 H Eosinophils # 0.0 Basophils # 0.0 Nucleated Red Blood 0.0 Cells # Sodium Level 136 Potassium Level 3.5 Chloride Level 89 L Carbon Dioxide Level 37 H Anion Gap 10 Blood Urea Nitrogen 81 H Creatinine 2.35 H Est Glomerular 29 L Filtrat Rate mL/min Glucose Level 136 Calcium Level 7.1 L Phosphorus Level 4.9 # Magnesium Level 2.0 Total Bilirubin 0.5 Direct Bilirubin 0.00 Indirect Bilirubin 0.5 Aspartate Amino 20 Transf (AST/SGOT) Alanine 42 Aminotransferase (AL T/SGPT) Alkaline Phosphatase 40 L Total Protein 4.9 L Albumin 2.7 L Globulin 2.20 Albumin/Globulin 1.22 Ratio Test 11/05/18 12:06 11/05/18 17:18 Bedside Glucose 221 H 261 H Medications Medication Current Medications IV Flush (NS 3 ml) 3 ml PER PROTOCOL IV ; Start 10/30/18 at 22:30 Ondansetron HCl (Zofran Tab) 4 mg Q6H PRN PO NAUSEA/VOMITING; Start 10/30/18 at 22:30 Ondansetron HCl (Zofran Inj) 4 mg Q6H PRN IV NAUSEA/VOMITING Last administered on 10/31/18at 20:56; Admin Dose 4 MG; Start 10/30/18 at 22:30 Acetaminophen (Tylenol Tab) 650 mg Q6H PRN PO .PAIN 1-3 OR TEMP Last administered on 11/01/18at 12:47; Admin Dose 650 MG; Start 10/30/18 at 22:30 Acetaminophen/ Hydrocodone Bitart ([place] (5/325)) 1 tab Q6H PRN PO .PAIN 4-6; Start 10/30/18 at 22:30 Bisacodyl (Dulcolax) 5 mg DAILY PRN PO .CONSTIPATION; Start 10/30/18 at 22:30 Octreotide Acetate 1 mg/ Dextrose 100 ml @ 5 mls/hr Q20H IV Last administered on 11/05/18at 03:04; Admin Dose 5 MLS/HR; Start 10/31/18 at 04:00 Metoprolol Tartrate (Lopressor) 2.5 mg Q6H PRN IV for systolic above 170 Last administered on 10/31/18at 21:43; Admin Dose 2.5 MG; Start 10/31/18 at 04:00 Pantoprazole 80 mg/Sodium Chloride 100 ml @ 10 mls/hr Q10H IVPB Last administered on 11/05/18 13:55; Admin Dose 10 MLS/HR; Start 11/01/18 at 02:00 IV Flush (NS 10 ml) 10 ml PRN PRN IV IV PROTOCOL; Start 10/31/18 at 17:00 Hydralazine HCl (Apresoline) 10 mg Q4H PRN IV systolic > 170 Last administered on 11/05/18 00:15; Admin Dose 10 MG; Start 10/31/18 at 23:00 Hydralazine HCl (Apresoline) 20 mg Q6H PRN IV systolic > 190 ; Start 10/31/18 at 23:00 Prednisone (Prednisone) 40 mg DAILY PO Last administered on 11/05/18 08:36; Admin Dose 40 MG; Start 11/02/18 at 09:00 Atorvastatin Calcium (Lipitor) 80 mg HS PO Last administered on 11/04/18 21:01; Admin Dose 80 MG; Start 11/01/18 at 21:00 Carvedilol (Coreg) 12.5 mg BID PO Last administered on 11/05/18 08:36; Admin Dose 12.5 MG; Start 11/01/18 at 21:00 Labetalol HCl (Labetalol) 10 mg Q4H PRN IV sbp>160 Last administered on 11/03/18 02:26; Admin Dose 10 MG; Start 11/01/18 at 15:00 Sevelamer Carbonate (Renvela) 800 mg WITH MEALS PO Last administered on 11/05/18 17:51; Admin Dose 800 MG; Start 11/02/18 at 11:30 Diagnostic Test (Pha) (Accu-Chek) 1 ea 02 XX Last administered on 11/05/18 02:28; Admin Dose 1 EA; Start 11/03/18 at 02:00 Insulin Aspart (Novolog Insulin Pen) NOVOLOG *MODERATE* ALGORITHM WITH MEALS BEDTIME SC Last administered on 11/05/18 17:51; Admin Dose 8 UNIT; Start 11/03/18 at 17:55 Magnesium Oxide (Mag-Ox 400) 400 mg BID PO Last administered on 11/05/18 08:37; Admin Dose 400 MG; Start 11/03/18 at 21:00 Isosorbide Mononitrate (Imdur) 30 mg DAILY PO Last administered on 11/05/18at 08:36; Admin Dose 30 MG; Start 11/04/18 at 14:00 Potassium Chloride (Potassium Chloride Pwd/Soln) 40 meq BID PO Last administered on 11/05/18at 08:37; Admin Dose 40 MEQ; Start 11/04/18 at 21:00 Clopidogrel Bisulfate (plaVIX) 75 mg DAILY PO Last administered on 11/05/18at 17:51; Admin Dose 75 MG; Start 11/05/18 at 17:30 Aspirin (Halfprin) 81 mg DAILY PO Last administered on 11/05/18at 17:51; Admin Dose 81 MG; Start 11/05/18 at 17:30 Pantoprazole (Protonix Tab) 40 mg DAILY@06 PO ; Start 11/06/18 at 06:00 RADHA CONTRERAS MD Nov 05, 2018 18:40
[2018-11-05] MEDS: ATORVASTATIN 40 MG TAB PO SCH (21:13)
--- NOTE | 2018-11-05 22:47 | CONS ---
Assessment/Plan Assessment/Plan Hospital Course (Demo Recall) Non-ST elevation myocardial infarction Left ventricular ejection fraction 55% Acute kidney injury Volume overload Acute blood loss anemia CAD with history of PCI April 2018 Hypertension Dyslipidemia Tobacco use Patient denies any further chest pain or shortness of breath. Troponins have been trending down Hemoglobin has remained stable Myocardial infarction likely secondary to severe anemia. Most recent ECG with no significant ischemic abnormalities and troponins have been trending down. In discussion with patient regarding further GI endoscopy, he is currently refusing. Would restart his aspirin and Plavix and monitor his hemoglobin to see if any recurrent bleeding. Continue carvedilol and titrate as heart rate and blood pressure permits, continue statin therapy Plan of care discussed with primary hospitalist Consultation Date/Type/Reason Admit Date/Time Oct 30, 2018 at 22:13 Initial Consult Date Type of Consult Cardiology Date/Time of Note DATE: 11/05/18 TIME: 22:44 24 HR Interval Summary Free Text/Dictation denies sob,cp,palp Exam/Review of Systems Vital Signs Vitals Vital Signs Date Temp Pulse Resp B/P (MAP) Pulse Ox O2 O2 Flow FiO2 Time Delivery Rate 11/05/18 98.4 74 20 140/71 93 20:00 (94) 11/05/18 Room Air 15:09 11/04/18 3.0 19:56 11/03/18 21 18:41 Intake and Output 11/04/18 11/04/18 11/05/18 1414:59 22:59 06:59 IntakeIntake Total 440 ml 470 ml 580 ml OutputOutput Total 2250 ml 400 ml 1400 ml BalanceBalance -1810 ml 70 ml -820 ml Exam Constitutional: alert, oriented Head: normocephalic Respiratory: other (course bs, no wheeze) Cardiovascular: regular rate and rhythm (s1s2) Gastrointestinal: soft, non-tender, bowel sounds Extremities: edema Labs Result Diagram: 11/05/18 0545 11/05/18 0545 Results 24hrs Laboratory Tests Test 11/05/18 01:16 11/05/18 05:45 11/05/18 07:42 11/05/18 12:06 Bedside Glucose 168 142 221 H White Blood Count 10.7 Red Blood Count 3.15 L Hemoglobin 9.2 L Hematocrit 28.0 L Mean Corpuscular 88.9 Volume Mean Corpuscular 29.2 Hemoglobin Mean Corpuscular 32.9 Hemoglobin Concent Red Cell 15.0 H Distribution Width Platelet Count 175 Mean Platelet Volume 9.7 Immature 0.500 H Granulocytes % Neutrophils % 74.7 Lymphocytes % 13.0 L Monocytes % 11.7 H Eosinophils % 0.1 Basophils % 0.0 Nucleated Red Blood 0.0 Cells % Immature 0.050 H Granulocytes # Neutrophils # 8.0 H Lymphocytes # 1.4 Monocytes # 1.3 H Eosinophils # 0.0 Basophils # 0.0 Nucleated Red Blood 0.0 Cells # Sodium Level 136 Potassium Level 3.5 Chloride Level 89 L Carbon Dioxide Level 37 H Anion Gap 10 Blood Urea Nitrogen 81 H Creatinine 2.35 H Est Glomerular 29 L Filtrat Rate mL/min Glucose Level 136 Calcium Level 7.1 L Phosphorus Level 4.9 # Magnesium Level 2.0 Total Bilirubin 0.5 Direct Bilirubin 0.00 Indirect Bilirubin 0.5 Aspartate Amino 20 Transf (AST/SGOT) Alanine 42 Aminotransferase (AL T/SGPT) Alkaline Phosphatase 40 L Total Protein 4.9 L Albumin 2.7 L Globulin 2.20 Albumin/Globulin 1.22 Ratio Test 11/05/18 17:18 11/05/18 21:12 Bedside Glucose 261 H 193 Medications Medications Current Medications IV Flush (NS 3 ml) 3 ml PER PROTOCOL IV ; Start 10/30/18 at 22:30 Ondansetron HCl (Zofran Tab) 4 mg Q6H PRN PO NAUSEA/VOMITING; Start 10/30/18 at 22:30 Ondansetron HCl (Zofran Inj) 4 mg Q6H PRN IV NAUSEA/VOMITING Last administered on 10/31/18at 20:56; Admin Dose 4 MG; Start 10/30/18 at 22:30 Acetaminophen (Tylenol Tab) 650 mg Q6H PRN PO .PAIN 1-3 OR TEMP Last administered on 11/01/18at 12:47; Admin Dose 650 MG; Start 10/30/18 at 22:30 Acetaminophen/ Hydrocodone Bitart ([place] (5/325)) 1 tab Q6H PRN PO .PAIN 4-6; Start 10/30/18 at 22:30 Bisacodyl (Dulcolax) 5 mg DAILY PRN PO .CONSTIPATION; Start 10/30/18 at 22:30 Octreotide Acetate 1 mg/ Dextrose 100 ml @ 5 mls/hr Q20H IV Last administered on 11/05/18 03:04; Admin Dose 5 MLS/HR; Start 10/31/18 at 04:00 Metoprolol Tartrate (Lopressor) 2.5 mg Q6H PRN IV for systolic above 170 Last administered on 10/31/18 21:43; Admin Dose 2.5 MG; Start 10/31/18 at 04:00 Pantoprazole 80 mg/Sodium Chloride 100 ml @ 10 mls/hr Q10H IVPB Last administered on 11/05/18 13:55; Admin Dose 10 MLS/HR; Start 11/01/18 at 02:00 IV Flush (NS 10 ml) 10 ml PRN PRN IV IV PROTOCOL; Start 10/31/18 at 17:00 Hydralazine HCl (Apresoline) 10 mg Q4H PRN IV systolic > 170 Last administered on 11/05/18 00:15; Admin Dose 10 MG; Start 10/31/18 at 23:00 Hydralazine HCl (Apresoline) 20 mg Q6H PRN IV systolic > 190 ; Start 10/31/18 at 23:00 Prednisone (Prednisone) 40 mg DAILY PO Last administered on 11/05/18 08:36; Admin Dose 40 MG; Start 11/02/18 at 09:00 Atorvastatin Calcium (Lipitor) 80 mg HS PO Last administered on 11/05/18 21:13; Admin Dose 80 MG; Start 11/01/18 at 21:00 Carvedilol (Coreg) 12.5 mg BID PO Last administered on 11/05/18 21:14; Admin Dose 12.5 MG; Start 11/01/18 at 21:00 Labetalol HCl (Labetalol) 10 mg Q4H PRN IV sbp>160 Last administered on 11/03/18 02:26; Admin Dose 10 MG; Start 11/01/18 at 15:00 Sevelamer Carbonate (Renvela) 800 mg WITH MEALS PO Last administered on 11/05/18 17:51; Admin Dose 800 MG; Start 11/02/18 at 11:30 Diagnostic Test (Pha) (Accu-Chek) 1 ea 02 XX Last administered on 11/05/18 02:28; Admin Dose 1 EA; Start 11/03/18 at 02:00 Insulin Aspart (Novolog Insulin Pen) NOVOLOG *MODERATE* ALGORITHM WITH MEALS BEDTIME SC Last administered on 11/05/18 21:25; Admin Dose 4 UNIT; Start 11/03/18 at 17:55 Magnesium Oxide (Mag-Ox 400) 400 mg BID PO Last administered on 11/05/18 21:13; Admin Dose 400 MG; Start 11/03/18 at 21:00 Isosorbide Mononitrate (Imdur) 30 mg DAILY PO Last administered on 11/05/18 08 :36; Admin Dose 30 MG; Start 11/04/18 at 14:00 Potassium Chloride (Potassium Chloride Pwd/Soln) 40 meq BID PO Last administered on 11/05/18 21:14; Admin Dose 40 MEQ; Start 11/04/18 at 21:00 Clopidogrel Bisulfate (plaVIX) 75 mg DAILY PO Last administered on 11/05/18 17:51; Admin Dose 75 MG; Start 11/05/18 at 17:30 Aspirin (Halfprin) 81 mg DAILY PO Last administered on 11/05/18 17:51; Admin Dose 81 MG; Start 11/05/18 at 17:30 Pantoprazole (Protonix Tab) 40 mg DAILY@06 PO ; Start 11/06/18 at 06:00 Anirudh Downey DO Nov 05, 2018 22:47
[2018-11-06] VITALS (12 sets, daily range): BP systolic 123–169; BP diastolic 75–83; PULSE 58–95; RESP 18–20
[2018-11-06] MEDS: PANTOPRAZOLE IV 80 MG in SOD CHLORIDE 0.9% 100 ML IVPB SCH ×3 (01:07→22:35)
[2018-11-06] MEDS: OCTREOTIDE 1 MG in DEXTROSE 5% 95 ML IV SCH ×2 (01:07→20:00)
[2018-11-06] MEDS: ACCUCHECK AT 2AM (Patients on SS coverage) XX SCH (01:10)
[2018-11-06] MEDS: LABETALOL HCL 20MG INJ IV PRN (03:31)
[2018-11-06] MEDS ORDERED: PANTOPRAZOLE (EC) 40 MG TAB PO SCH (06:00)
[2018-11-06] MEDS: INSULIN ASPART [NOVOLOG] 3 ML PEN SC SCH ×4 (07:37→21:35)
[2018-11-06] MEDS: SEVELAMER CARBONATE 800 MG TABLET PO SCH ×3 (07:40→17:20)
[2018-11-06] MEDS: POTASSIUM CHLORIDE 20 MEQ POWDER FOR ORAL SOLN PO SCH ×2 (08:42→20:44)
[2018-11-06] MEDS: MAGNESIUM OXIDE 400 MG TAB PO SCH ×2 (08:43→20:42)
[2018-11-06] MEDS: CLOPIDOGREL 75 MG TAB PO SCH (08:43)
[2018-11-06] MEDS: ISOSORBIDE MONONITRATE(SR)30 MG TAB PO SCH ×2 (08:43→20:43)
[2018-11-06] MEDS: ASPIRIN (EC) 81 MG TAB PO SCH (08:43)
[2018-11-06] MEDS: predniSONE 20 MG TAB PO SCH (08:44)
--- NOTE | 2018-11-06 08:44 | PN ---
DATE: 11/06/2018 SUBJECTIVE: The patient is stable, no events overnight. No fevers, chills, nausea, vomiting. OBJECTIVE: VITAL SIGNS: Blood pressure is 157/78, pulse 58, respirations 20, temperature 98.9. HEENT: Head is normocephalic. NECK: Supple. HEART: Regular rate. LUNGS: Show diminished breath sounds at the base. ABDOMEN: Soft, nontender to palpation without rebound or guarding. EXTREMITIES: Negative for clubbing, cyanosis. Trace edema. DERMATOLOGIC: No rashes. MUSCULOSKELETAL: No joint effusions. NEUROLOGIC: No change in exam. MEDICATIONS: The patient's medications have been reviewed. LABORATORY DATA: Has been reviewed. IMAGING STUDIES: Reviewed. ASSESSMENT AND PLAN: 1. Nonoliguric kidney injury on top of chronic kidney disease with baseline creatinine approximately 2 to 3 mg/dL. Etiology of acute kidney injury is secondary to hemodynamics, tubular injury, underly ing primary glomerulopathy. The patient's renal function has fluctuated but overall stable. Continue current treatment plan and supportive care and renally dose all meds. 2. 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 Etiolo gy is unclear, possible FSGS, membranous nephropathy or disease. The patient has been placed o n prednisone by his primary foot and ankle surgeon. At this point, continue current treatment plan. Continue supportive care. The patient to follow up with his primary foot and ankle surgeon in outpatient setting. 3. Volume overload. Diffuse anasarca improved. The patient will be placed on low dose Bumex to devon ntain euvolemic status. 4. Metabolic alkalosis likely due to diuretic therapy. Continue to monitor. Will give intermittent Diamox as needed. 5. Anemia. Monitor hemoglobin and hematocrit levels. 6. Mineral bone disorder. Monitor calcium and phosphorus levels. 7. Possible cirrhosis. Continue medical management. 8. History of gastrointestinal bleed secondary to gastritis. The patient is on octreotide and PPI. Continue to monitor. Follow up with GI. 9. Hypertension. Continue current blood pressure regimen. 10. Non-STEMI. Continue medical management. 11. History of coronary artery disease, status post percutaneous coronary intervention. 11. Systemic inflammatory response syndrome. Dictated By: ARDEN OLIVIER/YUKI Conf#: [id number] DID#: [id number] CC: DAYNA GOODEN MD; RADHA CONTRERAS MD; BONNIE LEACH MD;*[facility]*
[2018-11-06] MEDS: BUMETANIDE 1 MG TAB PO SCH ×2 (09:00→17:20)
--- NOTE | 2018-11-06 11:03 | PN ---
Date/Time of Note Date/Time of Note DATE: 11/06/18 TIME: 10:55 Assessment/Plan VTE Prophylaxis Risk score (from [facility])>0 risk: 3 SCD applied (from [facility]): Yes Pharmacological prophylaxis: NA/contraindicated Pharm contraindication: low risk/ambulating Lines/Catheters IV C[facility]ter Type (from [facility]): PICC Line Central line still needed: Yes Urinary Cath still in place: Yes Reason Cath still needed: other (indicate) (monitor I&O) Assessment/Plan Hospital Course Assessment and plan 1. Reported GI bleed. Patient refusing endoscopy at this time. H&H remained stable at present. Monitor for now. 2. NSTEMI. Continue medical optimization. Patient did have reported plan catheter H&H however he refused transfer. Started on ASA and Plavix per estate tax examiner. Continue medical optimization. 3. CKD. Likely secondary to hemodynamics. Renally dose medications. Monitor renal panel. 4. Hx CAD with PCI 05.01. Resumed on plavix and ASA. continue on statin. 5. hx Tobacco use. Cessation advised Disposition and plan. Overall appears stable. Monitor H&H while on ASA and Plavix. Discharge when cleared by consultants. Discussed POC with Dr. Mcgill Result Diagram: 11/06/18 0650 11/06/18 0650 Results 24hrs Laboratory Tests Test 11/05/18 12:06 11/05/18 17:18 11/05/18 21:12 11/06/18 01:06 Bedside Glucose 221 H 261 H 193 149 Test 11/06/18 06:50 11/06/18 07:33 White Blood Count 11.0 H Red Blood Count 2.81 L Hemoglobin 8.2 L Hematocrit 25.8 L Mean Corpuscular 91.8 Volume Mean Corpuscular 29.2 Hemoglobin Mean Corpuscular 31.8 L Hemoglobin Concent Red Cell 14.6 H Distribution Width Platelet Count 162 Mean Platelet Volume 9.8 Immature 0.500 H Granulocytes % Neutrophils % 76.8 Lymphocytes % 11.8 L Monocytes % 10.7 Eosinophils % 0.1 Basophils % 0.1 Nucleated Red Blood 0.0 Cells % Immature 0.060 H Granulocytes # Neutrophils # 8.4 H Lymphocytes # 1.3 Monocytes # 1.2 H Eosinophils # 0.0 Basophils # 0.0 Nucleated Red Blood 0.0 Cells # Sodium Level 137 Potassium Level 4.1 Chloride Level 95 L Carbon Dioxide Level 33 H Anion Gap 9 Blood Urea Nitrogen 72 H Creatinine 2.44 H Est Glomerular 27 L Filtrat Rate mL/min Glucose Level 140 Calcium Level 7.2 L Phosphorus Level 3.7 Magnesium Level 2.3 Bedside Glucose 197 Subjective 24 Hr Interval Summary Free Text/Dictation denies any chest pain, comfortable at present. no specific complaints Exam/Review of Systems Exam Vitals Vital Signs Date Temp Pulse Resp B/P (MAP) Pulse Ox O2 O2 Flow FiO2 Time Delivery Rate 11/06/18 71 08:01 11/06/18 98.9 20 157/78 96 Room Air 07:32 (104) 11/04/18 3.0 19:56 11/03/18 18:41 Intake and Output 11/05/18 11/05/18 11/06/18 1515:00 23:00 07:00 IntakeIntake Total 650 ml 870 ml 240 ml OutputOutput Total 1001 ml 650 ml 1350 ml BalanceBalance -351 ml 220 ml -1110 ml Constitutional: alert, oriented Psych: nl mood/affect Head: normocephalic Neck: supple, non-tender Respiratory: clear to auscultation Cardiovascular: other (regular rate ) Gastrointestinal: soft; No tender Extremities: edema (ble minimal ) Neurological: HAND POLISHER II-XII intact, nl mental status, nl speech Skin: other (brusing RUE ) Results Results 24hrs Laboratory Tests Test 11/05/18 12:06 11/05/18 17:18 11/05/18 21:12 11/06/18 01:06 Bedside Glucose 221 H 261 H 193 149 Test 11/06/18 06:50 11/06/18 07:33 White Blood Count 11.0 H Red Blood Count 2.81 L Hemoglobin 8.2 L Hematocrit 25.8 L Mean Corpuscular 91.8 Volume Mean Corpuscular 29.2 Hemoglobin Mean Corpuscular 31.8 L Hemoglobin Concent Red Cell 14.6 H Distribution Width Platelet Count 162 Mean Platelet Volume 9.8 Immature 0.500 H Granulocytes % Neutrophils % 76.8 Lymphocytes % 11.8 L Monocytes % 10.7 Eosinophils % 0.1 Basophils % 0.1 Nucleated Red Blood 0.0 Cells % Immature 0.060 H Granulocytes # Neutrophils # 8.4 H Lymphocytes # 1.3 Monocytes # 1.2 H Eosinophils # 0.0 Basophils # 0.0 Nucleated Red Blood 0.0 Cells # Sodium Level 137 Potassium Level 4.1 Chloride Level 95 L Carbon Dioxide Level 33 H Anion Gap 9 Blood Urea Nitrogen 72 H Creatinine 2.44 H Est Glomerular 27 L Filtrat Rate mL/min Glucose Level 140 Calcium Level 7.2 L Phosphorus Level 3.7 Magnesium Level 2.3 Bedside Glucose 197 Medications Medication Current Medications IV Flush (NS 3 ml) 3 ml PER PROTOCOL IV ; Start 10/30/18 at 22:30 Ondansetron HCl (Zofran Tab) 4 mg Q6H PRN PO NAUSEA/VOMITING; Start 10/30/18 at 22:30 Ondansetron HCl (Zofran Inj) 4 mg Q6H PRN IV NAUSEA/VOMITING Last administered on 10/31/18 20:56; Admin Dose 4 MG; Start 10/30/18 at 22:30 Acetaminophen (Tylenol Tab) 650 mg Q6H PRN PO .PAIN 1-3 OR TEMP Last administered on 11/01/18 12:47; Admin Dose 650 MG; Start 10/30/18 at 22:30 Acetaminophen/ Hydrocodone Bitart ([place] (5/325)) 1 tab Q6H PRN PO .PAIN 4-6; Start 10/30/18 at 22:30 Bisacodyl (Dulcolax) 5 mg DAILY PRN PO .CONSTIPATION; Start 10/30/18 at 22:30 Octreotide Acetate 1 mg/ Dextrose 100 ml @ 5 mls/hr Q20H IV Last administered on 11/06/18 01:07; Admin Dose 5 MLS/HR; Start 10/31/18 at 04:00 Metoprolol Tartrate (Lopressor) 2.5 mg Q6H PRN IV for systolic above 170 Last administered on 10/31/18 21:43; Admin Dose 2.5 MG; Start 10/31/18 at 04:00 Pantoprazole 80 mg/Sodium Chloride 100 ml @ 10 mls/hr Q10H IVPB Last adm inistered on 11/06/18 01:07; Admin Dose 10 MLS/HR; Start 11/01/18 at 02:00 IV Flush (NS 10 ml) 10 ml PRN PRN IV IV PROTOCOL; Start 10/31/18 at 17:00 Hydralazine HCl (Apresoline) 10 mg Q4H PRN IV systolic > 170 Last administered on 11/05/18 00:15; Admin Dose 10 MG; Start 10/31/18 at 23:00 Hydralazine HCl (Apresoline) 20 mg Q6H PRN IV systolic > 190 ; Start 10/31/18 at 23:00 Prednisone (Prednisone) 40 mg DAILY PO Last administered on 11/06/18 08:44; Admin Dose 40 MG; Start 11/02/18 at 09:00 Atorvastatin Calcium (Lipitor) 80 mg HS PO Last administered on 11/05/18 21:13; Admin Dose 80 MG; Start 11/01/18 at 21:00 Carvedilol (Coreg) 12.5 mg BID PO Last administered on 11/06/18 08:44; Admin Dose 12.5 MG; Start 11/01/18 at 21:00 Labetalol HCl (Labetalol) 10 mg Q4H PRN IV sbp>160 Last administered on 11/06/18 03:31; Admin Dose 10 MG; Start 11/01/18 at 15:00 Sevelamer Carbonate (Renvela) 800 mg WITH MEALS PO Last administered on 11/06/18 07:40; Admin Dose 800 MG; Start 11/02/18 at 11:30 Diagnostic Test (Pha) (Accu-Chek) 1 ea 02 XX Last administered on 11/06/18 01:10; Admin Dose 1 EA; Start 11/03/18 at 02:00 Insulin Aspart (Novolog Insulin Pen) NOVOLOG *MODERATE* ALGORITHM WITH MEALS BEDTIME SC Last administered on 11/06/18 07:37; Admin Dose 4 UNIT; Start 11/03/18 at 17:55 Magnesium Oxide (Mag-Ox 400) 400 mg BID PO Last administered on 11/06/18 08:43; Admin Dose 400 MG; Start 11/03/18 at 21:00 Isosorbide Mononitrate (Imdur) 30 mg DAILY PO Last administered on 11/06/18 08:43; Admin Dose 30 MG; Start 11/04/18 at 14:00 Potassium Chloride (Potassium Chloride Pwd/Soln) 40 meq BID PO Last administered on 11/06/18 08:42; Admin Dose 40 MEQ; Start 11/04/18 at 21:00 Clopidogrel Bisulfate (plaVIX) 75 mg DAILY PO Last administered on 11/06/18 08:43; Admin Dose 75 MG; Start 11/05/18 at 17:30 Aspirin (Halfprin) 81 mg DAILY PO Last administered on 11/06/18 08:43; Admin Dose 81 MG; Start 11/05/18 at 17:30 Pantoprazole (Protonix Tab) 40 mg DAILY@06 PO Last administered on 11/06/18 05:28; Admin Dose 40 MG; Start 11/06/18 at 06:00 Bumetanide (Bumex) 1 mg BID DIURETICS PO Last administered on 11/06/18 09:00; Admin Dose 1 MG; Start 11/06/18 at 08:30 ALEJANDRA RAMÍREZ NP Nov 06, 2018 11:03
--- NOTE | 2018-11-06 18:27 | CONS ---
Assessment/Plan Assessment/Plan Hospital Course (Demo Recall) Non-ST elevation myocardial infarction Left ventricular ejection fraction 55% Acute kidney injury Volume overload Acute blood loss anemia CAD with history of PCI April 2018 Hypertension Dyslipidemia Tobacco use Patient denies any further chest pain or shortness of breath. Aspirin and Plavix was restarted yesterday. Would monitor hemoglobin closely Myocardial infarction likely secondary to severe anemia. Most recent ECG with no significant ischemic abnormalities and troponins have been trending down. In discussion with patient regarding further GI endoscopy, he is currently refusing. Continue carvedilol and titrate as heart rate and blood pressure permits, continue statin therapy We will increase imdur given elevated blood pressure Consultation Date/Type/Reason Admit Date/Time Oct 30, 2018 at 22:13 Initial Consult Date Type of Consult Cardiology Date/Time of Note DATE: 11/06/18 TIME: 18:26 24 HR Interval Summary Free Text/Dictation Denies chest pain, shortness of breath or palpitations Exam/Review of Systems Vital Signs Vitals Vital Signs Date Temp Pulse Resp B/P (MAP) Pulse Ox O2 O2 Flow FiO2 Time Delivery Rate 11/06/18 64 16:01 11/06/18 98.7 20 169/83 96 Room Air 15:28 (111) 11/04/18 3.0 19:56 11/03/18 21 18:41 Intake and Output 11/05/18 11/05/18 11/06/18 1515:00 23:00 07:00 IntakeIntake Total 650 ml 870 ml 240 ml OutputOutput Total 1001 ml 650 ml 1350 ml BalanceBalance -351 ml 220 ml -1110 ml Exam Constitutional: alert, oriented, well developed Respiratory: other (Coarse breath sounds bilaterally, no wheezing) Cardiovascular: regular rate and rhythm (S1-S2 heard) Gastrointestinal: soft, non-tender, bowel sounds Extremities: edema Labs Result Diagram: 11/06/18 1609 11/06/18 0650 Results 24hrs Laboratory Tests Test 11/05/18 21:12 11/06/18 01:06 11/06/18 06:50 11/06/18 07:33 Bedside Glucose 193 149 197 White Blood Count 11.0 H Red Blood Count 2.81 L Hemoglobin 8.2 L Hematocrit 25.8 L Mean Corpuscular 91.8 Volume Mean Corpuscular 29.2 Hemoglobin Mean Corpuscular 31.8 L Hemoglobin Concent Red Cell 14.6 H Distribution Width Platelet Count 162 Mean Platelet Volume 9.8 Immature 0.500 H Granulocytes % Neutrophils % 76.8 Lymphocytes % 11.8 L Monocytes % 10.7 Eosinophils % 0.1 Basophils % 0.1 Nucleated Red Blood 0.0 Cells % Immature 0.060 H Granulocytes # Neutrophils # 8.4 H Lymphocytes # 1.3 Monocytes # 1.2 H Eosinophils # 0.0 Basophils # 0.0 Nucleated Red Blood 0.0 Cells # Sodium Level 137 Potassium Level 4.1 Chloride Level 95 L Carbon Dioxide Level 33 H Anion Gap 9 Blood Urea Nitrogen 72 H Creatinine 2.44 H Est Glomerular 27 L Filtrat Rate mL/min Glucose Level 140 Calcium Level 7.2 L Phosphorus Level 3.7 Magnesium Level 2.3 Test 11/06/18 11:38 11/06/18 16:09 11/06/18 17:18 Bedside Glucose 198 210 White Blood Count 10.7 Red Blood Count 2.86 L Hemoglobin 8.5 L Hematocrit 26.2 L Mean Corpuscular 91.6 Volume Mean Corpuscular 29.7 Hemoglobin Mean Corpuscular 32.4 Hemoglobin Concent Red Cell 14.6 H Distribution Width Platelet Count 188 Mean Platelet Volume 9.4 Immature 0.700 H Granulocytes % Neutrophils % 92.0 H Lymphocytes % 4.3 L Monocytes % 3.0 Eosinophils % 0.0 Basophils % 0.0 Nucleated Red Blood 0.0 Cells % Immature 0.080 H Granulocytes # Neutrophils # 9.9 H Lymphocytes # 0.5 L Monocytes # 0.3 Eosinophils # 0.0 Basophils # 0.0 Nucleated Red Blood 0.0 Cells # Medications Medications Current Medications IV Flush (NS 3 ml) 3 ml PER PROTOCOL IV ; Start 10/30/18 at 22:30 Ondansetron HCl (Zofran Tab) 4 mg Q6H PRN PO NAUSEA/VOMITING; Start 10/30/18 at 22:30 Ondansetron HCl (Zofran Inj) 4 mg Q6H PRN IV NAUSEA/VOMITING Last administered on 10/31/18at 20:56; Admin Dose 4 MG; Start 10/30/18 at 22:30 Acetaminophen (Tylenol Tab) 650 mg Q6H PRN PO .PAIN 1-3 OR TEMP Last administered on 11/01/18at 12:47; Admin Dose 650 MG; Start 10/30/18 at 22:30 Acetaminophen/ Hydrocodone Bitart ([place] (5/325)) 1 tab Q6H PRN PO .PAIN 4-6; Start 10/30/18 at 22:30 Bisacodyl (Dulcolax) 5 mg DAILY PRN PO .CONSTIPATION; Start 10/30/18 at 22:30 Octreotide Acetate 1 mg/ Dextrose 100 ml @ 5 mls/hr Q20H IV Last administered on 11/06/18 01:07; Admin Dose 5 MLS/HR; Start 10/31/18 at 04:00 Metoprolol Tartrate (Lopressor) 2.5 mg Q6H PRN IV for systolic above 170 Last administered on 10/31/18 21:43; Admin Dose 2.5 MG; Start 10/31/18 at 04:00 Pantoprazole 80 mg/Sodium Chloride 100 ml @ 10 mls/hr Q10H IVPB Last administered on 11/06/18 12:11; Admin Dose 10 MLS/HR; Start 11/01/18 at 02:00 IV Flush (NS 10 ml) 10 ml PRN PRN IV IV PROTOCOL; Start 10/31/18 at 17:00 Hydralazine HCl (Apresoline) 10 mg Q4H PRN IV systolic > 170 Last administered on 11/05/18 00:15; Admin Dose 10 MG; Start 10/31/18 at 23:00 Hydralazine HCl (Apresoline) 20 mg Q6H PRN IV systolic > 190 ; Start 10/31/18 at 23:00 Prednisone (Prednisone) 40 mg DAILY PO Last administered on 11/06/18 08:44; Admin Dose 40 MG; Start 11/02/18 at 09:00 Atorvastatin Calcium (Lipitor) 80 mg HS PO Last administered on 11/05/18 21:13; Admin Dose 80 MG; Start 11/01/18 at 21:00 Carvedilol (Coreg) 12.5 mg BID PO Last administered on 11/06/18 08:44; Admin Dose 12.5 MG; Start 11/01/18 at 21:00 Labetalol HCl (Labetalol) 10 mg Q4H PRN IV sbp>160 Last administered on 03:31; Admin Dose 10 MG; Start 11/01/18 at 15:00 Sevelamer Carbonate (Renvela) 800 mg WITH MEALS PO Last administered on 11/06/18 17:20; Admin Dose 800 MG; Start 11/02/18 at 11:30 Diagnostic Test (Pha) (Accu-Chek) 1 ea 02 XX Last administered on 11/06/18 01:10; Admin Dose 1 EA; Start 11/03/18 at 02:00 Insulin Aspart (Novolog Insulin Pen) NOVOLOG *MODERATE* ALGORITHM WITH MEALS BEDTIME SC Last administered on 11/06/18 17:20; Admin Dose 4 UNIT; Start 11/03/18 at 17:55 Magnesium Oxide (Mag-Ox 400) 400 mg BID PO Last administered on 11/06/18 08:43; Admin Dose 400 MG; Start 11/03/18 at 21:00 Isosorbide Mononitrate (Imdur) 30 mg DAILY PO Last administered on 11/06/18 08:43; Admin Dose 30 MG; Start 11/04/18 at 14:00 Potassium Chloride (Potassium Chloride Pwd/Soln) 40 meq BID PO Last administered on 11/06/18 08:42; Admin Dose 40 MEQ; Start 11/04/18 at 21:00 Clopidogrel Bisulfate (plaVIX) 75 mg DAILY PO Last administered on 11/06/18 08:43; Admin Dose 75 MG; Start 11/05/18 at 17:30 Aspirin (Halfprin) 81 mg DAILY PO Last administered on 11/06/18 08:43; Admin Dose 81 MG; Start 11/05/18 at 17:30 Bumetanide (Bumex) 1 mg BID DIURETICS PO Last administered on 11/06/18 17:20; Admin Dose 1 MG; Start 11/06/18 at 08:30 Anirudh Downey DO Nov 06, 2018 18:27
[2018-11-06] MEDS: ATORVASTATIN 40 MG TAB PO SCH (20:44)
[2018-11-07] VITALS (8 sets, daily range): BP systolic 159–184; BP diastolic 75–86; PULSE 65–92; RESP 20–22
[2018-11-07] MEDS: ACCUCHECK AT 2AM (Patients on SS coverage) XX SCH (02:00)
[2018-11-07] MEDS: OCTREOTIDE 1 MG in DEXTROSE 5% 95 ML IV SCH (04:13)
[2018-11-07] MEDS: BUMETANIDE 1 MG TAB PO SCH (06:00)
[2018-11-07] MEDS: INSULIN ASPART [NOVOLOG] 3 ML PEN SC SCH ×2 (07:55→11:50)
[2018-11-07] MEDS: PANTOPRAZOLE IV 80 MG in SOD CHLORIDE 0.9% 100 ML IVPB SCH (08:00)
--- NOTE | 2018-11-07 08:39 | PN ---
DATE: 11/07/2018 SUBJECTIVE: The patient is clinically improving. No acute events noted. No hemoptysis, hematemesis or hematochezia. OBJECTIVE: VITAL SIGNS: Blood pressure is 167/79, respirations 20, pulse 78, temperature 98.6. HEENT: Head is normocephalic. NECK: Supple. HEART: Regular rate. LUNGS: Show diminished breath sounds at the base. ABDOMEN: Soft, nontender to palpation without rebound or guarding. EXTREMITIES: Negative for clubbing, cyanosis, no edema. DERMATOLOGIC: No rashes. MUSCULOSKELETAL: No joint effusion. NEUROLOGIC: No change in exam. MEDICATIONS: The patient's medications have been reviewed. LABORATORY DATA: Reviewed. IMAGING STUDIES: Reviewed. ASSESSMENT AND PLAN: 1. Nonoliguric acute kidney injury on top of chronic kidney disease with baseline creatinine between 2 to 3 mg/dL. Etiology of acute kidney injury is secondary to hemodynamics, tubular injury, possibl e primary glomerulopathy. The patient's renal function has appeared to have been stabilizing around a creatinine of 2.5 mg/dL. At this point, continue current treatment plan, supportive care, renally dose all medications. 2. 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 The patient has been placed on prednisone by his primary human services case manager in outpatient setting. Continue current treatment plan. Continue supportive care. 3. Volume overload, diffuse anasarca, improved. Continue current diuretic regimen to maintain euvol emia. 4. Metabolic alkalosis likely from diuretic therapy. Continue to monitor. We will give intermitten t Diamox as needed. 5. Anemia. Monitor hemoglobin and hematocrit levels. 6. Mineral bone disorder, monitor calcium and phosphorus levels. 7. Possible cirrhosis. Continue medical management. 8. History of gastrointestinal bleed secondary to gastritis. Continue octreotide and proton pump in hibitor drip. 9. Hypertension. Continue current blood pressure regimen. 10. Non-ST elevated myocardial infarction. Continue medical management. 11. History of coronary artery disease, status post percutaneous coronary intervention. 12. Systemic inflammatory response syndrome. Dictated By: ARDEN BECKHAM DO NR/NTS Conf#: [id number] DID#: [id number] CC: BONNIE LEACH MD; RADHA CONTRERAS MD; DAYNA GOODEN MD;*[facility]*
[2018-11-07] MEDS: MAGNESIUM OXIDE 400 MG TAB PO SCH (08:57)
[2018-11-07] MEDS: SEVELAMER CARBONATE 800 MG TABLET PO SCH ×2 (08:57→11:20)
[2018-11-07] MEDS: predniSONE 20 MG TAB PO SCH (08:57)
[2018-11-07] MEDS: CLOPIDOGREL 75 MG TAB PO SCH (08:57)
[2018-11-07] MEDS: POTASSIUM CHLORIDE 20 MEQ POWDER FOR ORAL SOLN PO SCH (08:57)
[2018-11-07] MEDS: ASPIRIN (EC) 81 MG TAB PO SCH (08:57)
[2018-11-07] MEDS: ISOSORBIDE MONONITRATE(SR)30 MG TAB PO SCH (08:58)
--- NOTE | 2018-11-07 11:39 | CONS ---
Assessment/Plan Assessment/Plan Hospital Course (Demo Recall) Non-ST elevation myocardial infarction Left ventricular ejection fraction 55% Acute kidney injury Volume overload Acute blood loss anemia CAD with history of PCI April 2018 Hypertension Dyslipidemia Tobacco use Patient denies any further chest pain or shortness of breath. Aspirin and Plavix was restarted , hemoglobin remains stable. Would recommend close outpatient follow-up Myocardial infarction likely secondary to severe anemia. Most recent ECG with no significant ischemic abnormalities and troponins have been trending down. Continue carvedilol and titrate as heart rate and blood pressure permits, continue statin therapy Imdur dose was just increased yesterday. Titrate as needed DC planning Consultation Date/Type/Reason Admit Date/Time Oct 30, 2018 at 22:13 Initial Consult Date Type of Consult Cardiology Date/Time of Note DATE: 11/07/18 TIME: 11:38 24 HR Interval Summary Free Text/Dictation Denies chest pain, shortness of breath or palpitations, asking to go home Exam/Review of Systems Vital Signs Vitals Vital Signs Date Temp Pulse Resp B/P (MAP) Pulse Ox O2 O2 Flow FiO2 Time Delivery Rate 11/07/18 97.9 92 20 159/75 96 Nasal 11:29 (103) Cannula 11/04/18 3.0 19:56 11/03/18 21 18:41 Intake and Output 11/06/18 11/06/18 11/07/18 1515:00 23:00 07:00 IntakeIntake Total 1600 ml 3500 ml OutputOutput Total 1150 ml 1200 ml 4400 ml BalanceBalance -1150 ml 400 ml -900 ml Exam Constitutional: alert, oriented (No apparent distress) Head: normocephalic Respiratory: other (Coarse breath sounds bilaterally, no wheezing) Cardiovascular: regular rate and rhythm (S1-S2 heard) Gastrointestinal: soft, non-tender, bowel sounds Extremities: edema Labs Result Diagram: 11/07/18 1115 11/07/18 0545 Results 24hrs Laboratory Tests Test 11/06/18 16:09 11/06/18 17:18 11/06/18 21:04 11/07/18 05:45 White Blood Count 10.7 Red Blood Count 2.86 L Hemoglobin 8.5 L Hematocrit 26.2 L Mean Corpuscular 91.6 Volume Mean Corpuscular 29.7 Hemoglobin Mean Corpuscular 32.4 Hemoglobin Concent Red Cell 14.6 H Distribution Width Platelet Count 188 Mean Platelet Volume 9.4 Immature 0.700 H Granulocytes % Neutrophils % 92.0 H Lymphocytes % 4.3 L Monocytes % 3.0 Eosinophils % 0.0 Basophils % 0.0 Nucleated Red Blood 0.0 Cells % Immature 0.080 H Granulocytes # Neutrophils # 9.9 H Lymphocytes # 0.5 L Monocytes # 0.3 Eosinophils # 0.0 Basophils # 0.0 Nucleated Red Blood 0.0 Cells # Bedside Glucose 210 200 Sodium Level 137 Potassium Level 4.7 Chloride Level 97 Carbon Dioxide Level 33 H Anion Gap 7 Blood Urea Nitrogen 67 H Creatinine 2.38 H Est Glomerular 28 L Filtrat Rate mL/min Glucose Level 142 Calcium Level 7.2 L Phosphorus Level 3.4 Magnesium Level 2.4 Test 11/07/18 07:53 11/07/18 11:15 11/07/18 11:17 Bedside Glucose 194 116 White Blood Count 12.7 H Red Blood Count 2.94 L Hemoglobin 8.6 L Hematocrit 25.9 L Mean Corpuscular 88.1 Volume Mean Corpuscular 29.3 Hemoglobin Mean Corpuscular 33.2 Hemoglobin Concent Red Cell 14.6 H Distribution Width Platelet Count 206 Mean Platelet Volume 9.5 Immature 0.600 H Granulocytes % Neutrophils % 80.5 H Lymphocytes % 8.4 L Monocytes % 9.9 Eosinophils % 0.5 Basophils % 0.1 Nucleated Red Blood 0.0 Cells % Immature 0.080 H Granulocytes # Neutrophils # 10.2 H Lymphocytes # 1.1 Monocytes # 1.3 H Eosinophils # 0.1 Basophils # 0.0 Nucleated Red Blood 0.0 Cells # Medications Medications Current Medications IV Flush (NS 3 ml) 3 ml PER PROTOCOL IV ; Start 10/30/18 at 22:30 Ondansetron HCl (Zofran Tab) 4 mg Q6H PRN PO NAUSEA/VOMITING; Start 10/30/18 at 22:30 Ondansetron HCl (Zofran Inj) 4 mg Q6H PRN IV NAUSEA/VOMITING Last administered on 10/31/18at 20:56; Admin Dose 4 MG; Start 10/30/18 at 22:30 Acetaminophen (Tylenol Tab) 650 mg Q6H PRN PO .PAIN 1-3 OR TEMP Last administered on 11/01/18at 12:47; Admin Dose 650 MG; Start 10/30/18 at 22:30 Acetaminophen/ Hydrocodone Bitart ([place] (5/325)) 1 tab Q6H PRN PO .PAIN 4-6; Start 10/30/18 at 22:30 Bisacodyl (Dulcolax) 5 mg DAILY PRN PO .CONSTIPATION; Start 10/30/18 at 22:30 Octreotide Acetate 1 mg/ Dextrose 100 ml @ 5 mls/hr Q20H IV Last administered on 11/07/18at 04:13; Admin Dose 5 MLS/HR; Start 10/31/18 at 04:00 Metoprolol Tartrate (Lopressor) 2.5 mg Q6H PRN IV for systolic above 170 Last administered on 10/31/18 21:43; Admin Dose 2.5 MG; Start 10/31/18 at 04:00 Pantoprazole 80 mg/Sodium Chloride 100 ml @ 10 mls/hr Q10H IVPB Last administered on 11/06/18 22:35; Admin Dose 10 MLS/HR; Start 11/01/18 at 02:00 IV Flush (NS 10 ml) 10 ml PRN PRN IV IV PROTOCOL; Start 10/31/18 at 17:00 Hydralazine HCl (Apresoline) 10 mg Q4H PRN IV systolic > 170 Last administered on 11/05/18at 00:15; Admin Dose 10 MG; Start 10/31/18 at 23:00 Hydralazine HCl (Apresoline) 20 mg Q6H PRN IV systolic > 190 ; Start 10/31/18 at 23:00 Prednisone (Prednisone) 40 mg DAILY PO Last administered on 11/07/18 08:57; Admin Dose 40 MG; Start 11/02/18 at 09:00 Atorvastatin Calcium (Lipitor) 80 mg HS PO Last administered on 11/06/18 20:44; Admin Dose 80 MG; Start 11/01/18 at 21:00 Carvedilol (Coreg) 12.5 mg BID PO Last administered on 11/07/18 08:57; Admin Dose 12.5 MG; Start 11/01/18 at 21:00 Labetalol HCl (Labetalol) 10 mg Q4H PRN IV sbp>160 Last administered on 11/06 03:31; Admin Dose 10 MG; Start 11/01/18 at 15:00 Sevelamer Carbonate (Renvela) 800 mg WITH MEALS PO Last administered on 11/07/18 11:20; Admin Dose 800 MG; Start 11/02/18 at 11:30 Diagnostic Test (Pha) (Accu-Chek) 1 ea 02 XX Last administered on 11/06/18 01:10; Admin Dose 1 EA; Start 11/03/18 at 02:00 Insulin Aspart (Novolog Insulin Pen) NOVOLOG *MODERATE* ALGORITHM WITH MEALS BEDTIME SC Last administered on 11/07/18 07:55; Admin Dose 4 UNIT; Start 11/03/18 at 17:55 Magnesium Oxide (Mag-Ox 400) 400 mg BID PO Last administered on 11/07/18 08:57; Admin Dose 400 MG; Start 11/03/18 at 21:00 Potassium Chloride (Potassium Chloride Pwd/Soln) 40 meq BID PO Last administered on 11/07/18 08:57; Admin Dose 40 MEQ; Start 11/04/18 at 21:00 Clopidogrel Bisulfate (plaVIX) 75 mg DAILY PO Last administered on 11/07/18 08:57; Admin Dose 75 MG; Start 11/05/18 at 17:30 Aspirin (Halfprin) 81 mg DAILY PO Last administered on 11/07/18 08:57; Admin Dose 81 MG; Start 11/05/18 at 17:30 Bumetanide (Bumex) 1 mg BID DIURETICS PO Last administered on 11/07/18 06:00; Admin Dose 1 MG; Start 11/06/18 at 08:30 Isosorbide Mononitrate (Imdur) 30 mg BID PO Last administered on 11/07/18 08:58; Admin Dose 30 MG; Start 11/06/18 at 21:00 Anirudh Downey DO Nov 07, 2018 11:39
[2018-11-07] MEDS ORDERED: CARV6.2579 PO (12:47)
[2018-11-07] MEDS ORDERED: ISOS30TA67 PO (12:47)
[2018-11-07] MEDS ORDERED: PRED20TA PO (12:47)
[2018-11-07] MEDS ORDERED: ATOR40TA68 PO (12:47)
[2018-11-07] MEDS ORDERED: ASPI-1044 PO (12:47)
[2018-11-07] MEDS ORDERED: POTA20PA23 PO (12:47)
[2018-11-07] MEDS ORDERED: SEVE800T7 PO (12:47)
[2018-11-07] MEDS ORDERED: BUME1TAB PO (12:47)
[2018-11-07] MEDS ORDERED: CLOP75TA28 PO (12:47)
--- NOTE | 2018-11-07 12:48 | PDOCDIS ---
Discharge Instructions DIAGNOSIS Discharge Diagnosis 1. Reported GI bleed. 2. NSTEMI. 3. CKD. 4. Hx CAD with PCI 12.18. 5. hx Tobacco use. CONDITION [id number] Patient Condition: [id number] Stable HOME CARE INSTRUCTIONS: [id number] Diet Instructions: Pyzdt1x Low Fat /Cholesterol FOLLOW UP/APPOINTMENTS Follow-up Plan 1. Follow up with Dr. Esteban Whitaker in one week Office Address [address] [facility] [address] [place] [address] Office 2. Follow up with Dr. Anirudh Downey in 1-2 weeks Office Address [facility] [address] [place] [address] Office 3. Follow up with Dr. Yobany Brand in 1-2 weeks Office Address [address] [facility] [address] [place] [address] Office ALEJANDRA RAMÍREZ NP Nov 07, 2018 12:46
--- NOTE | 2018-11-11 11:25 | DS ---
Date/Time of Note Date/Time of Note DATE: 11/11/18 TIME: 11:21 Discharge Summary Admission/Discharge Info Admit Date/Time Oct 30, 2018 at 22:13 Discharge Date/Time Nov 07, 2018 at 14:56 Discharge Diagnosis 1. Reported GI bleed. 2. NSTEMI. 3. CKD. 4. Hx CAD with PCI 05.01. 5. hx Tobacco use. Patient Condition: Stable Hospital Course This is a 58-year-old male who came to the hospital due to worsening bilateral ankle edema for more than a month with generalized swelling and weight gain. He also reports he had been on steroid for more than a month for his kidney disease. During his interview initially he also reported having dark bowel movement vomited dark blood as well. Of note he reported that he was stented in May 2018 at outside hospital and was told he developed kidney problem after receiving contrast. As such was placed on prednisone for that issue. Patient was seen by chief development officer as well as by preschool lead teacher in house. He was also seen by regional director of admissions as well. For his reported GI bleed he refused endoscopy. We did monitor his H&H however. He did stabilize. He was noted with non-ST elevated myocardial infarction. He was seen by chief development officer for this issue. His EF was 35% per echo. Initially held his aspirin and Plavix but considering his comorbidities the benefits of starting DAPT may be reasonable to continue them. We did start him back on DAPT and monitored his H&H which did remain stable. He was otherwise optimized medically. He was resumed on his prednisone and we did renally dose his medications and monitored his renal panel. He was resumed on statin medication as well for his high cholesterol. Patient was a non-smoker and he was advised for cessation. The plan of care was discussed w ith the patient and patient verbalized his understanding. On the day of discharge patient was in stable condition Discussed POC with Dr. Mcgill [facility] Active Scripts Prednisone* (Prednisone*) 20 Mg Tab, 40 MG PO DAILY, #30 TAB Prov:ALEJANDRA RAMÍREZ NP 11/07/18 Sevelamer Carbonate* (Renvela*) 800 Mg Tablet, 800 MG PO WITH MEALS, #90 TAB Prov:ALEJANDRA RAMÍREZ NP 11/07/18 Potassium Chloride (Potassium Chloride) 20 Meq Packet, 40 MEQ PO BID, #60 PACKET Prov:ALEJANDRA RAMÍREZ NP 11/07/18 Isosorbide Mononitrate* (Isosorbide Mononitrate*) 30 Mg Tab.er.24h, 30 MG PO BID, #60 TAB Prov:ALEJANDRA RAMÍREZ NP 11/07/18 Atorvastatin* (Atorvastatin*) 40 Mg Tablet, 80 MG PO HS, #30 TAB Prov:ALEJANDRA RAMÍREZ NP 11/07/18 Carvedilol* (Carvedilol*) 6.25 Mg Tablet, 12.5 MG PO BID, #60 TAB Prov:CARLAALEJANDRA HORN NP 11/07/18 Bumetanide* (Bumetanide*) 1 Mg Tablet, 1 MG PO BID DIURETICS, #60 TAB Prov:ALEJANDRA RAMÍREZ NP 11/07/18 Aspirin Delayed Release (Aspirin Delayed Release) 81 Mg Tablet.dr, 81 MG PO DAILY, #30 TAB Prov:ALEJANDRA RAMÍREZ NP 11/07/18 Clopidogrel Bisulfate (Clopidogrel) 75 Mg Tablet, 75 MG PO DAILY, #30 TAB Prov:ALEJANDRA RAMÍREZ NP 11/07/18 Reported Medications Calcium Carbonate/Vitamin D3 (OYSTER SHELL 500 MG + VIT D TB) 1 Each Tablet, 1 TAB PO BID TAKE ONE TABLET BY MOUTH 2 TIMES A DAY 10/31/18 Famotidine* (Famotidine*) 20 Mg Tablet, 20 MG PO DAILY for 30 Days, #30 10/31/18 Follow-up Plan 1. Follow up with Dr. Esteban Whitaker in one week Office Address [address] [facility] [place] [address] Office 2. Follow up with Dr. Anirudh Downey in 1-2 weeks Office Address [facility] [address] [place] [address] Office 3. Follow up with Dr. Yobany Brand in 1-2 weeks Office Address [address] [facility] [address] [place] [address] Office Primary Care Provider Not On Staff Doctor Time spent on discharge: > 30 minutes ALEJANDRA RAMÍREZ NP Nov 11, 2018 11:25
== END 2018-11-07 14:56 | disposition home or self-care (01) | DRG 377 ==
LOC: E/R 20:01 → TEL 22:13 → ICU 10-31 02:35 → TEL 11-02 08:45
PROVIDERS: ADMIT Family Medicine; ATTEND Internal Medicine
PROC: 30233N1 Transfusion of Nonautologous Red Blood Cells into Peripheral Vein, Percutaneous Approach (ICD-10-PCS; 2018-10-31)
PROC: 02HV33Z Insertion of Infusion Device into Superior Vena Cava, Percutaneous Approach (ICD-10-PCS; 2018-10-31)
PROC: B548ZZA Ultrasonography of Superior Vena Cava, Guidance (ICD-10-PCS; 2018-10-31)
PROC: 30233N1 Transfusion of Nonautologous Red Blood Cells into Peripheral Vein, Percutaneous Approach (ICD-10-PCS; principal; 2018-11-01)
DX: K92.2 Gastrointestinal hemorrhage, unspecified (principal); I21.A1 Myocardial infarction type 2; N17.9 Acute kidney failure, unspecified; D62 Acute posthemorrhagic anemia; I13.0 Hypertensive heart and chronic kidney disease with heart failure and stage 1 through stage 4 chronic kidney disease, or unspecified chronic kidney disease; R65.10 Systemic inflammatory response syndrome (SIRS) of non-infectious origin without acute organ dysfunction; E87.5 Hyperkalemia; E66.01 Morbid (severe) obesity due to excess calories; I50.9 Heart failure, unspecified; E88.09 Other disorders of plasma-protein metabolism, not elsewhere classified; K74.60 Unspecified cirrhosis of liver; N18.9 Chronic kidney disease, unspecified; Z68.34 Body mass index [BMI] 34.0-34.9, adult; F17.210 Nicotine dependence, cigarettes, uncomplicated; D64.9 Anemia, unspecified; I25.10 Atherosclerotic heart disease of native coronary artery without angina pectoris; N14.1 Nephropathy induced by other drugs, medicaments and biological substances; E78.5 Hyperlipidemia, unspecified; E02 Subclinical iodine-deficiency hypothyroidism; E55.9 Vitamin D deficiency, unspecified; J44.9 Chronic obstructive pulmonary disease, unspecified; R73.03 Prediabetes; T50.8X5D Adverse effect of diagnostic agents, subsequent encounter; Z79.82 Long term (current) use of aspirin; Z79.02 Long term (current) use of antithrombotics/antiplatelets; Z95.5 Presence of coronary angioplasty implant and graft; Z91.19 Patient's noncompliance with other medical treatment and regimen
CPT/HCPCS: 36415; 36430; 36569; 71045; 71250; 74018; 74176; 76775; 76937; 80048; 80053; 80061; 81001; 81003; 82043; 82306; 82550; 82553; 82570; 82595; 82652; 82728; 82962; 83036; 83540; 83735; 83880; 83970; 84100; 84132; 84155; 84156; 84165; 84166; 84300; 84443; 84484; 85014; 85018; 85025; 85610; 85730; 86021; 86038; 86160; 86226; 86320; 86325; 86430; 86644; 86704; 86706; 86708; 86709; 86803; 86850; 86900; 86901; 86920; 87081; 87340; 93005; 93306; 93970; 94664; 96374; C9113; J0360; J1120; J1815; J1940; J2354; J2405; J7050; J7070; J7512; P9016; P9047